=== PATIENT | male | born 1940 | race Caucasian/White ===

== ENCOUNTER → 2016-10-10 | Emergency (ER) | payer MEDICARE, BC, OTHER, MEDICAID ==
[~2016-10-10] VITALS: Ht 180.3 cm; Wt 95.3 kg
[~2016-10-10] MED LIST: ASPI1TAB PO; CALCTAB41 PO; COUM7.5T PO; DIGO0.12 PO; FISH1000 PO; FURO40TA2 PO; GLIM2TAB PO; LOVA1CAP17 PO; METO25TAB PO; MULTCAP PO; NS 500 ML IV ONE; SIMV40TA2 PO; TYLE325T5 PO; VITA200028 PO; VITA500046 PO; WARF-23 PO
[2016-10-10 12:53] LABS: CALCIUM LEVEL 9.8 MG/DL (8.8-10.2); CREATININE FOR GFR 1.51 MG/DL (0.70-1.30); GLOMERULAR FILTRATION RATE 48.1 (>42); POTASSIUM SERUM 3.9 MEQ/L (3.5-5.1)
[2016-10-10 13:27] LABS: MEAN CORPUSCULAR HEMOGLOBIN 30.6 pg (27.0-33.0); MEAN CORPUSCULAR VOLUME 92.7 fl (80.0-96.0); NEUTROPHILS % 65.6 % (36.0-66.0); PLATELET COUNT, AUTOMATED 236 k/mm3 (150-450); RED CELL DISTRIBUTION WIDTH 13.6 % (11.5-14.5); WHITE BLOOD COUNT 8.3 K/mm3 (4.0-10.0)
[2016-10-10 13:28] LABS: BASO # 0.1 K/mm3 (0.0-0.2); BASO % 1.6 % (0.0-1.0); DIFF SLIDE NUMBER 214; EOS # 0.3 K/mm3 (0.0-0.50); EOS % 3.6 % (0.0-3.0); LARGE UNSTAINED CELL # 0.2 K/mm3 (0.0-0.4); LYMPH # 1.8 K/mm3 (1.5-4.5); LYMPH % 21.9 % (24.0-44.0); MONO # 0.5 K/mm3 (0.0-0.8); MONO % 5.4 % (0.0-5.0); NEUTROPHILS # 5.5 K/mm3 (1.8-7.7)
--- NOTE | 2016-10-10 13:28 | REP ---
PORTABLE CHEST, ONE VIEW: HISTORY: Chest pain. COMPARISON: 05/21/2014. The lungs are clear. The cardiac silhouette is enlarged. The pulmonary vasculature is normal in appearance. IMPRESSION: Cardiomegaly. Signed by Joseph Corley MD 10/10/2016 01:30 P
[2016-10-10 13:32] LABS: INR 1.95
[2016-10-10 18:23] VITALS: BP 171/80
--- NOTE | 2016-10-13 08:15 | ECGEPIP ---
Stationary ECG Study [facility] - ED Test Date: 2016-10-10 Pat Name: BELIA PENA Department: Room: - Gender: M Carpenter Assembler: AYUSH : 1940 Requested By: SHARONDA Torres Order Number: [id number] Reading MD: Oswaldo London Measurements Intervals [place] Rate: 76 P: HI: 0 QRS: -60 QRSD: 190 T: 91 QT: 416 QTc: 470 Interpretive Statements ELECTRONIC VENTRICULAR PACEMAKER WITH PVCs Electronically Signed On 10-13-2016 8:15:02 EDT by Oswaldo London
== END | disposition home or self-care (01) ==
LOC: EDUNIT# 10:25 → M ED 17:48
DX: R53.83 Other fatigue (principal); R00.2 Palpitations; I51.7 Cardiomegaly; I50.9 Heart failure, unspecified; I10 Essential (primary) hypertension; Z95.0 Presence of cardiac pacemaker

== ENCOUNTER → 2017-07-15 | Outpatient (REF) | payer MEDICARE, OTHER ==
[2017-07-15 16:56] LABS: URIC ACID 7.1 MG/DL (3.5-7.2)
== END ==
LOC: M SFHCCLAY 11:27
DX: M10.9 Gout, unspecified (principal)
CPT/HCPCS: 84550

== ENCOUNTER → 2017-08-06 | Outpatient (REF) | payer MEDICARE, OTHER ==
[2017-08-06 17:21] LABS: URIC ACID 6.5 MG/DL (3.5-7.2)
== END ==
LOC: M SFHCCLAY 11:36
DX: M1A.0710 Idiopathic chronic gout, right ankle and foot, without tophus (tophi) (principal)
CPT/HCPCS: 84550

== ENCOUNTER → 2020-02-08 | Outpatient (REF) | payer MEDICARE, OTHER ==
[~2020-02-08] MED LIST changes: -ASPI1TAB PO; +ASPI81TA26 PO; -COUM7.5T PO; +COUM7.5T6 PO; -GLIM2TAB PO; +GLIM2TAB4 PO; +METO1TAB63 PO; -METO25TAB PO; -NS 500 ML IV ONE; -SIMV40TA2 PO; +SIMV40TA20 PO
[2020-02-08 16:39] LABS: HEMATOCRIT 38.8 % (42.0-52.0); HEMOGLOBIN 12.3 g/dl (13.5-17.5); MEAN CORPUSCULAR HEMOGLOBIN 29.7 pg (27.0-33.0); MEAN CORPUSCULAR HGB CONC 31.7 g/dl (32.0-36.5); MEAN CORPUSCULAR VOLUME 93.7 fl (80.0-96.0); PLATELET COUNT, AUTOMATED 209 10^3/uL (150-450); RED BLOOD COUNT 4.14 10^6/uL (4.30-6.10); WHITE BLOOD COUNT 8.1 10^3/uL (4.0-10.0)
[2020-02-08 17:03] LABS: CALCIUM LEVEL 9.1 MG/DL (8.8-10.2); CREATININE FOR GFR 1.28 MG/DL (0.70-1.30); GLOMERULAR FILTRATION RATE 57.7 (>42); POTASSIUM SERUM 4.1 MEQ/L (3.5-5.1); URIC ACID 5.5 MG/DL (3.5-7.2)
[2020-02-08 17:30] LABS: HEMOGLOBIN A1c 5.6 %
== END ==
LOC: M SFHCCLAY 11:43
PROVIDERS: ATTEND Family Medicine
DX: I48.20 Chronic atrial fibrillation, unspecified (principal); E11.9 Type 2 diabetes mellitus without complications; E79.0 Hyperuricemia without signs of inflammatory arthritis and tophaceous disease; Z87.19 Personal history of other diseases of the digestive system; Z23 Encounter for immunization
CPT/HCPCS: 80048; 83036; 83540; 84550; 85027; 90682; G0008; G0463

== ENCOUNTER → 2020-09-26 | Outpatient (CLI) | payer MEDICARE, OTHER ==
--- NOTE | 2020-09-26 11:32 | REP ---
INDICATION: LEFT HIP PAIN COMPARISON: None. TECHNIQUE: AP and frog-lateral views of the left hip FINDINGS: Advanced arthritic changes include essentially complete joint space obliteration with periarticular sclerosis/heterogeneity and small cystic changes as well as marginal spurring/early osteophyte formation. No acute fracture or dislocation. IMPRESSION: Early advanced osteoarthritic degenerative changes. <Electronically signed by Randall Abdullahi > 09/26/20 1125
== END ==
LOC: M CLY 11:01
PROVIDERS: ATTEND Family Medicine
DX: M16.12 Unilateral primary osteoarthritis, left hip (principal); M25.552 Pain in left hip; Z79.01 Long term (current) use of anticoagulants
CPT/HCPCS: 73502; 85610; G0463

== ENCOUNTER → 2020-10-02 | Outpatient (CLI) | payer MEDICARE, OTHER ==
--- NOTE | 2020-10-02 15:27 | REP ---
INDICATION: R05 COMPARISON: 10/10/2016 TECHNIQUE: PA and lateral. FINDINGS: Cardiomegaly is appreciated with single lead pacemaker in satisfactory position. The lung li demonstrate chronic appearing changes without acute consolidation, effusion, or pneumothorax. The skeletal structures are intact and normal. IMPRESSION: Cardiomegaly. No acute cardiopulmonary process. <Electronically signed by Randall Abdullahi > 10/02/20 7231
== END ==
LOC: M CLY 15:03
PROVIDERS: ATTEND Physician Assistant
DX: I51.7 Cardiomegaly (principal); R05 Cough; Z95.0 Presence of cardiac pacemaker
CPT/HCPCS: 71046; G0463

== ENCOUNTER → 2021-02-23 | Outpatient (CLI) | payer MEDICARE, BC, OTHER ==
[~2021-02-23] MED LIST changes: +ALLO100T PO; +BENE1POW5 PO; +ERGO500029 PO; +FERR325T81 PO; +SENO8.6T5 PO; +SIMV10TA21 PO; +VITMTA PO; +WARF4TAB51 PO
== END ==
LOC: M LABSMTC 09:46
PROVIDERS: ATTEND Anesthesiology
DX: Z01.812 Encounter for preprocedural laboratory examination (principal); Z20.822 Contact with and (suspected) exposure to COVID-19

== ENCOUNTER 2021-02-28 07:24 | Day surgery (SDC) | payer MEDICARE, BC, OTHER ==
[~2021-02-28] VITALS: Ht 180.3 cm; Wt 102.0 kg
[~2021-02-28 07:24] MED LIST changes: +LR 1,000 ML IV SCH; +MAXITROL OPHTH SUSP 5 ML As Ordered ONE; +MIDAZOLAM INJ 2MG/2ML VIAL (J2250 PER 1MG) As Ordered ONE; +fentaNYL 100 MCG/2 ML INJECTION (J3010) As Ordered ONE
--- OUTSIDE RECORDS SUMMARY | 2021-02-28 07:33 | CCD ---
Author Author [facility] Organization [facility] Address Unknown Phone Unavailable Care Team Providers Care Avionics Systems Integration Specialist Name Role Phone Thomas Griffith Unavailable PROBLEMS Type Condition ICD9-CM Code PRU42-SW Code Onset Dates Condition S tatus W/U Status Risk SNOMED Code Notes Problem Encounter for therapeutic drug monitoring Z51.81 Active confirmed 969875349 Problem Diabetes mellitus E11.9 Active confirmed 73 903721 Problem Acute gout of right foot, unspecified cause M10.9 Active confirmed 054334621 Problem S/P cardiac pacemaker procedure Z95.0 Active confi rmed 996327270 Problem Encounter for general adult medical exam ination with abnormal findings Z00.01 Active confirmed 721250301 Problem Dementia without behavioral disturbance, unspeci fied dementia type F03.90 Active confirmed 69954450 Problem Nocturnal hypoxemia G47.34 Active confirmed 679362482 Problem Other insomnia G47.09 Active confirmed 15445 2001 Problem Diverticulosis K57.90 Active confirmed 02471 1000 Problem Atrial fibrillation, persistent I48.19 Active confi rmed 537814933 Problem History of GI bleed Z87.19 Active confirmed 795927851 Problem long-term current use of anticoagulant therapy Z79 .01 Active confirmed 858028765 Problem Hyperuricemia E79.0 Active confirmed 063925 06 Problem long-term (current) use of anticoagulants Z79.01 Active confirmed 032884105 Problem Longstanding persistent atrial fibrillation I48.11 Active confirmed 676824433 Problem Constipation, unspecified constipation type K59.00 Active confirmed 62008340 Problem 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 Active confirmed [id number] ALLERGIES No Known Allergies ENCOUNTERS from 1940 to 2021-02-22 Encounter Location Date Provider Diagnosis [facility] August LY [phone] [place] [address] Feb, Thomas Griffith Encounter for immunization Z23 ; Pre-op exam Z01.818 ; Diabetes mellitus E11.9 ; Acute gout of right foot, unspecified cause M10.9 ; Longstanding persistent atrial fibrillation I48.11 ; Atrial fibrillation, persistent I48.19 and S/P cardiac pacemaker procedure Z95.0 IMMUNIZATIONS Vaccine Route Administration Date Status Influenza (High Dose 65 & up) Unknown Apr 10, 2018 Ad ministered Zoster 50mcg/0.5mL Shingrix Unknown August 18, 2018 Admi nistered Zoster 50mcg/0.5mL Shingrix Unknown October 18, 2018 Admi nistered JJ/Ethan COVID-19 (given elsewhere) SA RS-COV-2 vaccine, vector non- replicating, recombinant spike protein-Ad26, preservative free, 0.5 mL Unknown August 09, 2020 Administered Influenza (High Dose 65 & up) IM Intramuscular Mar 08, 2015 A dministered Influenza (High Dose 65 & up) IM Intramuscular Feb 07, 2016 A dministered Influenza (High Dose 65 & up) Unknown Feb 18, 2017 Ad ministered Influenza 6mo & up Fluzone IM Intramuscular May 14, 2010 Admi nistered Influenza 18 yrs & older Flublok IM Intramuscular Feb 08, 2020 Administered Influenza 18 yrs & older Flublok IM Intramuscular Feb 21, 2021 Administered Pneumococcal Adult 0.5mL Pneumovax 23 IM Intramuscular Dec 27 021 Administered Pneumococcal Adult 0.5mL Pneumovax 23 Unknown Jan 10 004 Administered TDAP 0.5mL (Boostrix) IM Intramuscular Dec 08, 2017 Administe red Pneumococcal 0.5mL Prevnar 13 IM Intramuscular Feb 07, 2016 A dministered Influenza 6mo & up Fluzone IM Intramuscular Apr 12, 2014 Admi nistered Influenza 6mo & up Fluzone IM Intramuscular Feb 24, 2013 Admi nistered Influenza 6mo & up Fluzone IM Intramuscular Mar 23, 2012 Admi nistered Influenza 6mo & up Fluzone IM Intramuscular Apr 09, 2011 Admi nistered SOCIAL HISTORY Tobacco Use: Social History Observation Description Date Details (start date - stop date) Former Smoker Sex Assigned At : Social History Observation Description Sex Assigned At Unknown Audit Question Answer Notes Total Score: 0 Interpretation: Alcohol Education Sexual Hx: Question Answer Notes Had sex in the last 12 months (vaginal, oral, or anal)? No Have you ever had an STD? No Drug and Alcohol Question Answer Notes Total Score: 0 Interpretation: No problems reported Alcohol Screening: Question Answer Notes Did you have a drink containing alcohol in the past year? No Points 0 Interpretation Negative BMI Care Goal Follow-Up Question Answer Notes Above Normal BMI Follow-Up Dietary management educatio n, guidance, and counseling Tobacco Use: Question Answer Notes Are you a: former smoker former smoker quit 1 997 Additional Findings: Tobacco User none Additional Findings: Tobacco Non-User Current non-smoker How long has it been since you last smoked? > 10 years updated 02/21/2021 REASON FOR REFERRAL No Information VITAL SIGNS Weight 227 lbs Feb, Height 71" in Feb, BMI 31.66 kg/m2 Feb, Heart Rate 68 /min Feb, Respiratory Rate 19 /min Feb, Temperature 97.8 degrees Fahrenheit Feb, Oximetry 97RA Feb, Blood pressure systolic 114 mm Hg Feb, Blood pressure diastolic 75 mm Hg Feb, MEDICATIONS Medication SIG (Take, Route, Frequency, Duration) Notes Start Da te End Date Status Lancets as directed - daily Jul, Act aaron Iron 325 (65 Fe) MG 1 tablet Orally every other day Active Multivitamins 1 tab Orally once a day Active Ergocalciferol 27224 UNIT 1 capsule Orally weekly Active Warfarin Sodium 2 MG 4 tablet (or as directed) Orally Once a day Active Senokot S 8.6-50 MG 1 tablet Orally bid Nov, Active Glimepiride 2MG 1 tab daily Daily Ac tive Zocor 10MG take 1 tablet once daily every evening Orally Once a day Active Flonase Allergy Relief 50 MCG/ACT 1 spray in each nostril Nasall y bid Oct, Active Glucostix - as directed In Vitro daily Jul, Active Benefiber - 1-3 tsp Orally Daily Nov, A ctive Furosemide 40 MG 1 tablet Orally bid, with 3r d dose if weight up 4 lb in am.(Dr. Chacon) for 90 day(s) Active Allopurinol 100 MG 2 tablet Orally Once a day Active PROCEDURES from 1940 to 2021-02-22 Procedure Date Ordered Result Body Site Imm: Flublok Quadrivalent 18 years & older 0.5mL IM Influenza 21-02-21 N/A RESULTS Component Value Reference Range PT-INR Fingerstick Reviewed date:02/21/2021 15:18:11 Interpretation: Performing Lab:[facility] [place] [address] INR 2.3 Verified Patient's Name and yes Current Dose 1 8mg Mon and Fri Current Dose 2 7mg ROW Tab Strength 2mg tabs Indication for Anticoagulation AFIB Recent Bleeding no Internal QC Acceptable (Y/N) yes Therapeutic Range 2-3 Education Given (Date / Initials) New Dose 1 no change in dose per New Dose 2 Weekly Total Next PT-INR 4 weeks 2021 - daughter aware - REASON FOR VISIT LEFT EYE CATARACT REMOVAL EKG TO BE DONE LOCAL W/SEDATION DR RICHARDSON /1 week INR check also MEDICAL (GENERAL) HISTORY Type Description Date Medical History HYPERTENSION Medical History ALCOHOLISM Medical History COPD Medical History OBESITY Medical History ANEMIA Medical History ABNORMAL LIVER FUNCTION, NEG ATIVE HEPATITIS SCREEN NEGATIVE ULTRASOUND OF THE LIVER 06/12 Medical History DIABETES 2001 Medical History ELEVATED CHOLESTEROL Medical History LOW VITAMIN D Medical History ATRIAL FIBRILLATION 05/14 Medical History NO COLONOSCOPY Medical History Echo 05/19/14 showed EF of 35% Medical History pacemaker Medical History Chronic atrial fibrillation Surgical History pacemaker 09/30/2016 Surgical History UGI Bleed 10/14/2019 Hospitalization History [facility] fluid retention 07/2014 Hospitalization History UGI bleed 10/14/2019 Goals Section No Information Health Concerns No Information MEDICAL EQUIPMENT No Information MENTAL STATUS No Information FUNCTIONAL STATUS No Information ASSESSMENTS Encounter Date Diagnosis Assessment Notes Treatment Notes Treatm ent Clinical Notes Feb, Encounter for immunization (ICD-10 - Z23) Patient Educated with: Flu Recombinant [id number] (Flu Recombinant [id number].pdf) Feb, Pre-op exam (ICD-10 - Z01.818) 1. Urgency of the surgery: elective 2. Active Cardiac Conditions: none 3. Surgery-specific risk: low 4: Patient's functional capacity: Low 5: Clinical risk factors: Patient is a suitable low risk candidate for the proposed operation. Patent should not take his meds that morning. It is ok to continue warfarin without interruption since bleeding is not anticipated during the procedure but if his surgeon needs for him to stop then he may interrupt the med for 3 days before the procedure. Recommendation: Feb, Diabetes mellitus (ICD-10 - E11.9) Feb, Acute gout of right foot, unspecified cause (ICD -10 - M10.9) Feb, Longstanding persistent atrial fibrillation (ICD -10 - I48.11) Feb, Atrial fibrillation, persistent (ICD-10 - I48.19 ) continue warfarin at current dose, repeat INR 4 weeks Feb, S/P cardiac pacemaker procedure (ICD-10 - Z95.0) PLAN OF TREATMENT Medication Medication Name Sig Start Date Stop Date Multivitamins 1 tab Orally once a day Warfarin Sodium 2 MG 4 tablet (or as directed) Orally Once a da y Iron 325 (65 Fe) MG 1 tablet Orally every other day Benefiber - 1-3 tsp Orally Daily Nov, Ergocalciferol 39146 UNIT 1 capsule Orally weekly Flonase Allergy Relief 50 MCG/ACT 1 spray in each nostril Na nick bid Oct, Senokot S 8.6-50 MG 1 tablet Orally bid Nov, Glimepiride 2MG 1 tab daily Daily Allopurinol 100 MG 2 tablet Orally Once a day Zocor 10MG take 1 tablet once daily every evening Orally Once a day Lancets as directed - daily Jul, Glucostix - as directed In Vitro daily Jul, Treatment Notes Assessment Notes Clinical Notes Encounter for immunization Patient Educated with: Flu Recombinant [id number] (Flu Recombinant [id number].pdf) Pre-op exam 1. Urgency of the surgery: e lective2. Active Cardiac Conditions: none3. Surgery-specific risk: low4: Patient's functional capacity: Low5: Clinical risk factors: Patient is a suitable low risk candidate for the proposed operation. Patent should not take his meds that morning. It is ok to continue warfarin without interruption since bleeding is not anticipated during the procedure but if his surgeon needs for him to stop then he may interrupt the med for 3 days before the procedure.Recommendation: Atrial fibrillation, persistent continue warfarin at c urrent dose, repeat INR 4 weeks Next Appt Details 3 Months Reason: Provider Name:Emma Alfonso, 2021-03 07:15:00 AM, [address] , , [place], [address], Provider Name:Thomas Griffith, 2021-04-11 11 :00:00 AM, [address], , [place], [address], Insurance Providers Payer Name Payer Address Payer Phone Insured Name Patient Relati onship to Insured Coverage Start Date Coverage End Date [facility] [address] [facility] [id number] [facility] MEDICARE Part A and B [address] [facility] [phone] BELIA PENA self
--- OUTSIDE RECORDS SUMMARY | 2021-02-28 07:33 | CCD ---
Author Author [facility] Organization [facility] Address Unknown Phone Unavailable Care Team Providers Care Instructional Interventionist Name Role Phone Thomas Griffith Unavailable PROBLEMS Type Condition ICD9-CM Code KXL96-JV Code Onset Dates Condition S tatus W/U Status Risk SNOMED Code Notes Problem Encounter for therapeutic drug monitoring Z51.81 Active confirmed 738021965 Problem Diabetes mellitus E11.9 Active confirmed 73 993622 Problem Acute gout of right foot, unspecified cause M10.9 Active confirmed 726325148 Problem S/P cardiac pacemaker procedure Z95.0 Active confi rmed 434445322 Problem Encounter for general adult medical exam ination with abnormal findings Z00.01 Active confirmed 069425779 Problem Dementia without behavioral disturbance, unspeci fied dementia type F03.90 Active confirmed 90433876 Problem Nocturnal hypoxemia G47.34 Active confirmed 774267618 Problem Other insomnia G47.09 Active confirmed 79932 2001 Problem Diverticulosis K57.90 Active confirmed 46031 1000 Problem Atrial fibrillation, persistent I48.19 Active confi rmed 868010833 Problem History of GI bleed Z87.19 Active confirmed 223099358 Problem custodial current use of anticoagulant therapy Z79 .01 Active confirmed 200175456 Problem Hyperuricemia E79.0 Active confirmed 486005 06 Problem custodial (current) use of anticoagulants Z79.01 Active confirmed 638537776 Problem Longstanding persistent atrial fibrillation I48.11 Active confirmed 032292619 Problem Constipation, unspecified constipation type K59.00 Active confirmed 33593901 Problem 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 Active confirmed [id number] ALLERGIES No Known Allergies ENCOUNTERS from 1940 to 2021-02-19 Encounter Location Date Provider Diagnosis [facility] August LY [phone] [place] [address] Feb, 2021 Thomas Griffith 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.01 and Atrial fibrillation, persistent I48.19 IMMUNIZATIONS Vaccine Route Administration Date Status Influenza (High Dose 65 & up) Unknown Apr 10, 2018 Ad ministered Zoster 50mcg/0.5mL Shingrix Unknown August 18, 2018 Admi nistered Zoster 50mcg/0.5mL Shingrix Unknown October 18, 2018 Admi nistered JJ/[employer] COVID-19 (given elsewhere) SA RS-COV-2 vaccine, vector [...] Flublok IM Intramuscular Feb 08, 2020 Administered Pneumococcal Adult 0.5mL Pneumovax 23 IM Intramuscular Dec 27, 021 Administered Pneumococcal Adult 0.5mL Pneumovax 23 Unknown Jan 10, 004 Administered TDAP 0.5mL (Boostrix) IM Intramuscular [...] you last smoked? > 10 years updated 12/27/2020 REASON FOR REFERRAL No Information VITAL SIGNS No information MEDICATIONS Medication SIG (Take, Route, Frequency, Duration) Notes Start Da te End Date Status Benefiber - 1-3 tsp Orally Daily Nov, A ctive Glucostix - as directed In Vitro daily Jul, Active Lancets as directed - daily Jul, Act aaron Allopurinol 100 MG 2 tablet Orally Once a day for 90 day(s) Active Warfarin Sodium 2 MG 4 tablet (or as directed) Orally Once a day for 90 day(s) Active Flonase Allergy Relief 50 MCG/ACT 1 spray in each nost ril Nasally bid for 90 day(s) Oct, Active Senokot S 8.6-50 MG 1 tablet Orally bid for 90 day(s) 2019 Active Zocor 10MG take 1 tablet once daily e very evening Orally Once a day for 90 day(s) Active Iron 325 (65 Fe) MG 1 tablet Orally every other day Active Furosemide 40 MG 1 tablet Orally bid, with 3r d dose if weight up 4 lb in am.(Dr. Chacon) for 90 day(s) Active Multivitamins 1 tab Orally once a day Active Glimepiride 2MG 1 tab daily Daily for 90 day(s) Active Ergocalciferol 41726 UNIT 1 capsule Orally weekly for 90 day(s) Active PROCEDURES No Information RESULTS Component Value Reference Range PT-INR Reviewed date:02/14/2021 17:12:02 Interpretation: Performing Lab:[facility] [place], [place] [address] INR 1.54 Verified Patient's Name and Done @ [facility] Current Dose 1 8mg Mon and Fri Current Dose 2 7mg ROW Tab Strength Indication for Anticoagulation AFIB Ecchymosis or Bleeding Noted INR Range 2-3 Prothrombin Time/INR 15.9 Protime 1.54 Hold for Day(s) Education Given (Date / Initials) New Dose 1 per no change recheck 1 week New Dose 2 Next PT Check 1 week daughter aware Comments for PT-INR REASON FOR VISIT [facility] PT/INR MEDICAL (GENERAL) HISTORY Type Description Date Medical [...] Treatment Notes Treatm ent Clinical Notes Feb, moth exterminator current use of anticoagulant therapy ( ICD-10 - Z79.01) Feb, Atrial fibrillation, persistent (ICD-10 - I48.19 ) PLAN OF TREATMENT Medication Medication Name Sig Start Date Stop Date Warfarin Sodium 2 MG 4 tablet (or as directed) Orally Once a day for 90 day(s) Glimepiride 2MG 1 tab daily Daily for 90 day(s) Allopurinol 100 MG 2 tablet Orally Once a day for 90 day(s) Lancets as directed - daily Jul, Senokot S 8.6-50 MG 1 tablet Orally bid for 90 day(s) Nov, 20 Benefiber - 1-3 tsp Orally Daily Nov, Zocor 10MG take 1 tablet once daily e very evening Orally Once a day for 90 day(s) Glucostix - as directed In Vitro daily Jul, Furosemide 40 MG 1 tablet Orally bid, with 3r d dose if weight up 4 lb in am.(Dr. Chacon) for 90 day(s) Ergocalciferol 20749 UNIT 1 capsule Orally weekly for 90 day(s) Flonase Allergy Relief 50 MCG/ACT 1 spray in each nost ril Nasally bid for 90 day(s) Oct, Iron 325 (65 Fe) MG 1 tablet Orally every other day Multivitamins 1 tab Orally once a day Next Appt Details Provider Name:Thomas Griffith, 2021-02-21 09 :00:00 AM, [address], , [place], [address], Provider Name:Thomas Griffith, 2021-04-11 11 :00:00 AM, [address], , [place], [address], Insurance Providers Payer Name Payer Address Payer Phone Insured Name Patient Relati onship to Insured Coverage Start Date Coverage End Date MEDICARE Part A and B [address] [facility] [phone] BELIA PENA [facility] [address] [facility] [id number] BELIA PENA
--- OUTSIDE RECORDS SUMMARY | 2021-02-28 07:33 | CCD ---
Author Author [facility] Organization [facility] Address Unknown Phone Unavailable Care Team Providers Care Chief Nurse Executive Name Role Phone Emma Alfonso Unavailable PROBLEMS Type Condition ICD9-CM Code NAD90-EL Code Onset Dates Condition S tatus W/U Status Risk SNOMED Code Notes Problem Encounter for therapeutic drug monitoring Z51.81 Active confirmed 239587388 Problem Diabetes mellitus E11.9 Active confirmed 73 845684 Problem Acute gout of right foot, unspecified cause M10.9 Active confirmed 121551871 Problem S/P cardiac pacemaker procedure Z95.0 Active confi rmed 957781588 Problem Encounter for general adult medical exam ination with abnormal findings Z00.01 Active confirmed 041893246 Problem Dementia without behavioral disturbance, unspeci fied dementia type F03.90 Active confirmed 10752482 Problem Nocturnal hypoxemia G47.34 Active confirmed 759753234 Problem Other insomnia G47.09 Active confirmed 93171 2001 Problem Diverticulosis K57.90 Active confirmed 49098 1000 Problem Atrial fibrillation, persistent I48.19 Active confi rmed 270591523 Problem History of GI bleed Z87.19 Active confirmed 229111150 Problem half-way current use of anticoagulant therapy Z79 .01 Active confirmed 925506643 Problem Hyperuricemia E79.0 Active confirmed 914127 06 Problem terminal carman (current) use of anticoagulants Z79.01 Active confirmed 597724391 Problem Longstanding persistent atrial fibrillation I48.11 Active confirmed 788245461 Problem Constipation, unspecified constipation type K59.00 Active confirmed 03165954 Problem 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 Active confirmed 773748047256442 ALLERGIES No Known Allergies ENCOUNTERS from 1940 to 2021-02-05 Encounter Location Date Provider Diagnosis [facility] August LY [phone] [place] [address] Jan, 2021 Emma Alfonso half-way current use of anticoagulant t herapy Z79.01 and Atrial fibrillation, persistent I48.19 IMMUNIZATIONS Vaccine Route Administration Date Status Influenza (High Dose 65 & up) Unknown Apr 10, 2018 Ad ministered Zoster 50mcg/0.5mL Shingrix Unknown August 18, 2018 Admi nistered Zoster 50mcg/0.5mL Shingrix Unknown October 18, 2018 Admi nistered J&J/Ethan COVID- 19 (given elsewhere) SARS-COV-2 vaccine, vector non- replicating, recombinant spike protein-Ad26, [...] daily Daily for 90 day(s) Active Ergocalciferol 74442 UNIT 1 capsule Orally weekly for 90 day(s) Active PROCEDURES No Information RESULTS Component Value Reference Range PT-INR Reviewed date:01/31/2021 13:43:57 Interpretation: Performing Lab:[facility], [place] [address] INR Verified Patient's Name and [facility] Current Dose 1 8mg mon and fri Current Dose 2 7mg ROW Tab Strength Indication for Anticoagulation AFIB Ecchymosis or Bleeding Noted INR Range 2-3 Prothrombin Time/INR 23.7 Protime 2.30 Hold for Day(s) Education Given (Date / Initials) New Dose 1 no change per New Dose 2 Next PT Check 2 weeks 02/14/2021 Comments for PT-INR Cristofer aware REASON FOR VISIT FS/INR MEDICAL (GENERAL) HISTORY Type Description Date Medical [...] Notes Treatment Notes Treatm ent Clinical Notes Jan, terminal carman current use of anticoagulant therapy ( ICD-10 - Z79.01) Jan, Atrial fibrillation, persistent (ICD-10 - I48.19 ) [...] in am.(Dr. Chacon) for 90 day(s) Ergocalciferol 28444 UNIT 1 capsule Orally weekly for 90 day(s) Flonase Allergy Relief 50 MCG/ACT 1 spray in each nost ril Nasally bid for 90 day(s) Oct, Iron 325 (65 Fe) MG 1 tablet Orally every other day Multivitamins 1 tab Orally once a day Next Appt Details Provider Name:Thomas Addison Griffith, 2021-02-14 09 :00:00 AM, [address] , , [place], [address], Provider Name:Thomas Addison Nacho, 2021-02-21 09 :00:00 AM, [address] , , [place], [address], Provider Name:Thomas Cyn Griffith, 2021-04-11 11 :00:00 AM, [address], , [place], [address], Insurance Providers Payer Name Payer Address Payer Phone Insured Name Patient Relati onship to Insured Coverage Start Date Coverage End Date [facility] [address] [facility] [id number] [phone] BELIA PENA self MEDICARE Part A and B [address] [facility] [address] [phone] BELIA PENA self
--- OUTSIDE RECORDS SUMMARY | 2021-02-28 07:34 | CCD ---
Author Author [facility] Organization [facility] Address Unknown Phone Unavailable Care Team Providers Care Defence Force Member Other Ranks Name Role Phone Cyn Collier MD Unavailable Unavailable Cyn Collier MD Unavailable Unavailable Cyn Collier MD Unavailable Unavailable Cyn Collier MD Unavailable Unavailable Cyn Collier MD Unavailable Unavailable Cyn Collier MD Unavailable Unavailable Cyn Collier MD Unavailable Unavailable Cyn Collier MD Unavailable Unavailable Cyn Collier MD Unavailable Unavailable Cyn Collier MD Unavailable Unavailable Cyn Collier MD Unavailable Unavailable Cyn Collier MD Unavailable Unavailable Cyn Collier MD Unavailable Unavailable Cyn Collier MD Unavailable Unavailable Cyn Collier MD Unavailable Unavailable Cyn Collier MD Unavailable Unavailable Cyn Collier MD Unavailable Unavailable Cyn Collier MD Unavailable Unavailable Cyn Collier MD Unavailable Unavailable Cyn Collier MD Unavailable Unavailable Cyn Collier MD Unavailable Unavailable Cyn Collier MD Unavailable Unavailable Cyn Collier MD Unavailable Unavailable Cyn Collier MD Unavailable Unavailable Cyn Collier MD Unavailable Unavailable Cyn Collier MD Unavailable Unavailable Cyn Collier MD Unavailable Unavailable Cyn Collier MD Unavailable Unavailable Cyn Collier MD Unavailable Unavailable Cyn Collier MD Unavailable Unavailable Cyn Collier MD Unavailable Unavailable Cyn Collier MD Unavailable Unavailable Cyn Collier MD Unavailable Unavailable Cyn Collier MD Unavailable Unavailable Cyn Collier MD Unavailable Unavailable Cyn Collier MD Unavailable Unavailable Cyn Collier MD Unavailable Unavailable Cyn Collier MD Unavailable Unavailable Cyn Collier MD Unavailable Unavailable Cyn Collier MD Unavailable Unavailable Cyn Collier MD Unavailable Unavailable Cyn Collier MD Unavailable Unavailable yCn Collier MD Unavailable Unavailable Cyn Collier MD Unavailable Unavailable Cyn Collier MD Unavailable Unavailable Cyn Collier MD Unavailable Unavailable Cyn Collier MD Unavailable Unavailable Cyn Collier MD Unavailable Unavailable Cyn Collier MD Unavailable Unavailable Cyn Collier MD Unavailable Unavailable Cyn Collier MD Unavailable Unavailable Cyn Collier MD Unavailable Unavailable Cyn Collier MD Unavailable Unavailable Cyn Collier MD Unavailable Unavailable Cyn Collier MD Unavailable Unavailable Cyn Collier MD Unavailable Unavailable Cyn Collier MD Unavailable Unavailable Cyn Collier MD Unavailable Unavailable Cyn Collier MD Unavailable Unavailable Cyn Collier MD Unavailable Unavailable Cyn Collier MD Unavailable Unavailable Cyn Collier MD Unavailable Unavailable Cyn Collier MD Unavailable Unavailable Cyn Collier MD Unavailable Unavailable Cyn Collier MD Unavailable Unavailable Cyn Collier MD Unavailable Unavailable Cyn Collier MD Unavailable Unavailable Cyn Collier MD Unavailable Unavailable Cyn Collier MD Unavailable Unavailable Cyn Collier MD Unavailable Unavailable Cyn Collier MD Unavailable Unavailable Cyn Collier MD Unavailable Unavailable Cyn Collier MD Unavailable Unavailable Cyn Collier MD Unavailable Unavailable Tulio, Reginah W Tanisha NATIONAL ACCOUNT EXECUTIVE-C Unavailable Unavailabl e Utlio, Reginah W Tanisha NATIONAL ACCOUNT EXECUTIVE-C Unavailable Unavailabl e Tulio, Reginah W Tanisha NATIONAL ACCOUNT EXECUTIVE-C Unavailable Unavailabl e Tulio, Reginah W Tanisha NATIONAL ACCOUNT EXECUTIVE-C Unavailable Unavailabl e Tulio, Reginah W Tanisha NATIONAL ACCOUNT EXECUTIVE-C Unavailable Unavailabl e Tulio, Reginah W Tanisha NATIONAL ACCOUNT EXECUTIVE-C Unavailable Unavailabl e Tulio, Reginah W Tanisha NATIONAL ACCOUNT EXECUTIVE-C Unavailable Unavailabl e Tulio, Reginah W Tanisha NATIONAL ACCOUNT EXECUTIVE-C Unavailable Unavailabl e Tulio, Reginah W Tanisha NATIONAL ACCOUNT EXECUTIVE-C Unavailable Unavailabl e Tulio, Reginah W Tanisha NATIONAL ACCOUNT EXECUTIVE-C Unavailable Unavailabl e Tulio, Reginagarret W Tanisha NATIONAL ACCOUNT EXECUTIVE-C Unavailable Unavailabl e Tulio, Reginagarret W Tanisha NATIONAL ACCOUNT EXECUTIVE-C Unavailable Unavailabl e Tulio, Reginagarret W Tanisha NATIONAL ACCOUNT EXECUTIVE-C Unavailable Unavailabl e Tulio, Reymundoinagarret W Tanisha NATIONAL ACCOUNT EXECUTIVE-C Unavailable Unavailabl e Tulio, Reginagarret W Tanisha NATIONAL ACCOUNT EXECUTIVE-C Unavailable Unavailabl e Tulio, Reginagarret W Tanisha NATIONAL ACCOUNT EXECUTIVE-C Unavailable Unavailabl e Tulio, Reginagarret W Tanisha NATIONAL ACCOUNT EXECUTIVE-C Unavailable Unavailabl e Tulio, Reginagarret W Tanisha NATIONAL ACCOUNT EXECUTIVE-C Unavailable Unavailabl e Tulio, Reymundoinagarret W Tanisha NATIONAL ACCOUNT EXECUTIVE-C Unavailable Unavailabl e Tulio, Reginagarret W Tanisha NATIONAL ACCOUNT EXECUTIVE-C Unavailable Unavailabl e Tulio, Reginagarret W Tanisha NATIONAL ACCOUNT EXECUTIVE-C Unavailable Unavailabl e Tulio, Reginagarret W Tanisha NATIONAL ACCOUNT EXECUTIVE-C Unavailable Unavailabl e Tulio, Reginagarret W Tanisha NATIONAL ACCOUNT EXECUTIVE-C Unavailable Unavailabl e Tulio, Reginagarret W Tanisha NATIONAL ACCOUNT EXECUTIVE-C Unavailable Unavailabl e Tulio, Reginagarret W Tanisha NATIONAL ACCOUNT EXECUTIVE-C Unavailable Unavailabl e Tulio, Reginagarret W Tanisha NATIONAL ACCOUNT EXECUTIVE-C Unavailable Unavailabl e Tulio, Regbecky W Tanisha NATIONAL ACCOUNT EXECUTIVE-C Unavailable Unavailabl e Tulio, Reginagarret W Tanisha NATIONAL ACCOUNT EXECUTIVE-C Unavailable Unavailabl e Tulio, Reginagarret W Tanisha NATIONAL ACCOUNT EXECUTIVE-C Unavailable Unavailabl e Tulio, Reginagarret W Tanisha NATIONAL ACCOUNT EXECUTIVE-C Unavailable Unavailabl e Tulio, Reginagarret W Tanisha NATIONAL ACCOUNT EXECUTIVE-C Unavailable Unavailabl e Tulio, Reginagarret W Tanisha NATIONAL ACCOUNT EXECUTIVE-C Unavailable Unavailabl e ERVIN, WAQAS AGGARWAL Unavailable Unavailable ERVINWAQAS MD Unavailable Unavailable ERVINWAQAS MD Unavailable Unavailable ERVINWAQAS MD Unavailable Unavailable ERVINWAAQS MD Unavailable Unavailable ERVINWAQAS MD Unavailable Unavailable ERVINWAQAS MD Unavailable Unavailable ERVINWAQAS MD Unavailable Unavailable ERVINWAQAS MD Unavailable Unavailable ERVIN, WAQAS AGGARWAL Unavailable Unavailable ERVIN, WAQAS AGGARWAL Unavailable Unavailable ERVIN, WAQAS AGGARWAL Unavailable Unavailable ERVIN, WAQAS AGGARWAL Unavailable Unavailable ERVIN, WAQAS AGGARWAL Unavailable Unavailable ERVIN, WAQAS AGGARWAL Unavailable Unavailable ERVIN, WAQAS AGGARWAL Unavailable Unavailable ERVIN, WAQAS AGGARWAL Unavailable Unavailable ERVIN, WAQAS AGGARWAL Unavailable Unavailable ERVIN, WAQAS AGGARWAL Unavailable Unavailable ERVIN, WAQAS AGGARWAL Unavailable Unavailable ERVIN, WAQAS AGGARWAL Unavailable Unavailable ERVIN, WAQAS AGGARWAL Unavailable Unavailable ERVIN, WAQAS AGGARWAL Unavailable Unavailable ERVIN, WAQAS AGGARWAL Unavailable Unavailable ERVIN, WAQAS AGGARWAL Unavailable Unavailable ERVIN, WAQAS AGGARWAL Unavailable Unavailable ERVIN, WAQAS AGGARWAL Unavailable Unavailable ERVIN, WAQAS AGGARWAL Unavailable Unavailable ERVIN, WAQAS AGGARWAL Unavailable Unavailable ERVIN, WAQAS AGGARWAL Unavailable Unavailable ERVIN, WAQAS AGGARWAL Unavailable Unavailable ERVIN, WAQAS AGGARWAL Unavailable Unavailable ERVIN, WAQAS AGGARWAL Unavailable Unavailable ERVIN, WAQAS AGGARWAL Unavailable Unavailable ERVIN, WAQAS AGGARWAL Unavailable Unavailable ERVIN, WAQAS AGGARWAL Unavailable Unavailable ERVIN, WAQAS AGGARWAL Unavailable Unavailable ERVIN, WAQAS AGGARWAL Unavailable Unavailable ERVIN, WAQAS AGGARWAL Unavailable Unavailable ERVIN, WAQAS AGGARWAL Unavailable Unavailable ERVIN, WAQAS AGGARWAL Unavailable Unavailable ERVIN, WAQAS AGGARWAL Unavailable Unavailable ERVIN, WAQAS AGGARWAL Unavailable Unavailable ERVIN, WAQAS AGGARWAL Unavailable Unavailable ERVIN, WAQAS AGGARWAL Unavailable Unavailable ERVIN, WAQAS AGGARWAL Unavailable Unavailable ERVIN, WAQAS AGGARWAL Unavailable Unavailable ERVIN, WAQAS AGGARWAL Unavailable Unavailable ERVIN, WAQAS AGGARWAL Unavailable Unavailable ERVIN, WAQAS AGGARWAL Unavailable Unavailable ERVIN, WAQAS AGGARWAL Unavailable Unavailable ERVIN, WAQAS AGGARWAL Unavailable Unavailable ERVIN, WAQAS AGGARWAL Unavailable Unavailable ERVIN, WAQAS AGGARWAL Unavailable Unavailable ERVIN, WAQAS AGGARWAL Unavailable Unavailable PETROFF, JOSR PA Unavailable Unavailable PETROFF, JOSR PA Unavailable Unavailable PETROFF, JOSR PA Unavailable Unavailable PETROFF, JOSR PA Unavailable Unavailable PETROFF, JOSR PA Unavailable Unavailable PETROFF, JOSR PA Unavailable Unavailable PETROFF, JOSR PA Unavailable Unavailable PETROFF, JOSR PA Unavailable Unavailable Schoeneman, [place] DO Unavailable Unavailable Schoeneman, Emma DO Unavailable Unavailable Schoeneman, [place] DO Unavailable Unavailable Schoeneman, [place] DO Unavailable Unavailable Schoeneman, Emma DO Unavailable Unavailable Schoeneman, [place] DO Unavailable Unavailable Schoeneman, Emma DO Unavailable Unavailable Schoeneman, [place] DO Unavailable Unavailable Schoeneman, [place] DO Unavailable Unavailable Schoeneman, Emma DO Unavailable Unavailable Schoeneman, [place] DO Unavailable Unavailable Schoeneman, [place] DO Unavailable Unavailable Schoeneman, Emma DO Unavailable Unavailable Schoeneman, [place] DO Unavailable Unavailable Schoeneman, [place] DO Unavailable Unavailable Schoeneman, [place] DO Unavailable Unavailable Schoeneman, Emma DO Unavailable Unavailable Schoeneman, Emma DO Unavailable Unavailable Schoeneman, [place] DO Unavailable Unavailable Schoeneman, Emma DO Unavailable Unavailable Schoeneman, Emma DO Unavailable Unavailable Schoeneman, Emma DO Unavailable Unavailable Schoeneman, [place] DO Unavailable Unavailable Schoeneman, Emma DO Unavailable Unavailable Schoeneman, [place] DO Unavailable Unavailable Schoeneman, Emma DO Unavailable Unavailable Schoeneman, [place] DO Unavailable Unavailable Schoeneman, [place] DO Unavailable Unavailable Schoeneman, [place] DO Unavailable Unavailable Schoeneman, Emma DO Unavailable Unavailable Schoeneman, [place] DO Unavailable Unavailable Schoeneman, Emma DO Unavailable Unavailable Schoeneman, Emma DO Unavailable Unavailable Schoeneman, [place] DO Unavailable Unavailable Schoeneman, [place] DO Unavailable Unavailable Schoeneman, Emma DO Unavailable Unavailable Schoeneman, Emma DO Unavailable Unavailable Schoeneman, [place] DO Unavailable Unavailable Schoeneman, Emma DO Unavailable Unavailable Schoeneman, Emma DO Unavailable Unavailable Schoeneman, Emma DO Unavailable Unavailable ILANA PAYAN MD Unavailable Unavailable ILANA PAYAN MD Unavailable Unavailable ILANA PAYAN MD Unavailable Unavailable ILANA PAYAN MD Unavailable Unavailable ILANA PAYAN MD Unavailable Unavailable ILANA PAYAN MD Unavailable Unavailable SCHUYLERILANA Heath MD Unavailable Unavailable SCHUYLERILANA Heath MD Unavailable Unavailable SCHUYLERILANA Heath MD Unavailable Unavailable EUNICE, L DEVON PA Unavailable Unavailable EUNICE, L DEVON PA Unavailable Unavailable EUNICE, L DEVON PA Unavailable Unavailable EUNICE, L DEVON PA Unavailable Unavailable EUNICE, L DEVON PA Unavailable Unavailable EUNICE, L DEVON PA Unavailable Unavailable EUNICE, Jan OSORIO PA Unavailable Unavailable EUNICE, L DEVON PA Unavailable Unavailable EUNICE, L DEVON PA Unavailable Unavailable EUNICE, L DEVON PA Unavailable Unavailable EUNICE, L DEVON PA Unavailable Unavailable EUNICE, L DEVON PA Unavailable Unavailable EUNICE, L DEVON PA Unavailable Unavailable EUNICE, L DEVON PA Unavailable Unavailable EUNICE, L DEVON PA Unavailable Unavailable EUNICE, L DEVON PA Unavailable Unavailable EUNICE, L DEVON PA Unavailable Unavailable EUNICE, L DEVON PA Unavailable Unavailable EUNICE, L DEVON PA Unavailable Unavailable EUNICE, L DEVON PA Unavailable Unavailable EUNICE, L DEVON PA Unavailable Unavailable EUNICE, L DEVON PA Unavailable Unavailable YAYO, A PERLA DO Unavailable Unavailable YAYO, A PERLA DO Unavailable Unavailable YAYO, A PERLA DO Unavailable Unavailable YAYO, A PERLA DO Unavailable Unavailable YAYO, A PERLA DO Unavailable Unavailable YAYO, A PERLA DO Unavailable Unavailable YAYO, A PERLA DO Unavailable Unavailable YAYO, A PERLA DO Unavailable Unavailable YAYO, A PERLA DO Unavailable Unavailable YAYO, A PERLA DO Unavailable Unavailable YAYO, A PERLA DO Unavailable Unavailable YAYO, A PERLA DO Unavailable Unavailable YAYO, A PERLA DO Unavailable Unavailable YAYO, A PERLA DO Unavailable Unavailable YAYO, A PERLA DO Unavailable Unavailable YAYO, A PERLA DO Unavailable Unavailable YAYO, A PERLA DO Unavailable Unavailable YAYO, A PERLA DO Unavailable Unavailable YAYO, A PERLA DO Unavailable Unavailable YAYO, A PERLA DO Unavailable Unavailable YAYO, A PERLA DO Unavailable Unavailable YAYO, A PERLA DO Unavailable Unavailable JERRY, JEREMY ELMIRA PA Unavailable Unavailable JERRY, JEREMY ELMIRA PA Unavailable Unavailable JERRY, JEREMY ELMIRA PA Unavailable Unavailable JERRY, JEREMY ELMIRA PA Unavailable Unavailable JERRY, JEREMY ELMIRA PA Unavailable Unavailable JERRY, JEREMY ELMIRA PA Unavailable Unavailable JERRY, JEREMY ELMIRA PA Unavailable Unavailable JERRY, JEREMY ELMIRA PA Unavailable Unavailable JERRY, JEREMY ELMIRA PA Unavailable Unavailable JERRY, JEREMY ELMIRA PA Unavailable Unavailable JERRY, JEREMY ELMIRA PA Unavailable Unavailable JERRY, JEREMY ELMIRA PA Unavailable Unavailable JERRY, JEREMY ELMIRA PA Unavailable Unavailable JERRY, JEREMY ELMIRA PA Unavailable Unavailable JERRY, JEREMY ELMIRA PA Unavailable Unavailable JERRY, JEREMY ELMIRA PA Unavailable Unavailable JERRY, JEREMY ELMIRA PA Unavailable Unavailable JERRY, JEREMY ELMIRA PA Unavailable Unavailable JERRY, JEREMY ELMIRA PA Unavailable Unavailable JERRY, JEREMY ELMIRA PA Unavailable Unavailable JERRY, JEREMY ELMIRA PA Unavailable Unavailable JERRY, JEREMY ELMIRA PA Unavailable Unavailable Re-disclosure Warning The records that you are about to access may contain information from federally-assisted alcohol or drug abuse programs. If such information is present, then the following federally mandated warning applies: This information has been disclosed to you from records protected by federal confidentiality rules (42 CFR part 2). The federal rules prohibit you from making any further disclosure of this information unless further disclosure is expressly permitted by the written consent of the person to whom it pertains or as otherwise permitted by 42 CFR part 2. A general authorization for the release of medical or other information is NOT sufficient for this purpose. The Federal rules restrict any use of the information to criminally investigate or prosecute any alcohol or drug abuse patient.The records that you are about to access may contain highly sensitive health information, the redisclosure of which is protected by Article 27-F of the [facility] Public Health law. If you continue you may have access to information: Regarding HIV / AIDS; Provided by facilities licensed or operated by the [facility] Office of Mental Health; or Provided by the [facility] Office for People With Developmental Disabilities. If such information is present, then the following [facility] mandated warning applies: This information has been disclosed to you from confidential records which are protected by state law. State law prohibits you from making any further disclosure of this information without the specific written consent of the person to whom it pertains, or as otherwise permitted by law. Any unauthorized further disclosure in violation of state law may result in a fine or shelter sentence or both. A general authorization for the release of medical or other information is NOT sufficient authorization for further disc losure. Allergies and Adverse Reactions Type Description Substance Reaction Status Data Source(s ) Allergy to substance No Known Allergies No known allergies (situation ) [facility] (Gabe Natarajan MD [facility]) Encounters Encounter Providers Location Date Indications Data Source(s ) Outpatient [address] [facility] [place] [id number] 02/21/2021 12:00:00 AM EDT eCW1 ([facility]) Outpatient Attender: Thomas Collier MDReferrer: Thomas combs MD EMERGENCY [facility] 02/14/2021 10:34:00 AM EDT - 02/14/2021 10:34:00 AM EDT [facility] (PT/INR TV) Telephone Encounter Visit [address] [place] [address] 02/14/2021 12:00:00 AM EDT eCW1 (Critical access hospital) Outpatient Attender: Emma Luong: Thomas Collier MD EMERGENCY ROOM-LABOTHPROV 01/31/2021 09:24:00 AM EDT - 01/31/2021 09:24:00 AM [facility] Outpatient [address] [facility] [place] [address] 01/31/2021 12:00:00 AM EDT eCW1 ([facility]) Outpatient Attender: Thomas Negro: Thomas combs MD EMERGENCY ROOM-LABOTHPROV 01/16/2021 09:17:00 AM EDT - 01/16/2021 09:17:00 AM [facility] (PT/INR TV) Telephone Encounter Visit [address] [place] [address] 01/16/2021 12:00:00 AM EDT eCW1 (Critical access hospital) Outpatient [address] [facility] [place] [address] 12/27/2020 12:00:00 AM EDT eCW1 ([facility]) Outpatient Attender: Thomas Negro: Thomas combs MD EMERGENCY ROOM-LABOTHPROV 12/19/2020 09:42:00 AM EDT - 12/19/2020 09:42:00 AM [facility] (PT/INR TV) Telephone Encounter Visit [address] [place] [address] 12/19/2020 12:00:00 AM EDT eCW1 (Critical access hospital) Outpatient Attender: Thomas Negro: Thomas combs MD EMERGENCY ROOM-LABOTHPROV 12/05/2020 09:17:00 AM EDT - 12/05/2020 09:17:00 AM [facility] (PAPERWORK) PAPERWORK (For Provider Blocking) [address] [place] [address] 12/05/2020 12:00:00 AM EDT eCW1 (Critical access hospital) Outpatient Attender: WAQAS MUELLER MD 12/04/2020 09:58:00 AM [facility] Outpatient Attender: WAQAS MUELLER MD [email or web address] 07:39:02 AM EDT - 12/04/2020 02:12:20 PM EDT [facility] Outpatient [email or web address] 11/23/2020 09:29:04 AM EDT [facility] Unknown [address] [facility] [place] [address] 11/22/2020 12:00:00 AM EDT eCW1 ([facility]) Outpatient Attender: Thomas Silvaer: Thomas combs MD EMERGENCY ROOM-LABOTHPROV 11/21/2020 09:40:00 AM EDT - 11/21/2020 09:40:00 AM [facility] (PT/INR TV) Telephone Encounter Visit [address] [place] [address] 11/21/2020 12:00:00 AM EDT eCW1 (Critical access hospital) Unknown [address] [facility] [place] [address] 11/21/2020 12:00:00 AM EDT eCW1 ([facility]) Outpatient Attender: Thomas Negro: Thomas combs MD EMERGENCY ROOM-LABOTHPROV 11/07/2020 09:25:00 AM EDT - 11/07/2020 09:25:00 AM [facility] (PT/INR TV) Telephone Encounter Visit [address] [place] [address] 11/07/2020 12:00:00 AM EDT eCW1 (Critical access hospital) Outpatient Attender: PERLA LIM DO 10/29/2020 08:30 :00 AM [facility] Outpatient Attender: Thomas Negro: Thomas combs MD EMERGENCY ROOM-LABOTHPROV 10/24/2020 09:31:00 AM EDT - 10/24/2020 09:31:00 AM [facility] Preadmit Attender: PERLA LIM DO 10/08/2020 09:00 :00 AM [facility] Preadmit Attender: Tanisha HARDY 10/05/2020 12:49:0 0 PM [facility] [place]patient [address] [facility] [address] 10/02/2020 12:00:00 AM EDT eCW1 ([facility]) [place] [address] [facility] [address] 10/02/2020 12:00:00 AM EDT eCW1 ([facility]) Outpatient [address] [facility] [address] 09/26/2020 12:00:00 AM EDT eCW1 ([facility]) Outpatient Attender: Thomas ROWLANDeferrer: Thomas combs [facility] 08/29/2020 09:38:00 AM EDT - 08/29/2020 09:38:00 AM [facility] (PT/INR TV) Telephone Encounter Visit [address] [place] [address] 08/29/2020 12:00:00 AM EDT eCW1 (Critical access hospital) [place] [address] [facility] [address] 08/24/2020 12:00:00 AM EDT eCW1 ([facility]) <td ID="encounterTypeDescriptionID0">NEW PATIENT WITH REFERRAL</td><td>Perla Lim DO</td><td>Gabe Porras MD [facility]</td><td>08/23/2020</td><td>12:39PM</td><td>1:48PM</td><td><content ID="encounterDiagnosisID0-0">Dry Eye Syndrome</content>, <content ID="encounterDiagnosisID0-1">Cataract Senile Nuclear</content>, <content ID="encounterDiagnosisID0-2">Vitreous Disorders Degeneration</content></td>Outpatient Attender: PERLA Encarnacion MD [facility] 08/23/2020 12:39:00 PM EDT - 08/23/2020 01:48:00 PM ED T Vitreous Disorders DegenerationCataract Senile NuclearDry Eye Syndrome [facility] (Gabe Natarajan MD [facility]) Vitreous Disorders Degeneration Cataract Senile Nuclear Dry Eye Syndrome Outpatient [email or web address] 08/21/2020 10:10:45 AM EDT [facility] Outpatient Attender: Thomas Austinerrer: Thomas combs MD EMERGENCY ROOM-LABOTHPROV 08/01/2020 09:13:00 AM EDT - 08/01/2020 09:13:00 AM EDT [facility] (PT/INR TV) Telephone Encounter Visit [address] [place] [address] 08/01/2020 12:00:00 AM EDT eCW1 (Critical access hospital) Unknown [address] [facility], [facility] [place] [address] 07/13/2020 12:00:00 AM EST eCW1 ([facility]) Outpatient Attender: Thomas Austinerrer: Thomas combs MD EMERGENCY ROOM-LABOTHPROV 07/04/2020 09:24:00 AM EST - 07/04/2020 09:24:00 AM [facility] (PT/INR TV) Telephone Encounter Visit [address] [place] [address] 07/04/2020 12:00:00 AM EST eCW1 (Critical access hospital) Outpatient Attender: WAQAS MUELLER MD 06/19/2020 10:07:00 AM [facility] Outpatient Attender: WAQAS MUELLER MD [email or web address] 06/19/2020 08:03:06 AM EST [facility] Outpatient Attender: Thomas Austinerrer: Thomas combs MD EMERGENCY ROOM-LABOTHPROV 06/06/2020 10:01:00 AM EST - 06/06/2020 10:01:00 AM [facility] (PT/INR TV) Telephone Encounter Visit [address] [place] [address] 06/06/2020 12:00:00 AM EST eCW1 (Critical access hospital) Unknown [address] [facility], [facility] [place] [address] 06/06/2020 12:00:00 AM EST eCW1 ([facility]) Outpatient Attender: Thomas Collier MDReferrer: Thomas combs MD EMERGENCY ROOM-LABOTHPROV 05/23/2020 09:48:00 AM EST - 05/23/2020 09:48:00 AM [facility] (PT/INR TV) Telephone Encounter Visit [address] [place] [address] 05/23/2020 12:00:00 AM EST eCW1 (Critical access hospital) Outpatient [email or web address] 05/10/2020 12:00:00 AM EST [facility] Outpatient [address] [facility] [place] [address] 05/09/2020 12:00:00 AM EST eCW1 ([facility]) Outpatient Attender: Thomas Collier MDReferrer: Thomas combs MD EMERGENCY ROOM-LABOTHPROV 04/25/2020 09:40:00 AM EST - 04/25/2020 09:40:00 AM [facility] (PT/INR TV) Telephone Encounter Visit [address] [place] [address] 04/25/2020 12:00:00 AM EST eCW1 (Critical access hospital) Outpatient Attender: WAQAS MUELLER MD [email or web address] 04/03/2020 08:00:58 AM [facility] Outpatient Attender: Thomas Collier MDReferrer: Thomas combs MD EMERGENCY ROOM-LABOTHPROV 03/14/2020 09:11:00 AM EST - 03/14/2020 09:11:00 AM [facility] (PT/INR TV) Telephone Encounter Visit [address] [place] [address] 03/14/2020 12:00:00 AM EST eCW1 (Critical access hospital) Outpatient Attender: Thomas Austinerrkailee: Thomas combs MD EMERGENCY ROOM-LABOTHPROV 02/15/2020 01:00:00 PM EDT - 02/15/2020 01:00:00 PM [facility] (PT/INR TV) Telephone Encounter Visit [address] [place] [address] 02/15/2020 12:00:00 AM EDT eCW1 (Critical access hospital) [place] [address] [facility] [address] 02/08/2020 12:00:00 AM EDT eCW1 ([facility]) Outpatient [id number] 02/04/2020 02:18:16 PM EDT [facility] Unknown [address] [address] 02/03/2020 12:00:00 AM EDT eCW1 ([facility]) Outpatient SJP.FRANK-SJP.FRANK 02/02/2020 12:00:00 AM EDT [facility] Outpatient Attender: Thomas Austinerrer: Thomas combs MD EMERGENCY ROOM-LABOTHPROV 02/01/2020 09:13:00 AM EDT - 02/01/2020 09:13:00 AM [facility] Outpatient Attender: Thomas ROWLANDeferrer: Thomas combs MD EMERGENCY ROOM-LABOTHPROV 01/18/2020 09:07:00 AM EDT - 01/18/2020 09:07:00 AM [facility] Outpatient Attender: Thomas ROWLANDeferrer: Thomas combs MD EMERGENCY ROOM-LABOTHPROV 01/04/2020 04:42:00 PM EDT - 01/04/2020 04:42:00 PM [facility] Outpatient Attender: Thomas ROWLANDeferrer: Thomas combs MD EMERGENCY ROOM-LABOTHPROV 01/04/2020 09:16:00 AM EDT - 01/04/2020 09:16:00 AM [facility] Outpatient Attender: Thomas ROWLANDeferrer: Thomas combs MD EMERGENCY ROOM-LABOTHPROV 12/07/2019 12:13:00 PM EDT - 12/07/2019 12:13:00 PM [facility] Outpatient Attender: WAQAS MUELLER MD 11/22/2019 10:55:00 AM [facility] Outpatient Attender: Thomas Collier MDReferrer: Thomas combs MD EMERGENCY ROOM-LABOTHPROV 11/09/2019 12:46:00 PM EDT - 11/09/2019 12:46:00 PM [facility] Outpatient Attender: Thomas Collier MDReferrer: Thomas combs MD EMERGENCY ROOM-LABOTHPROV 10/21/2019 07:20:00 AM EDT - 10/21/2019 07:20:00 AM [facility] Outpatient Attender: Thomas Collier MDReferrer: Thomas combs MD EMERGENCY ROOM-LABOTHPROV 09/28/2019 12:38:00 PM EDT - 09/28/2019 12:38:00 PM [facility] Outpatient Attender: Thomas Collier MDReferrer: Thomas combs MD EMERGENCY ROOM-LABOTHPROV 08/31/2019 08:31:00 AM EDT - 08/31/2019 08:31:00 AM [facility] Outpatient Attender: Thomas ROWLANDeferrer: Thomas combs MD EMERGENCY ROOM-LABOTHPROV 07/06/2019 08:10:00 AM [facility] - 07/06/2019 08:10:00 AM [facility] Outpatient Attender: WAQAS MUELLER MD 05/24/2019 10:34:00 AM [facility] Emergency Attender: DEVON BRADFORD EMERGENCY ROOM-ER 10:05:00 AM EDT - 08/01/2018 03:00:00 PM [facility] Outpatient Attender: Thomas Collier MD 12/11/2017 01:00:00 PM [facility] Emergency Attender: JOSR BRADFORD 2017 06:34:00 PM [facility] - 07/10/2017 11:40:00 AM [facility] Emergency Attender: ELMIRA BRADFORD EMERGENCY ROOM-ER 09/28/2016 05:12:00 PM EDT - 09/28/2016 07:32:00 PM [facility] Emergency Attender: ILANA PAYAN MDAdmitter: ILANA PAYAN MD EMERGENCY ROOM-ER 05/16/2014 05:41:00 PM [facility] - 05/17/2014 04:22:00 PM [facility] Immunizations Vaccine Date Status Description Data Source(s) influenza, recombinant, quadrIvalent,injectable, prese rvative free 02/21/2021 09:38:00 AM EDT completed eCW1 ([facility]) pneumococcal polysaccharide PPV23 12/27/2020 10:32:00 AM EDT comple jamaal eCW1 ([facility]) pneumococcal polysaccharide PPV23 12/27/2020 10:32:00 AM EDT comple jamaal eCW1 ([facility]) pneumococcal polysaccharide PPV23 12/27/2020 10:32:00 AM EDT comple jamaal eCW1 ([facility]) pneumococcal polysaccharide PPV23 12/27/2020 10:32:00 AM EDT comple jamaal eCW1 ([facility]) pneumococcal polysaccharide PPV23 12/27/2020 10:32:00 AM EDT comple jamaal eCW1 ([facility]) COVID-19 dose #1 given elsewhere Unspecified 08/09/2020 09:5 5:00 AM EDT completed eCW1 ([facility]) COVID-19 dose #1 given elsewhere Unspecified 08/09/2020 09:5 5:00 AM EDT completed eCW1 ([facility]) COVID-19 dose #1 given elsewhere Unspecified 08/09/2020 09:5 5:00 AM EDT completed eCW1 ([facility]) COVID-19 dose #1 given elsewhere Unspecified 08/09/2020 09:5 5:00 AM EDT completed eCW1 ([facility]) COVID-19 dose #1 given elsewhere Unspecified 08/09/2020 09:5 5:00 AM EDT completed eCW1 ([facility]) COVID-19 dose #1 given elsewhere Unspecified 08/09/2020 09:5 5:00 AM EDT completed eCW1 ([facility]) COVID-19 dose #1 given elsewhere Unspecified 08/09/2020 09:5 5:00 AM EDT completed eCW1 ([facility]) COVID-19 dose #1 given elsewhere Unspecified 08/09/2020 09:5 5:00 AM EDT completed eCW1 ([facility]) COVID-19 dose #1 given elsewhere Unspecified 08/09/2020 09:5 5:00 AM EDT completed eCW1 ([facility]) BEBETO/Ethan COVID-19 (given elsewhere) SA RS-COV-2 vaccine, vector non- replicating, recombinant spike protein-Ad26, preservative free, 0.5 mL 08/09/2020 09:45:00 AM EDT completed eCW1 ([facility]) JJ/Ethan COVID-19 (given elsewhere) SA RS-COV-2 vaccine, vector non- replicating, recombinant spike protein-Ad26, preservative free, 0.5 mL 08/09/2020 09:45:00 AM EDT completed eCW1 ([facility]) J&J/Ethan COVID- 19 (given elsewhere) SARS-COV-2 vaccine, vector non- replicating, recombinant spike protein-Ad26, preservative free, 0.5 mL 08/09/2020 09:45:00 AM EDT completed eCW1 ([facility]) J&J/Ethan COVID- 19 (given elsewhere) SARS-COV-2 vaccine, vector non- replicating, recombinant spike protein-Ad26, preservative free, 0.5 mL 08/09/2020 09:45:00 AM EDT completed eCW1 ([facility]) J&J/Ethan COVID- 19 (given elsewhere) SARS-COV-2 vaccine, vector non- replicating, recombinant spike protein-Ad26, preservative free, 0.5 mL 08/09/2020 09:45:00 AM EDT completed eCW1 ([facility] hospital) COVID-19 VACCINE Ethan 08/09/2020 12:00:00 AM EDT completed [facility] Vaccine Series Complete: YESThis Data wa s Submitted to [facility] Via [facility]. influenza, recombinant, quadrIvalent,injectable, prese rvative free 02/08/2020 11:08:00 AM EDT completed eCW1 ([facility]) influenza, recombinant, quadrIvalent,injectable, prese rvative free 02/08/2020 11:08:00 AM EDT completed eCW1 ([facility]) influenza, recombinant, quadrIvalent,injectable, prese rvative free 02/08/2020 11:08:00 AM EDT completed eCW1 ([facility]) influenza, recombinant, quadrIvalent,injectable, prese rvative free 02/08/2020 11:08:00 AM EDT completed eCW1 ([facility]) influenza, recombinant, quadrIvalent,injectable, prese rvative free 02/08/2020 11:08:00 AM EDT completed eCW1 ([facility]) influenza, recombinant, quadrIvalent,injectable, prese rvative free 02/08/2020 11:08:00 AM EDT completed eCW1 ([facility]) influenza, recombinant, quadrIvalent,injectable, prese rvative free 02/08/2020 11:08:00 AM EDT completed eCW1 ([facility]) influenza, recombinant, quadrIvalent,injectable, prese rvative free 02/08/2020 11:08:00 AM EDT completed eCW1 ([facility]) influenza, recombinant, quadrIvalent,injectable, prese rvative free 02/08/2020 11:08:00 AM EDT completed eCW1 ([facility]) influenza, recombinant, quadrIvalent,injectable, prese rvative free 02/08/2020 11:08:00 AM EDT completed eCW1 ([facility]) influenza, recombinant, quadrIvalent,injectable, prese rvative free 02/08/2020 11:08:00 AM EDT completed eCW1 ([facility]) influenza, recombinant, quadrIvalent,injectable, prese rvative free 02/08/2020 11:08:00 AM EDT completed eCW1 ([facility]) influenza, recombinant, quadrIvalent,injectable, prese rvative free 02/08/2020 11:08:00 AM EDT completed eCW1 ([facility]) influenza, recombinant, quadrIvalent,injectable, prese rvative free 02/08/2020 11:08:00 AM EDT completed eCW1 ([facility]) influenza, recombinant, quadrIvalent,injectable, prese rvative free 02/08/2020 11:08:00 AM EDT completed eCW1 ([facility]) influenza, recombinant, quadrIvalent,injectable, prese rvative free 02/08/2020 11:08:00 AM EDT completed eCW1 ([facility]) influenza, recombinant, quadrIvalent,injectable, prese rvative free 02/08/2020 11:08:00 AM EDT completed eCW1 ([facility]) influenza, recombinant, quadrIvalent,injectable, prese rvative free 02/08/2020 11:08:00 AM EDT completed eCW1 ([facility]) influenza, recombinant, quadrIvalent,injectable, prese rvative free 02/08/2020 11:08:00 AM EDT completed eCW1 ([facility]) influenza, recombinant, quadrIvalent,injectable, prese rvative free 02/08/2020 11:08:00 AM EDT completed eCW1 ([facility]) influenza, recombinant, quadrIvalent,injectable, prese rvative free 02/08/2020 11:08:00 AM EDT completed eCW1 ([facility]) influenza, recombinant, quadrIvalent,injectable, prese rvative free 02/08/2020 11:08:00 AM EDT completed eCW1 ([facility]) influenza, recombinant, quadrIvalent,injectable, prese rvative free 02/08/2020 11:08:00 AM EDT completed eCW1 ([facility]) influenza, recombinant, quadrIvalent,injectable, prese rvative free 02/08/2020 11:08:00 AM EDT completed eCW1 ([facility]) influenza, recombinant, quadrIvalent,injectable, prese rvative free 02/08/2020 11:08:00 AM EDT completed eCW1 ([facility]) influenza, recombinant, quadrIvalent,injectable, prese rvative free 02/08/2020 11:08:00 AM EDT completed eCW1 ([facility]) influenza, recombinant, quadrIvalent,injectable, prese rvative free 02/08/2020 11:08:00 AM EDT completed eCW1 ([facility]) Medications Medication Brand Name Start Date Product Form Dose Route Admi nistrative Instructions Pharmacy Instructions Status Indications Reaction Description Data Source(s) 10 mg 02/25/2021 12:00:00 AM EDT tablet 90 TAKE ONE TABLET BY MOUTH EVERY EVENING TAKE ONE TABLET BY MOUTH EVERY EVENING SOLD: 02/26/2021 [facility] Polymyxin B 05827 UNT/ML / Trimethoprim 1 MG/ML Ophthalmic Solution 10,000 unit- 1 mg/mL POLYMYXIN B SULF/TRIMETHOPRIM 02/08/2021 12:00:00 AM EDT drops 1 0 INSTILL 1 DROP INTO THE RIGHT EYE FOUR TIMES A DAY STARTING 3 DAYS PRIOR TO SURGERY INSTILL 1 DROP INTO THE RIGHT EYE FOUR T IMES A DAY STARTING 3 DAYS PRIOR TO SURGERY SOLD: 02/09/2021 [facility] 1 % 02/08/2021 12:00:00 AM EDT drops,suspension 10 INSTILL 1 DROP INTO THE RIGHT EYE FOUR TIMES A DAY STARTING AFTER SURGERY INSTILL 1 DROP INTO THE RIGHT EYE FOUR TIMES A DAY STARTING AFTER SURGERY SOLD: 02/09/2021 [facility] 0.5 % 02/07/2021 12:00:00 AM EDT drops 5 INSTILL 1 DROP INTO THE RIGHT EYE FOUR TIMES A DAY STARTING 3 DAYS PRIOR TO SURGERY INSTILL 1 DROP INTO THE RIGHT EYE FOUR TIMES A DAY STARTING 3 DAYS PRIOR TO SURGERY SOLD: 02/09/2021 [facility] 2 mg 12/27/2020 12:00:00 AM EDT tablet 360 TAKE FOUR TABLETS BY MOUTH EVERY DAY OR DIRECTED TAKE FOUR TABLETS BY MOUTH EVERY DAY OR DIRECTED SO LD: 01/03/2021 [facility] 40 mg 12/27/2020 12:00:00 AM EDT tablet 270 TAKE ONE TABLET BY MOUTH TWO TIMES A DAY - MAY TAKE EXTRA TABLET IF WEIGHT IS UP 4 POUNDS IN THE MORNING TAKE ONE TABLET BY MOUTH TWO TIMES A DAY - MAY TAKE EXTRA TABLET IF WEIGHT IS UP 4 POUNDS IN THE MORNING SOLD: 01/03/2021 [facility] 1,250 mcg (50,000 unit) 12/07/2020 12:00:00 AM EDT capsule 12 TAKE 1 CAPSULE BY MOUTH ONCE A WEEK TAKE 1 CAPSULE BY MOUTH ONCE A WEEK SOLD: 12/07/2020 [facility] 10 mg 11/23/2020 12:00:00 AM EDT tablet 90 TAKE ONE TABLET BY MOUTH EVERY EVENING TAKE ONE TABLET BY MOUTH EVERY EVENING SOLD: 11/24/2020 [facility] 100 mg 11/23/2020 12:00:00 AM EDT tablet 180 TAKE TWO TABLETS BY MOUTH ONCE DAILY TAKE TWO TABLETS BY MOUTH ONCE DAILY SOLD: 11/24/2020 [facility] 100 mg 11/23/2020 12:00:00 AM EDT tablet 180 TAKE TWO TABLETS BY MOUTH ONCE DAILY TAKE TWO TABLETS BY MOUTH ONCE DAILY SOLD: 02/22/2021 [facility] 40 mg 10/29/2020 12:00:00 AM EDT tablet 180 TAKE ONE TABLET BY MOUTH TWO TIMES A DAY MAY TAKE AN EXTRA DOSE IF WEIGHT IS UP 4 LBS IN THE MORNING TAKE ONE TABLET BY MOUTH TWO TIMES A DAY MAY TAKE AN EXTRA DOSE IF WEIGHT IS UP 4 LBS IN THE MORNING SOLD: 11/02/2020 [facility] glimepiride 2 MG Oral Tablet GLIMEPIRIDE 10/15/2020 12:00:00 AM EDT ta blet 90 TAKE ONE TABLET BY MOUTH ONCE DAILY TAKE ONE TABLET BY MOUTH ONCE DAILY SOLD: 01/11/2021 [facility] glimepiride 2 MG Oral Tablet GLIMEPIRIDE 10/15/2020 12:00:00 AM EDT ta blet 90 TAKE ONE TABLET BY MOUTH ONCE DAILY TAKE ONE TABLET BY MOUTH ONCE DAILY SOLD: 10/18/2020 [facility] 2 mg 10/09/2020 12:00:00 AM EDT tablet 360 TAKE FOUR TABLETS BY MOUTH ONCE DAILY TAKE FOUR TABLETS BY MOUTH ONCE DAILY SOLD: 10/12/2020 [facility] Flonase Allergy Relief 50 MCG/ACT Flonase Allergy Relief 50 MCG/ACT 10/02/2020 12:00:00 AM EDT 1.0 {spray_in_each_nostril} acti ve Flonase Allergy Relief 50 MCG/ACT eCW1 ([facility]) Flonase Allergy Relief 50 MCG/ACT Flonase Allergy Relief 50 MCG/ACT 10/02/2020 12:00:00 AM EDT 1.0 {spray_in_each_nostril} acti ve Flonase Allergy Relief 50 MCG/ACT eCW1 ([facility]) Flonase Allergy Relief 50 MCG/ACT Flonase Allergy Relief 50 MCG/ACT 10/02/2020 12:00:00 AM EDT 1.0 {spray_in_each_nostril} acti ve Flonase Allergy Relief 50 MCG/ACT eCW1 ([facility]) Flonase Allergy Relief 50 MCG/ACT Flonase Allergy Relief 50 MCG/ACT 10/02/2020 12:00:00 AM EDT 1.0 {spray_in_each_nostril} acti ve Flonase Allergy Relief 50 MCG/ACT eCW1 ([facility]) Flonase Allergy Relief 50 MCG/ACT Flonase Allergy Relief 50 MCG/ACT 10/02/2020 12:00:00 AM EDT 1.0 {spray_in_each_nostril} acti ve Flonase Allergy Relief 50 MCG/ACT eCW1 ([facility]) Flonase Allergy Relief 50 MCG/ACT Flonase Allergy Relief 50 MCG/ACT 10/02/2020 12:00:00 AM EDT 1.0 {spray_in_each_nostril} acti ve Flonase Allergy Relief 50 MCG/ACT eCW1 ([facility]) Flonase Allergy Relief 50 MCG/ACT Flonase Allergy Relief 50 MCG/ACT 10/02/2020 12:00:00 AM EDT 1.0 {spray_in_each_nostril} acti ve Flonase Allergy Relief 50 MCG/ACT eCW1 ([facility]) Flonase Allergy Relief 50 MCG/ACT Flonase Allergy Relief 50 MCG/ACT 10/02/2020 12:00:00 AM EDT 1.0 {spray_in_each_nostril} acti ve Flonase Allergy Relief 50 MCG/ACT eCW1 ([facility]) Flonase Allergy Relief 50 MCG/ACT Flonase Allergy Relief 50 MCG/ACT 10/02/2020 12:00:00 AM EDT 1.0 {spray_in_each_nostril} acti ve Flonase Allergy Relief 50 MCG/ACT eCW1 ([facility]) Flonase Allergy Relief 50 MCG/ACT Flonase Allergy Relief 50 MCG/ACT 10/02/2020 12:00:00 AM EDT 1.0 {spray_in_each_nostril} acti ve Flonase Allergy Relief 50 MCG/ACT eCW1 ([facility]) Flonase Allergy Relief 50 MCG/ACT Flonase Allergy Relief 50 MCG/ACT 10/02/2020 12:00:00 AM EDT 1.0 {spray_in_each_nostril} acti ve Flonase Allergy Relief 50 MCG/ACT eCW1 ([facility]) Flonase Allergy Relief 50 MCG/ACT Flonase Allergy Relief 50 MCG/ACT 10/02/2020 12:00:00 AM EDT 1.0 {spray_in_each_nostril} acti ve Flonase Allergy Relief 50 MCG/ACT eCW1 ([facility]) Flonase Allergy Relief 50 MCG/ACT Flonase Allergy Relief 50 MCG/ACT 10/02/2020 12:00:00 AM EDT 1.0 {spray_in_each_nostril} acti ve Flonase Allergy Relief 50 MCG/ACT eCW1 ([facility]) 1,250 mcg (50,000 unit) 09/14/2020 12:00:00 AM EDT capsule 12 TAKE 1 CAPSULE BY MOUTH ONCE WEEKLY TAKE 1 CAPSULE BY MOUTH ONCE WEEKLY SOLD: 09/20/2020 [facility] 100 mg 08/24/2020 12:00:00 AM EDT tablet 180 TAKE 2 TABLETS BY MOUTH ONCE A DAY TAKE 2 TABLETS BY MOUTH ONCE A DAY SOLD: 08/25/2020 [facility] 10 mg 08/24/2020 12:00:00 AM EDT tablet 90 TAKE 1 TABLET BY MOUTH ONCE DAILY EVERY EVENING TAKE 1 TABLET BY MOUTH ONCE DAILY EVERY EVENING SOLD: 2020 [facility] Vitamin D Oral Tablet Vitamin D Oral Tablet 08/23/2020 12:00:00 AM EDT active Vitamin D MEHNAZ (Gabe Natarajan MD [facility]) Simvastatin Oral Tablet Simvastatin Oral Tablet 08/23/2020 12:00:00 A M EDT 1 active Simvastatin MEHNAZ (Gabe Natarajan MD [facility]) Furosemide 40 MG Oral Tablet Furosemide 40 MG Oral Tablet 12:00:00 AM EDT 1 active furosemide 40 MG Oral Tablet MEHNAZ (Gabe Natarajan MD [facility]) Warfarin Sodium 1 MG Oral Tablet [Coumadin] Coumadin 1 MG Oral Tablet Coumadin 1 MG Oral Tablet 08/23/2020 12:00:00 AM EDT ac tive warfarin sodium 1 MG Oral Tablet [Coumadin] UNION (Gabe Natarajan MD [facility]) 1,250 mcg (50,000 unit) 06/20/2020 12:00:00 AM EST capsule 12 TAKE ONE CAPSULE BY MOUTH WEEKLY TAKE ONE CAPSULE BY MOUTH WEEKLY SOLD: 06/21/2020 [facility] 10 mg 05/18/2020 12:00:00 AM EST tablet 90 TAKE 1 TABLET BY MOUTH ONCE DAILY IN THE EVENING TAKE 1 TABLET BY MOUTH ONCE DAILY IN THE EVENING SOLD: 05/21/2020 [facility] 100 mg 04/28/2020 12:00:00 AM EST tablet 180 TAKE TWO TABLETS BY MOUTH EVERY DAY TAKE TWO TABLETS BY MOUTH EVERY DAY SOLD: 05/02/2020 [facility] 10 mg 02/17/2020 12:00:00 AM EDT tablet 90 TAKE ONE TABLET BY MOUTH EVERY DAY IN THE EVENING TAKE ONE TABLET BY MOUTH EVERY DAY IN THE EVENING SOLD : 02/23/2020 [facility] 2 mg 02/05/2020 12:00:00 AM EDT tablet 360 TAKE FOUR TABLETS BY MOUTH EVERY DAY OR DIRECTED TAKE FOUR TABLETS BY MOUTH EVERY DAY OR DIRECTED SO LD: 02/06/2020 [facility] 2 mg 02/05/2020 12:00:00 AM EDT tablet 360 TAKE FOUR TABLETS BY MOUTH EVERY DAY OR DIRECTED TAKE FOUR TABLETS BY MOUTH EVERY DAY OR DIRECTED SO LD: 05/07/2020 [facility] 2 mg 02/05/2020 12:00:00 AM EDT tablet 360 TAKE FOUR TABLETS BY MOUTH EVERY DAY OR DIRECTED TAKE FOUR TABLETS BY MOUTH EVERY DAY OR DIRECTED SO LD: 08/04/2020 [facility] 1,250 mcg (50,000 unit) 11/14/2019 12:00:00 AM EDT capsule 12 TAKE ONE TABLET BY MOUTH ONCE WEEKLY TAKE ONE TABLET BY MOUTH ONCE WEEKLY SOLD: 02/16/2020 [facility] 100 mg 11/02/2019 12:00:00 AM EDT tablet 180 TAKE TWO TABLETS BY MOUTH EVERY DAY TAKE TWO TABLETS BY MOUTH EVERY DAY SOLD: 02/06/2020 [facility] 40 mg 10/25/2019 12:00:00 AM EDT tablet 180 TAKE 2 TABLETS BY MOUTH ONCE A DAY TAKE 2 TABLETS BY MOUTH ONCE A DAY SOLD: 08/02/2020 [facility] glimepiride 2 MG Oral Tablet GLIMEPIRIDE 10/25/2019 12:00:00 AM EDT ta blet 90 TAKE 1 TABLET BY MOUTH ONCE A DAY TAKE 1 TABLET BY MOUTH ONCE A DAY SOLD: 04/19/2020 [facility] 40 mg 10/25/2019 12:00:00 AM EDT tablet 180 TAKE 2 TABLETS BY MOUTH ONCE A DAY TAKE 2 TABLETS BY MOUTH ONCE A DAY SOLD: 01/26/2020 [facility] 40 mg 10/25/2019 12:00:00 AM EDT tablet 180 TAKE 2 TABLETS BY MOUTH ONCE A DAY TAKE 2 TABLETS BY MOUTH ONCE A DAY SOLD: 05/02/2020 [facility] glimepiride 2 MG Oral Tablet GLIMEPIRIDE 10/25/2019 12:00:00 AM EDT ta blet 90 TAKE 1 TABLET BY MOUTH ONCE A DAY TAKE 1 TABLET BY MOUTH ONCE A DAY SOLD: 07/19/2020 [facility] glimepiride 2 MG Oral Tablet GLIMEPIRIDE 10/25/2019 12:00:00 AM EDT ta blet 90 TAKE 1 TABLET BY MOUTH ONCE A DAY TAKE 1 TABLET BY MOUTH ONCE A DAY SOLD: 01/20/2020 [facility] Insurance Providers Payer name Policy type / Coverage type Policy ID Covered alliance party ID Covered alliance party's relationship to brandon Policy Brandon Plan Information [employer] [id number] S [id number] [place] [id number] S [id number] [employer] [id number] S [id number] [place] [id number] S [id number] [place] [id number] S [id number] [employer] [id number] S [id number] MEDICARE [id number] Jessica [id number] [place] [id number] S [id number] [employer] [id number] S [id number] MEDICARE [id number] Jessica [id number] A [employer] [id number] S [id number] [place] [id number] S [id number] MEDICAID [id number] S [id number] [facility] [id number] S [id number] [facility] [id number] S [id number] [employer] E[employer]IRE [id number] S [id number] MEDICAID [id number] S [id number] MEDICAID [id number] S [id number] [facility] [id number] S [id number] MEDICAID [id number] Jessica [id number] EXCELLUS BCBS [id number] Jessica YLS [id number] EXCE[employer]US BCBS [id number] Jessica YLS [id number] [facility] [id number] S [id number] [employer]BS EMPIRE [id number] S [id number] [employer] E[employer]IRE [id number] S [id number] [facility] [id number] S [id number] [employer] E[employer]IRE [id number] S [id number] [employer] E[employer] [id number] S [id number] [employer] EMPIRE [id number] S [id number] MEDICAID [id number] S [id number] [facility] [id number] S [id number] MEDICAID [id number] S [id number] [employer] E[employer] [id number] S [id number] [employer] E[employer] [id number] S [id number] ANSI-Commercial [id number] ANSI-Medicare Part B [id number] ANSI-Medicare Part B [id number] ANSI-Commercial [id number] ANSI-Commercial [id number] ANSI-Medicare Part B [id number] ANSI-Commercial [id number] ANSI-Medicare Part B [id number] ANSI-Commercial [id number] ANSI-Medicare Part B [id number] ANSI-Commercial [id number] ANSI-Medicare Part B [id number] ANSI-Commercial [id number] ANSI-Medicare Part B [id number] ANSI-Medicare Part B [id number] ANSI-Commercial [id number] ANSI-Medicare Part B [id number] ANSI-Commercial [id number]-8uq6-ig47-2fn1y1th77v2 r22f0h52-4j9n-9qq1-tz32-8dj8l7xy95a6 [facility] [id number] S [id number] A MEDICARE [id number] S [id number] A ANSI-Commercial d3vh86w9-r223-26g1-630n-77307tu87n46 b9hr92u8-g905-67g2-316q-84575jw82b98 ANSI-Medicare Part B mf571usb-5612-94v1-7q49-89h85cqf13y6 gs228mbv-9361-32s4-0k13-07n98nfn13r7 ANSI-Commercial 5npj960n-200o-1g3f-2m26-n06u8th550vi 6mlf002r-987i-6d5y-8e07-s40h6sm039qd ANSI-Medicare Part B iq96vlr3-jd2k-6d6q-325z-0312n4ss757i is23cko0-yg8l-4j6q-792g-1227q7yy810y ANSI-Commercial n7kbr4i8-svi1-2389-5705-918w77r00qk6 j8fom5t0-iwh7-9931-1852-860n91r35wf7 ANSI-Medicare Part B 74m0x429-4g46-704p-22u0-5nnq65y929o1 04y2k759-1w34-039r-89f2-6vyb12l070e5 ANSI-Medicare Part B [id number]-wtq9-7ih3-f95t-822hww232d54 c6290244-ehc4-2vg0-k45j-307nfg815c87 ANSI-Commercial 25w3mwkz-6275-39ta-on8v-i7ayj33m7915 73k6kzyi-8428-72co-zf1m-p2uwg44x9690 ANSI-Medicare Part B 3519g5v4-9790-204k-0m88-rxp09kpd42ih 1804n2g8-0327-924z-6s38-blm95ttd63ee ANSI-Commercial 7p23b463-5i24-055v-93r0-g3q90y5021y1 5h46h399-7v40-179r-70d6-e1u38b0807n9 ANSI-Commercial 34622432-7748-4v3h-65wu-m4938d929h02 06220723-5729-9o2b-94uj-r2967l782h54 ANSI-Medicare Part B [id number]692 258f5949-1nb2-0mu1-3lg5-8a51t5l57080 ANSI-Medicare Part B [id number]-wxw7-3ir4-v644-77e9706935j9 82793335-uwf8-6oi4-m349-38v9378015o6 ANSI-Commercial w09q391l-2g9l-3ufl-jh90-8iiu409umtj8 e31b178l-0c6r-6bqn-lb83-8gjp779vaim8 ANSI-Medicare Part B [id number]-0738-5840-b8o1v41z6486 c3m43289-9f3s-3528-0435-f7c4c47l8658 ANSI-Commercial 17ank36h-74ii-34oj-8x69-cr0ymsl931o8 22bsc95b-76ix-00og-5c85-bf5mjok195q3 ANSI-Commercial 6j475715-g58p-9034-d95d-4dya586gn578 6p592245-y18e-3284-f01k-0uoz220er280 ANSI-Medicare Part B [id number] ANSI-Medicare Part B [id number] ANSI-Commercial [id number] ANSI-Medicare Part B [id number] ANSI-Commercial [id number] ANSI-Commercial [id number] ANSI-Medicare Part B [id number] ANSI-Medicare Part B [id number] ANSI-Commercial [id number] ANSI-Medicare Part B [id number] ANSI-Commercial [id number] ANSI-Commercial [id number] ANSI-Medicare Part B [id number] ANSI-Medicare Part B [id number] ANSI-Commercial [id number] ANSI-Medicare Part B [id number] ANSI-Commercial [id number] ANSI-Commercial [id number] ANSI-Medicare Part B [id number] ANSI-Commercial [id number] ANSI-Medicare Part B [id number] MEDICARE [id number] SP [id number] A MEDICAID [id number] SP [id number] MEDICAID [id number] SP [id number] MEDICARE [id number] SP [id number] [id number] A [facility] [id number] SP [id number] BCBS EMPIRE AMBAR DIV [id number] SP [id number] [facility] [id number] S [id number] [facility] [id number] SP [id number] BCBS EMPIRE [id number] S [id number] [facility] MEDICAID [id number] SP [id number] C BCBS EMPIRE AMBAR DIV [id number] SP [id number] [facility] [id number] S [id number] [place]ICARE [place] [id number] S [id number] MEDICAID [id number] S [id number] BCBS EMPIRE AMBAR DIV [id number] BCBS EMPIRE AMBAR DIV [id number] [facility] Employees ([place] - [facility] Other 0 [id number] Self 0 Medicare Part B [facility] Other 0 [id number] Self 0 BCBS EMPIRE AMBAR DIV UNAVAILABLE UNAVAILABLE MCRB [id number] S [id number] [id number] MEDICARE [id number] S [id number] [id number] MEDICAID [id number] S [id number] BLUE CROSS [id number] S [id number] ANSI-Commercial [id number] ANSI-Medicare Part B [id number] ANSI-Medicare Part B [id number] ANSI-Commercial [id number] ANSI-Medicare Part B [id number] ANSI-Commercial [id number] ANSI-Commercial [id number] ANSI-Medicare Part B [id number] ANSI-Medicare Part B [id number] ANSI-Commercial [id number] ANSI-Medicare Part B [id number] ANSI-Commercial [id number] Problems, Conditions, and Diagnoses Code Display Name Description Problem Type Effective Dates Data Source(s) Z79.01 care home (current) use of anticoagulant s INTERMEDIATE (CURRENT) USE OF ANTICOAGULANT Diagnosis 02/14/2021 10:34:00 AM [facility] M10.9 Gout, unspecified GOUT, UNSPECIFIED Diagnosis 01/16/2021 09:17:00 AM [facility] E11.9 Type 2 diabetes mellitus without complic ations TYPE 2 DIABETES MELLITUS WITHOUT COMPLIC Diagnosis 01/16/2021 09:17:00 AM [facility] I48.19 OTHER PERSISTENT ATRIAL FIBRILLATION OTH ER PERSISTENT ATRIAL FIBRILLATION Diagnosis 01/16/2021 09:17:00 AM [facility] I48.11 LONGSTANDING PERSISTENT ATRIAL FIBRILLAT ION LONGSTANDING PERSISTENT ATRIAL FIBRILLATION Diagnosis 12/19/2020 09:42:00 AM [facility] E66.9 Obesity, unspecified OBESITY, UNSPECIFIED Diagnosis 12/04/2020 09:58:00 AM [facility] N18.9 Chronic kidney disease, unspecified CHRONIC KIDN EY DISEASE, UNSPECIFIED Diagnosis 12/04/2020 09:58:00 AM [facility] Z95.0 Presence of cardiac pacemaker PRESENCE OF CARDIAC PACE MAKER Diagnosis 12/04/2020 09:58:00 AM [facility] I10 Essential (primary) hypertension ESSENTIAL (PRIMARY) H YPERTENSION Diagnosis 12/04/2020 09:58:00 AM [facility] M19.90 Unspecified osteoarthritis, unspecified site UNSPECIFIED OSTEOARTHRITIS, UNSPECIFIED SITE Diagnosis 12/04/2020 09:58:00 AM [facility] E78.5 Hyperlipidemia, unspecified HYPERLIPIDEMIA, UNSPECIFIE D Diagnosis 12/04/2020 09:58:00 AM [facility] I42.9 Cardiomyopathy, unspecified CARDIOMYOPATHY, UNSPECIFIE D Diagnosis 12/04/2020 09:58:00 AM [facility] I48.91 Unspecified atrial fibrillation UNSPECIFIED ATRI AL FIBRILLATION Diagnosis 12/04/2020 09:58:00 AM [facility] E66.9 Obesity, unspecified Obesity, unspecified Diagnosis 12/04/2020 07:39:02 AM [facility] N18.9 Chronic kidney disease, unspecified Chronic kidn ey disease, unspecified Diagnosis 12/04/2020 07:39:02 AM EDT [facility] Z95.0 Presence of cardiac pacemaker Presence of cardiac pace maker Diagnosis 12/04/2020 07:39:02 AM EDT [facility] I10 Essential (primary) hypertension Essential (primary) h ypertension Diagnosis 12/04/2020 07:39:02 AM EDT [facility] M19.90 Unspecified osteoarthritis, unspecified site Unspecified osteoarthritis, unspecified Diagnosis 12/04/2020 07:39:02 AM EDT [facility] E78.5 Hyperlipidemia, unspecified Hyperlipidemia, unspecifie d Diagnosis 12/04/2020 07:39:02 AM EDT [facility] I42.9 Cardiomyopathy, unspecified Cardiomyopathy, unspecifie d Diagnosis 12/04/2020 07:39:02 AM EDT [facility] I48.91 Unspecified atrial fibrillation Unspecified atri al fibrillation Diagnosis 12/04/2020 07:39:02 AM EDT [facility] Z01.818 Encounter for other preprocedural examin ation ENCOUNTER FOR OTHER PREPROCEDURAL EXAMIN Diagnosis 10/05/2020 12:00:00 AM [facility] I[facility].20 CHRONIC ATRIAL FIBRILLATION, UNSPECIFIED CHRONIC ATRIAL FIBRILLATION, UNSPECIFIED Diagnosis 05/23/2020 09:48:00 AM EST [facility] Z87.19 Personal history of other diseases of th e digestive system PERSONAL HISTORY OF OTHER DISEASES OF Diagnosis 05/23/2020 09:48:00 AM [facility] I48.19 [id number] Atrial fibrillation, persistent Problem 12/27/2020 12:00:00 AM EDT eCW1 ([facility]) Z79.01 Long-term current use of anticoagulant L genesis term current use of anticoagulant therapy Problem 12/05/2020 12:00:00 AM EDT eCW1 ([facility]) 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 systolic (congestive) and diastolic (congestive) heart failure Problem 09/26/2020 12:00:00 AM EDT eCW1 ([facility]) 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 Vitreous Disorders Deg eneration Problem 08/23/2020 12:00:00 AM EDT [facility] (Gabe Natarajan MD [facility]) 375.15 Dry Eye Syndrome Dry Eye Syndrome Problem 08/23/2020 12 :00:00 AM EDT [facility] (Gabe Natarajan MD [facility]) 366.16 Cataract Senile Nuclear Cataract Senile Nuclear Proble m 08/23/2020 12:00:00 AM EDT [facility] (Gabe Natarajan MD [facility]) I48.2 Chronic atrial fibrillation Chronic atrial fibrillatio n Problem 05/23/2020 12:00:00 AM EST eCW1 ([facility]) Surgeries/Procedures Procedure Description Date Indications Data Source(s) Imm: Flublok Quadrivalent 18 years & older 0.5mL IM Influenz a 02/21/2021 12:00:00 AM EDT eCW1 ([facility]) PNEUMOCOCCAL POLYSAC VACCINE 23-V 2 />YR SUBQ/IM 12/27 12:00:00 AM EDT eCW1 ([facility]) Surgical / procedural history Pacemaker Surgical / pr ocedural history Pacemaker 08/23/2020 12:00:00 AM EDT [facility] (El Natarajan MD [facility]) Medical Eye Exam Medical Eye Exam 08/23/2020 12:00:00 AM EDT [facility] (Gabe Natarajan MD [facility]) Immunization: Flublok Quadrivalent (18 years & older) 0.5mL IM (Influenza) 02/08/2020 12:00:00 AM EDT eCW1 ([facility]) Results ID Date Data Source PT-INR Fingerstick 02/21/2021 12:00:00 AM EDT eCW1 ([facility] Name Value Range Interpretation Code Description Data Dasia rce(s) Supporting Document(s) yes Verified Patient's Name and DO B eCW1 ([facility]) 2.3 INR eCW1 ([facility]) 8mg Mon and Fri Current Dose 1 eCW1 ([facility]) 7mg ROW Current Dose 2 eCW1 ([facility]) 2mg tabs Tab Strength eCW1 ([facility]) no Recent Bleeding eCW1 ([facility]) AFIB Indication for Anticoagulation eCW1 ([facility]) no change in dose per New Do se 1 eCW1 ([facility]) Education Given (Date / Initia ls) eCW1 ([facility]) 2-3 Therapeutic Range eCW1 ([facility]) yes Internal QC Acceptable (Y/N) e CW1 ([facility]) New Dose 2 eCW1 ([facility]) Weekly Total eCW1 ([facility]) daughter aware - eCW1 ([facility]) 4 weeks 2021 Next PT-INR eCW1 ([facility]) ID Date Data Source [id number] 02/14/2021 11:04:00 AM EDT [facility] [phone] Name Value Range Interpretation Code Description Data Dasia rce(s) Supporting Document(s) PROTHROMBIN TIME (PATIENT) 15.9 SECONDS 9.1-11.6 [facility] INR 1.54 0.87-1.06 H [facility] ID Date Data Source PT-INR 02/14/2021 12:00:00 AM EDT eCW1 ([facility]) Name Value Range Interpretation Code Description Data Dasia rce(s) Supporting Document(s) PROTHROMBIN TIME/INR eCW1 ([facility]) Comments eCW1 ([facility]) Dosage Change eCW1 ([facility]) Current Dose eCW1 ([facility]) Protime eCW1 ([facility]) INR eCW1 ([facility]) Done @ [facility] Verified Patient's Name and eCW1 ([facility]) 7mg ROW Current Dose 2 eCW1 ([facility]) 8mg Mon and Fri Current Dose 1 eCW1 ([facility]) INR in Platelet poor plasma by Coagulation assay 1.54 INR eCW1 ([facility]) Ecchymosis or Bleeding Noted e CW1 ([facility]) 2-3 INR Range eCW1 ([facility]) Tab Strength eCW1 ([facility]) AFIB Indication for Anticoagulation eCW1 ([facility]) Education Given (Date / Initia ls) eCW1 ([facility]) Hold for Day(s) eCW1 ([facility]) 15.9 Prothrombin Time/INR eCW1 ([facility]) Prothrombin time (PT) 1.54 Protime eCW1 ([facility]) New Dose 2 eCW1 ([facility]) per no change recheck 1 week New Dose 1 eCW1 ([facility]) Comments for PT-INR eCW1 ([facility]) 1 week daughter aware Next PT Check eCW1 ([facility]) ID Date Data Source [id number] 01/31/2021 11:59:00 AM EDT [facility] Name Value Range Interpretation Code Description Data Dasia rce(s) Supporting Document(s) PROTHROMBIN TIME (PATIENT) 23.7 SECONDS 9.1-11.6 H [facility] INR 2.30 0.87-1.06 H [facility] ID Date Data Source [id number] 01/16/2021 02:07:00 PM EDT [facility] Name Value Range Interpretation Code Description Data Dasia rce(s) Supporting Document(s) PROTHROMBIN TIME (PATIENT) 31.3 SECONDS 9.1-11.6 H [facility] INR 3.04 0.87-1.06 H [facility] ID Date Data Source [id number] 01/16/2021 10:12:00 AM EDT [facility] Name Value Range Interpretation Code Description Data Dasia rce(s) Supporting Document(s) URIC ACID 5.3 mg/dL 3.5-7.2 [facility] ID Date Data Source [id number] 01/16/2021 10:12:00 AM EDT [facility] Name Value Range Interpretation Code Description Data Dasia rce(s) Supporting Document(s) CHOLESTEROL 167 mg/dL 0-200 [facility] TRIGLYCERIDES 78 mg/dL 0-150 [facility] LDL CHOLESTEROL 104 mg/dL 0-100 [facility] HDL CHOLESTEROL 47 mg/dL 40-60 [facility] CHOL/HDL RATIO 3.6 0.0-5.0 [facility] ID Date Data Source [id number] 01/16/2021 10:12:[address] [facility] Name Value Range Interpretation Code Description Data Dasia rce(s) Supporting Document(s) GLUCOSE 100 mg/dL 74-106 [facility] BLOOD UREA NITROGEN 32 mg/dL 7-18 H [facility] CREATININE 1.20 mg/dL 0.7-1.3 [facility] SODIUM 144 mmol/L 136-145 [facility] POTASSIUM 4.3 mmol/L 3.5-5.1 [facility] CHLORIDE 102 mmol/L 98-107 [facility] CO2 32 mmol/L 21-32 [facility] CALCIUM 8.8 mg/dL 8.5-10.1 [facility] ANION GAP 10.0 mmol/L 5-12 [facility] GLOMERULAR FILTRATION RATE 58 mL/min [facility] GFR IS CALCULATED IN mL/min/1.73m2 KAYLYN L FUNCTION: >90MILDLY DECREASED: 60-89MILDY TO MODERATELY DECREASED: 45-59 MODERATELY TO SEVERELY DECREASED: 30-44SEVERELY DECREASED: 15-29RENAL FAILURE: <15 AST 20 U/L 15-37 [facility] ALT 35 U/L 12-78 [facility] ALKALINE PHOSPHATASE 55 U/L 46-116 [facility] TOTAL BILIRUBIN 0.5 mg/dL 0.2-1.0 [facility] TOTAL PROTEIN 8.1 g/dl 6.4-8.2 [facility] ALBUMIN 3.6 gm/dL 3.4-5.0 [facility] ID Date Data Source [id number] 01/16/2021 09:44:[address] [facility] Name Value Range Interpretation Code Description Data Dasia rce(s) Supporting Document(s) HGBA1C 5.7 % 3.8-5.6 H [facility] Diabetic > or = to 6.5%Prediabetes 5.7-6 .4%Normal <5.7 ESTIMATED AVERAGE GLUCOSE 116.9 mg/dL [facility] ID Date Data Source [id number] 01/16/2021 09:30:00 AM [facility] Name Value Range Interpretation Code Description Data Dasia rce(s) Supporting Document(s) WHITE BLOOD COUNT 8.5 K/mm3 4.0-10.0 [facility] al RED BLOOD COUNT 4.29 M/mm3 4.50-6.[address] [facility] HEMOGLOBIN 13.0 gm/dL 14.0-18.0 [facility] HEMATOCRIT 39.4 % 42.0-54.0 [facility] MEAN CELL VOLUME 91.8 fl 80-96 [facility] MEAN CORPUSCULAR HEMOGLOBIN 30.3 pg 27.0-31.0 [facility] MEAN CORPUSCULAR HGB CONC 33.0 g/dl 32.0-36.0 [facility] RED CELL DISTRIBUTION WIDTH 14.5 % 10.0-14.5 [facility] PLATELET COUNT 211 K/mm3 172-450 [facility] ID Date Data Source [id number] 12/19/2020 10:10:00 AM [facility] Name Value Range Interpretation Code Description Data Dasia rce(s) Supporting Document(s) PROTHROMBIN TIME (PATIENT) 25.9 SECONDS 9.1-11.6 H [facility] INR 2.51 0.87-1.06 [facility] ID Date Data Source [id number] 12/05/2020 10:08:00 AM [facility] Name Value Range Interpretation Code Description Data Dasia rce(s) Supporting Document(s) PROTHROMBIN TIME (PATIENT) 24.3 SECONDS 9.1-11.6 H [facility] INR 2.36 0.87-1.06 [facility] ID Date Data Source [id number] 11/21/2020 10:23:00 AM [facility] Name Value Range Interpretation Code Description Data Dasia rce(s) Supporting Document(s) PROTHROMBIN TIME (PATIENT) 18.4 SECONDS 9.1-11.6 H [facility] INR 1.78 0.87-1.06 [facility] ID Date Data Source [id number] 11/07/2020 09:50:00 AM [facility] Name Value Range Interpretation Code Description Data Dasia rce(s) Supporting Document(s) PROTHROMBIN TIME (PATIENT) 22.8 SECONDS 9.1-11.6 [facility] INR 2.21 0.87-1.06 [facility] ID Date Data Source [id number] 10/24/2020 09:59:00 AM EDT [facility] Name Value Range Interpretation Code Description Data Dasia rce(s) Supporting Document(s) PROTHROMBIN TIME (PATIENT) 33.8 SECONDS 9.1-11.6 [facility] INR 3.29 0.87-1.06 H [facility] ID Date Data Source HOLGER CHEST 2 VIEW 10/02/2020 12:00:00 AM EDT eCW1 ([facility]) Name Value Range Interpretation Code Description Data Dasia rce(s) Supporting Document(s) HOLGER CHEST 2 VIEW eCW1 ([facility]) ID Date Data Source [id number] 08/29/2020 10:11:00 AM EDT [facility] Name Value Range Interpretation Code Description Data Dasia rce(s) Supporting Document(s) PROTHROMBIN TIME (PATIENT) 21.0 SECONDS 9.1-11.6 H [facility] INR 2.03 0.87-1.06 [facility] ID Date Data Source [id number] 08/01/2020 09:55:00 AM EDT [facility] Name Value Range Interpretation Code Description Data Dasia rce(s) Supporting Document(s) PROTHROMBIN TIME (PATIENT) 20.0 SECONDS 9.1-11.6 [facility] INR 1.93 0.87-1.06 [facility] ID Date Data Source [id number] 07/04/2020 09:58:00 AM EST [facility] Name Value Range Interpretation Code Description Data Dasia rce(s) Supporting Document(s) PROTHROMBIN TIME (PATIENT) 24.8 SECONDS 9.1-11.6 [facility] INR 2.40 0.87-1.06 [facility] ID Date Data Source [id number] 06/06/2020 10:54:00 AM EST [facility] Name Value Range Interpretation Code Description Data Dasia rce(s) Supporting Document(s) PROTHROMBIN TIME (PATIENT) 23.8 SECONDS 9.1-11.6 [facility] INR 2.31 0.87-1.06 [facility] ID Date Data Source [id number] 05/23/2020 11:08:00 AM [facility] FAX [phone] Name Value Range Interpretation Code Description Data Dasia rce(s) Supporting Document(s) IRON 95 ug/dL 65-175 [facility] ID Date Data Source [id number] 05/23/2020 11:08:00 AM [facility] FAX [phone] Name Value Range Interpretation Code Description Data Dasia rce(s) Supporting Document(s) GLUCOSE 105 mg/dL 74-106 [facility] BLOOD UREA NITROGEN 34 mg/dL 7-18 H [facility] CREATININE 1.38 mg/dL 0.7-1.3 H [facility] SODIUM 142 mmol/L 136-145 [facility] POTASSIUM 3.8 mmol/L 3.5-5.1 [facility] CHLORIDE 101 mmol/L 98-107 [facility] CO2 33 mmol/L 21-32 H [facility] CALCIUM 9.3 mg/dL 8.5-10.1 [facility] ANION GAP 8.0 mmol/L 5-12 [facility] GLOMERULAR FILTRATION RATE 50 mL/min [facility] GFR IS CALCULATED IN mL/min/1.73m2 KAYLYN L FUNCTION: >90MILDLY DECREASED: 60-89MILDY TO MODERATELY DECREASED: 45-59 MODERATELY TO SEVERELY DECREASED: 30-44SEVERELY DECREASED: 15-29RENAL FAILURE: <15 AST 22 U/L 15-37 [facility] ALT 27 U/L 12-78 [facility] ALKALINE PHOSPHATASE 48 U/L 46-116 [facility] pital TOTAL BILIRUBIN 0.6 mg/dL 0.2-1.0 [facility] TOTAL PROTEIN 8.1 g/dl 6.4-8.2 [facility] ALBUMIN 3.7 gm/dL 3.4-5.0 [facility] ID Date Data Source [id number] 05/23/2020 10:23:00 AM [facility] FAX [phone] Name Value Range Interpretation Code Description Data Dasia rce(s) Supporting Document(s) PROTHROMBIN TIME (PATIENT) 27.9 SECONDS 9.1-11.6 H [facility] INR 2.71 0.87-1.06 H [facility] ID Date Data Source [id number] 05/23/2020 10:02:00 AM [facility] FAX [phone] Name Value Range Interpretation Code Description Data Dasia rce(s) Supporting Document(s) WHITE BLOOD COUNT 7.8 K/mm3 4.0-10.0 [facility] RED BLOOD COUNT 4.22 M/mm3 4.50-6.[address] [facility] HEMOGLOBIN 12.7 gm/dL 14.0-18.0 [facility] HEMATOCRIT 38.7 % 42.0-54.0 [facility] MEAN CELL VOLUME 91.7 fl 80-96 [facility] MEAN CORPUSCULAR HEMOGLOBIN 30.1 pg 27.0-31.0 [facility] MEAN CORPUSCULAR HGB CONC 32.8 g/dl 32.0-36.0 [facility] RED CELL DISTRIBUTION WIDTH 14.3 % 10.0-14.5 [facility] PLATELET COUNT 211 K/mm3 172-450 [facility] ID Date Data Source [id number] 04/25/2020 10:09:00 AM [facility] Name Value Range Interpretation Code Description Data Dasia rce(s) Supporting Document(s) PROTHROMBIN TIME (PATIENT) 25.0 SECONDS 9.1-11.6 H [facility] INR 2.42 0.87-1.06 H [facility] ID Date Data Source [id number] 03/14/2020 09:48:00 AM [facility] FAX [phone] Name Value Range Interpretation Code Description Data Dasia rce(s) Supporting Document(s) PROTHROMBIN TIME (PATIENT) 24.1 SECONDS 9.1-11.6 H [facility] INR 2.34 0.87-1.06 H [facility] ID Date Data Source [id number] 02/15/2020 01:52:[address] [facility] Name Value Range Interpretation Code Description Data Dasia rce(s) Supporting Document(s) PROTHROMBIN TIME (PATIENT) 21.6 SECONDS 9.2-11.6 H [facility] INR 2.13 0.87-1.06 H [facility] ID Date Data Source Basic Metabolic Profile (BMP) 02/08/2020 08:01:55 AM EDT eCW 1 ([facility]) Name Value Range Interpretation Code Description Data Dasia rce(s) Supporting Document(s) 72 GLUCOSE, FASTING eCW1 ([facility] hospital) 30 BLOOD UREA NITROGEN eCW1 ([facility]) 1.28 CREATININE FOR GFR eCW1 ([facility]) 4.1 POTASSIUM SERUM eCW1 ([facility]) 57.7 GLOMERULAR FILTRATION RATE eCW 1 ([facility]) 139 SODIUM LEVEL eCW1 ([facility]) 9.1 CALCIUM LEVEL eCW1 ([facility]) 104 CHLORIDE LEVEL eCW1 ([facility]) 33 CARBON DIOXIDE LEVEL eCW1 ([facility]) ID Date Data Source URIC ACID 02/08/2020 08:01:55 AM EDT eCW1 ([facility]) Name Value Range Interpretation Code Description Data Dasia rce(s) Supporting Document(s) 5.5 URIC ACID eCW1 ([facility]ly [facility]) ID Date Data Source [id number] 02/08/2020 08:01:55 AM EDT eCW1 ([facility]) Name Value Range Interpretation Code Description Data Dasia rce(s) Supporting Document(s) Hemoglobin A1c/Hemoglobin.total in Blood 5.6 HEMOGLOBIN A1c eCW1 ([facility]) ID Date Data Source IRON (FE) 02/08/2020 08:01:55 AM EDT eCW1 ([facility]) Name Value Range Interpretation Code Description Data Dasia rce(s) Supporting Document(s) 96 IRON (FE) eCW1 ([facility]) ID Date Data Source CBC - Complete Blood Count 02/08/2020 08:01:55 AM EDT eCW1 ( [facility]) Name Value Range Interpretation Code Description Data Dasia rce(s) Supporting Document(s) 8.1 WHITE BLOOD COUNT eCW1 ([facility]) 12.3 HEMOGLOBIN eCW1 ([facility]) 4.14 RED BLOOD COUNT eCW1 ([facility]ly [facility]) 93.7 MEAN CORPUSCULAR VOLUME eCW1 ( [facility]) 38.8 HEMATOCRIT eCW1 ([facility]) 31.7 MEAN CORPUSCULAR HGB CONC eCW1 ([facility]) 29.7 MEAN CORPUSCULAR HEMOGLOBIN eC W1 ([facility]) 15.0 RED CELL DISTRIBUTION WIDTH eC W1 ([facility]) 209 PLATELET COUNT, AUTOMATED eCW1 ([facility]) ID Date Data Source [id number] 02/04/2020 02:17:17 PM EDT [facility] Name Value Range Interpretation Code Description Data Dasia rce(s) Supporting Document(s) &PDF [facility] RSRPZm7jJaYVWvHe46/AKFixGOAsq6JtKXdfZOe7VNrnOPIlI1UyiSthNNKXJNMOTN9fPn0GArOJUO9e oRX [file] ICAgICAgICAgICAgICAgICAgICAgICAgICAgICAgICAgICAgICAgICAgICAgICAgICAgICAgICAgICAg ICAgICAgICAgICAgICANCiAgICAgICAgICAgICAgIC AgICAgICAgICAgICAgICAgICAgICAgICAgICAgICAgICAgICAgICAgICAgICAgICAgICAgICAgICAgIC AgICAgICAgICAgICAgICAgICAgICAgICANCiAgICAgICAgICAgICAgICAgICAgICAgICAgICAgICAgIC AgICAgICAgICAgICAgICAgICAgICAgICAgICAgICAg ICAgICAgICAgICAgICAgICAgICAgICAgICAgICAgICAgICANCiAgICAgICAgICAgICAgICAgICAgICAg ICAgICAgICAgICAgICAgICAgICAgICAgICAgICAgICAgICAgICAgICAgICAgICAgICAgICAgICAgICAg ICAgICAgICAgICAgICAgICANCiAgICAgICAgICAgIC AgICAgICAgICAgICAgICAgICAgICAgICAgICAgICAgICAgICAgICAgICAgICAgICAgICAgICAgICAgIC AgICAgICAgICAgICAgICAgICAgICAgICAgICANCiAgICAgICAgICAgICAgICAgICAgICAgICAgICAgIC AgICAgICAgICAgICAgICAgICAgICAgICAgICAgICAg ICAgICAgICAgICAgICAgICAgICAgICAgICAgICAgICAgICAgICANCiAgICAgICAgICAgICAgICAgICAg ICAgICAgICAgICAgICAgICAgICAgICAgICAgICAgICAgICAgICAgICAgICAgICAgICAgICAgICAgICAg ICAgICAgICAgICAgICAgICAgICANCiAgICAgICAgIC AgICAgICAgICAgICAgICAgICAgICAgICAgICAgICAgICAgICAgICAgICAgICAgICAgICAgICAgICAgIC AgICAgICAgICAgICAgICAgICAgICAgICAgICAgICANCiAgICAgICAgICAgICAgICAgICAgICAgICAgIC AgICAgICAgICAgICAgICAgICAgICAgICAgICAgICAg ICAgICAgICAgICAgICAgICAgICAgICAgICAgICAgICAgICAgICAgICANCiAgICAgICAgICAgICAgICAg ICAgICAgICAgICAgICAgICAgICAgICAgICAgICAgICAgICAgICAgICAgICAgICAgICAgICAgICAgICAg ICAgICAgICAgICAgICAgICAgICAgICANCjw/eHBhY2 uxsVTpbvU6C5qnHo9FHr6SIM6ax8CyIJVqIDrscyQkDswMZjDvQYFwUkuYVej1VPuhQK1MbWVaR7MmR5 ZeYAdzSC0FHTVaAQJtwMOxLNLdWMJnZbP8SZWiDPouNJ2VxJJjGYcuVOUvOYLhZG2KMPMdC517awHxFY 0UXk7UZvUyOE6ncs9TBoAaFLLtNgxUIdn3QMqdZA4L cAUwP6WiyEEro7oVCxVjM6JLGRSlRRGzBa6XSVKcBkSfMLCrLDrwOW3iUZUfURZKmDanvgH0PG6AXF2q oqLyLF1KBxHhIc2hWi0TRuTlU2VxZ1GoDKEuVNWEZSpcUO2VLOHdGNG8EFAvIxFqPFMTGwRnH22tCP3S D5Tky70fWbW2OKYcRaDtYMhhJT63pQiztvPofUCctA lwMN5GFt2+CGzsbvSfHtiWAvlyVMDCSbJfMbUQAvSnNZItFPWxAUOjSvD6GwAnZs5NKFChIYBsNGBlCt TcACXfCYDjAPnwLUOqJPHkPmG9CQCsUOCdRC1EQdNbQCVyUrO8CSjfRDAxKIVbaj0PLFPrMLDzDWA4KE FkCROaSQZlBNiiTSCqXYZxHDmbVTSyRRIjRW2IWpVg SAQlQOByFeLfKTExMWYsos5ZRWGhNWZjKIKtLGDcXPVkMVMeALbjTJVmWBU8IXZwDLWgKWOsDG4BEfCv OWJqSZT2VMJpLKLcLHVfdm2SJMUgZWIwVGH2OMFnZHKcCBStHZnjFXOmWVN8MxlpLRZwHQSdTS3LGxDj SKQwYXP7EQzrNJLtOQAwvg7OGGQaUJIvXZbkONBoQW XnDJElOCscGHMxVHXkOPAyFLEsCELpYG0QDeJhADUzVTGiSZKcJKVbKUXhjf6CKHOoTIJgYAV1UqDkVT XtNPNxHIexTZRyWVNnSgXlONRpPOHiDZ2YUyPlFKZsUIN0NfVjWRGrBKDkba8LBLQlTZMtXdy8NyVlQR CiTFUxBSqcZNSdOXTmBNYfFGKvITSaGR8TXfVjOSQd EQp5JFOfINViDBBexj0RPWYaCLQvBGgrYbKrEBSkCQLwFInhJPAqKUCxUEa6HSXzKTRkAS4XKiGjVQGl AvO6FJQoFUZkBWNjgc7XjZQrxMuyfx7TOSkMVy0ToEmzGAM3EYexLl2blGReQXTkXQINZl4CglWqZZDs YTXUZPykYIHxOInyK7T7SCX1Jmk4ELF5BTXrTNS2P9 CrM6MoJMGbDNApTdA0NAW6DvC9WOc5MTT0ANF4MEYiPYK9OHTxWcH3U6QpL7N+PT8rVYi+Rz8Ts4Pxvv A5elMrTFjrIrxmWw4KASVVV0VAFa== ID Date Data Source [id number] 02/01/2020 10:06:[address] [facility] FAX [phone] Name Value Range Interpretation Code Description Data Dasia rce(s) Supporting Document(s) PROTHROMBIN TIME (PATIENT) 19.5 SECONDS 9.2-11.6 H [facility] INR 1.92 0.87-1.06 [facility] ID Date Data Source [id number] 01/18/2020 10:08:00 AM EDT [facility] Name Value Range Interpretation Code Description Data Dasia rce(s) Supporting Document(s) PARTIAL THROMBOPLASTIN TIME 35.4 SECONDS 21.4-30.2 [facility] ID Date Data Source [id number] 01/18/2020 10:08:[address] [facility] l Name Value Range Interpretation Code Description Data Dasia rce(s) Supporting Document(s) PROTHROMBIN TIME (PATIENT) 22.8 SECONDS 9.2-11.6 H [facility] INR 2.24 0.87-1.06 [facility] ID Date Data Source [id number] 01/04/2020 05:24:00 PM EDT [facility] [phone] Name Value Range Interpretation Code Description Data Dasia rce(s) Supporting Document(s) PROTHROMBIN TIME (PATIENT) 33.7 SECONDS 9.2-11.6 H [facility] INR 3.36 0.87-1.06 [facility] ID Date Data Source [id number] 01/04/2020 10:26:[address] [facility] l FAX [facility] Name Value Range Interpretation Code Description Data Dasia rce(s) Supporting Document(s) ESTIMATED AVERAGE GLUCOSE 116.9 mg/dL [facility] ID Date Data Source [id number] 01/04/2020 10:26:00 AM [facility] l FAX [facility] Name Value Range Interpretation Code Description Data Dasia rce(s) Supporting Document(s) HGBA1C 5.7 % 3.8-5.6 H [facility] Diabetic > or = to 6.5%Prediabetes 5.7-6 .4%Normal <5.7 ID Date Data Source [id number] 01/04/2020 10:13:00 AM [facility] l FAX [facility] Name Value Range Interpretation Code Description Data Dasia rce(s) Supporting Document(s) GLUCOSE 80 mg/dL 74-106 [facility] BLOOD UREA NITROGEN 36 mg/dL 7-18 H [facility] CREATININE 1.4 mg/dL 0.7-1.3 H [facility] SODIUM 142 mmol/L 136-145 [facility] POTASSIUM 4.7 mmol/L 3.5-5.1 [facility] CHLORIDE 103 mmol/L 98-107 [facility] CO2 34 mmol/L 21-32 H [facility] CALCIUM 9.1 mg/dL 8.5-10.1 [facility] ANION GAP 5.0 mmol/L 5-12 [facility] GLOMERULAR FILTRATION RATE 49 mL/min [facility] GFR IS CALCULATED IN mL/min/1.73m2 KAYLYN L FUNCTION: >90MILDLY DECREASED: 60-89MILDY TO MODERATELY DECREASED: 45-59 MODERATELY TO SEVERELY DECREASED: 30-44SEVERELY DECREASED: 15-29RENAL FAILURE: <15 Procedure Social History Code Duration Value Status Description Data Source(s ) Smoking 02/21/2021 12:00:00 AM EDT Former Smoker completed Former Smoker eCW1 ([facility]) Smoking 12/27/2020 12:00:00 AM EDT Former Smoker completed Former Smoker eCW1 ([facility]) Smoking 12/27/2020 12:00:00 AM EDT Former Smoker completed Former Smoker eCW1 ([facility]) Smoking 12/27/2020 12:00:00 AM EDT Former Smoker completed Former Smoker eCW1 ([facility]) Smoking 12/27/2020 12:00:00 AM EDT Former Smoker completed Former Smoker eCW1 ([facility]) Smoking 10/02/2020 12:00:00 AM EDT Former Smoker completed Former Smoker eCW1 ([facility]) Smoking 10/02/2020 12:00:00 AM EDT Former Smoker completed Former Smoker eCW1 ([facility]) Smoking 10/02/2020 12:00:00 AM EDT Former Smoker completed Former Smoker eCW1 ([facility]) Smoking 10/02/2020 12:00:00 AM EDT Former Smoker completed Former Smoker eCW1 ([facility]) Smoking 10/02/2020 12:00:00 AM EDT Former Smoker completed Former Smoker eCW1 ([facility]) Smoking 10/02/2020 12:00:00 AM EDT Former Smoker completed Former Smoker eCW1 ([facility]) Smoking 10/02/2020 12:00:00 AM EDT Former Smoker completed Former Smoker eCW1 ([facility]) Smoking 10/02/2020 12:00:00 AM EDT Former Smoker completed Former Smoker eCW1 ([facility]) Smoking 09/26/2020 12:00:00 AM EDT Former Smoker completed Former Smoker eCW1 ([facility]) Smoking 08/23/2020 01:55:52 PM EDT Ex-smoker (finding) complet ed Ex-smoker (finding) MEHNAZ (Gabe Natarajan MD [facility]) Smoking 05/09/2020 12:00:00 AM EST Former Smoker completed Former Smoker eCW1 ([facility]) Smoking 05/09/2020 12:00:00 AM EST Former Smoker completed Former Smoker eCW1 ([facility]) Smoking 05/09/2020 12:00:00 AM EST Former Smoker completed Former Smoker eCW1 ([facility]) Smoking 05/09/2020 12:00:00 AM EST Former Smoker completed Former Smoker eCW1 ([facility]) Smoking 05/09/2020 12:00:00 AM EST Former Smoker completed Former Smoker eCW1 ([facility]) Smoking 05/09/2020 12:00:00 AM EST Former Smoker completed Former Smoker eCW1 ([facility]) Smoking 05/09/2020 12:00:00 AM EST Former Smoker completed Former Smoker eCW1 ([facility]) Smoking 05/09/2020 12:00:00 AM EST Former Smoker completed Former Smoker eCW1 ([facility]) Smoking 05/09/2020 12:00:00 AM EST Former Smoker completed Former Smoker eCW1 ([facility]) Smoking 02/08/2020 12:00:00 AM EDT Former Smoker completed Former Smoker eCW1 ([facility]) Smoking 02/08/2020 12:00:00 AM EDT Former Smoker completed Former Smoker eCW1 ([facility]) Smoking 02/08/2020 12:00:00 AM EDT Former Smoker completed Former Smoker eCW1 ([facility]) Smoking 02/08/2020 12:00:00 AM EDT Former Smoker completed Former Smoker eCW1 ([facility]) Vital Signs ID Date Data Source UNK Name Value Range Interpretation Code Description Data Source(s) Body weight 227 [lb_av] 227 [lb_av] eCW1 ([facility]) Body height [in_i] [facility] Diastolic blood pressure 75 mm[Hg] 75 mm[Hg] eCW1 ([facility]) Body mass index (BMI) [Ratio] 31.66 kg/m2 31.66 kg/m2 eCW1 ([facility]) Heart rate 68 /min 68 /min eCW1 ([facility]) Respiratory rate 19 /min 19 /min eCW1 ([facility]) Body temperature 97.8 [degF] 97.8 [degF] eCW1 ( [facility]) Systolic blood pressure 114 mm[Hg] 114 mm[Hg] e CW1 ([facility]) Body weight 228.12 [lb_av] 228.12 [lb_av] eCW1 ([facility]) Body height [in_i] eCW1 ([facility] Body mass index (BMI) [Ratio] 31.81 kg/m2 31.81 kg/m2 eCW1 ([facility]) Heart rate 70 /min 70 /min eCW1 ([facility]) Respiratory rate 18 /min 18 /min eCW1 ([facility]) Body temperature 96.7 [degF] 96.7 [degF] eCW1 ( [facility]) Systolic blood pressure 102 mm[Hg] 102 mm[Hg] e CW1 ([facility]) Diastolic blood pressure 68 mm[Hg] 68 mm[Hg] eCW1 ([facility]) Body weight 228 [lb_av] 228 [lb_av] eCW1 ([facility]) Body height [in_i] eCW1 ([facility] Body mass index (BMI) [Ratio] 31.80 kg/m2 31.80 kg/m2 eCW1 ([facility]) Heart rate 62 /min 62 /min eCW1 ([facility]) Respiratory rate 18 /min 18 /min eCW1 ([facility]) Body temperature 99.0 [degF] 99.0 [degF] eCW1 ( [facility]) Systolic blood pressure 108 mm[Hg] 108 mm[Hg] e CW1 ([facility]) Diastolic blood pressure 68 mm[Hg] 68 mm[Hg] eCW1 ([facility]) Body weight 228 [lb_av] 228 [lb_av] eCW1 ([facility]) Body height [in_i] eCW1 ([facility] Body mass index (BMI) [Ratio] 31.80 kg/m2 31.80 kg/m2 eCW1 ([facility]) Heart rate 62 /min 62 /min eCW1 ([facility]) Respiratory rate 18 /min 18 /min eCW1 ([facility]) Body temperature 98.3 [degF] 98.3 [degF] eCW1 ( [facility]) Systolic blood pressure 114 mm[Hg] 114 mm[Hg] e CW1 ([facility]) Diastolic blood pressure 69 mm[Hg] 69 mm[Hg] eCW1 ([facility]) Body weight 230.8 [lb_av] 230.8 [lb_av] eCW1 ([facility]) Body height [in_i] eCW1 ([facility] Body mass index (BMI) [Ratio] 32.19 kg/m2 32.19 kg/m2 eCW1 ([facility]) Heart rate 84 /min 84 /min eCW1 ([facility]) Respiratory rate 18 /min 18 /min eCW1 ([facility]) Body temperature 98 [degF] 98 [degF] eCW1 ([facility]) Systolic blood pressure 127 mm[Hg] 127 mm[Hg] e CW1 ([facility]) Diastolic blood pressure 76 mm[Hg] 76 mm[Hg] eCW1 ([facility]) Body weight 235 [lb_av] 235 [lb_av] eCW1 ([facility]) Body height [in_i] eCW1 ([facility] Body mass index (BMI) [Ratio] 32.77 kg/m2 32.77 kg/m2 eCW1 ([facility]) Heart rate 76 /min 76 /min eCW1 ([facility]) Respiratory rate 18 /min 18 /min eCW1 ([facility]) Body temperature 98 [degF] 98 [degF] eCW1 ([facility]) Systolic blood pressure 120 mm[Hg] 120 mm[Hg] e CW1 ([facility]) Diastolic blood pressure 75 mm[Hg] 75 mm[Hg] eCW1 ([facility]) ID Date Data Source [id number] 12/21/2020 02:55:[address] [facility] l Name Value Range Interpretation Code Description Data Source(s) WEIGHT 116.53346 kilos 116.53796 [facility] HEIGHT 179.07 centimeters 179.07 centimeter [facility] WEIGHT 116.40270 kilos 116.80834 [facility] HEIGHT 179.07 centimeters 179.07 centimeter [facility] Patient Treatment Plan of Care Planned Activity Planned Date Details Description Data Source (s) Flonase Allergy Relief 50 MCG/ACT 10/02/2020 12:00:00 AM EDT eCW1 ([facility]) Flonase Allergy Relief 50 MCG/ACT 10/02/2020 12:00:00 AM EDT eCW1 ([facility]) Flonase Allergy Relief 50 MCG/ACT 10/02/2020 12:00:00 AM EDT eCW1 ([facility]) Flonase Allergy Relief 50 MCG/ACT 10/02/2020 12:00:00 AM EDT eCW1 ([facility]) Flonase Allergy Relief 50 MCG/ACT 10/02/2020 12:00:00 AM EDT eCW1 ([facility]) Flonase Allergy Relief 50 MCG/ACT 10/02/2020 12:00:00 AM EDT eCW1 ([facility]) Flonase Allergy Relief 50 MCG/ACT 10/02/2020 12:00:00 AM EDT eCW1 ([facility]) Flonase Allergy Relief 50 MCG/ACT 10/02/2020 12:00:00 AM EDT eCW1 ([facility]) Flonase Allergy Relief 50 MCG/ACT 10/02/2020 12:00:00 AM EDT eCW1 ([facility]) Flonase Allergy Relief 50 MCG/ACT 10/02/2020 12:00:00 AM EDT eCW1 ([facility]) Flonase Allergy Relief 50 MCG/ACT 10/02/2020 12:00:00 AM EDT eCW1 ([facility]) Flonase Allergy Relief 50 MCG/ACT 10/02/2020 12:00:00 AM EDT eCW1 ([facility]) Flonase Allergy Relief 50 MCG/ACT 10/02/2020 12:00:00 AM EDT eCW1 ([facility])
--- OUTSIDE RECORDS SUMMARY | 2021-02-28 07:34 | CCD ---
Author Author [facility] Organization [facility] Address Unknown Phone Unavailable Care Team Providers Care Rides Supervisor Name Role Phone Thomas Griffith Unavailable PROBLEMS Type Condition ICD9-CM Code IZS25-QT Code Onset Dates Condition S tatus W/U Status Risk SNOMED Code Notes Problem Encounter for therapeutic drug monitoring Z51.81 Active confirmed 351942413 Problem Diabetes mellitus E11.9 Active confirmed 73 387664 Problem Acute gout of right foot, unspecified cause M10.9 Active confirmed 833455154 Problem S/P cardiac pacemaker procedure Z95.0 Active confi rmed 901450309 Problem Encounter for general adult medical exam ination with abnormal findings Z00.01 Active confirmed 308930769 Problem Dementia without behavioral disturbance, unspeci fied dementia type F03.90 Active confirmed 15358011 Problem Nocturnal hypoxemia G47.34 Active confirmed 586158464 Problem Other insomnia G47.09 Active confirmed 15053 2001 Problem Diverticulosis K57.90 Active confirmed 98656 1000 Problem Atrial fibrillation, persistent I48.19 Active confi rmed 221823076 Problem History of GI bleed Z87.19 Active confirmed 710920227 Problem alf current use of anticoagulant therapy Z79 .01 Active confirmed 748731009 Problem Hyperuricemia E79.0 Active confirmed 203543 06 Problem alf (current) use of anticoagulants Z79.01 Active confirmed 757657213 Problem Longstanding persistent atrial fibrillation I48.11 Active confirmed 197494038 Problem Constipation, unspecified constipation type K59.00 Active confirmed 82443344 Problem 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 Active confirmed [id number] ALLERGIES No Known Allergies ENCOUNTERS from 1940 to 2021-01-17 Encounter Location Date Provider Diagnosis [facility] August LY [phone] [place] [address] Jan, 2021 Thomas Griffith terminal make up operator current use of anticoagulant t herapy Z79.01 [...] daily Daily for 90 day(s) Active Ergocalciferol 67168 UNIT 1 capsule Orally weekly for 90 day(s) Active PROCEDURES No Information RESULTS Component Value Reference Range PT-INR Reviewed date:01/16/2021 14:57:23 Interpretation: Performing Lab:[facility], ,[place] [address] INR 3.04 Verified Patient's Name and LAB DRAW Current Dose 1 7mg tue,thur,sat,sun Current Dose 2 8mg M,W,F Tab Strength Indication for Anticoagulation AFIB Ecchymosis or Bleeding Noted INR Range 2-3 Prothrombin Time/INR 31.3 Protime 3.04 Hold for Day(s) Education Given (Date / Initials) New Dose 1 Per 8mg Mon and New Dose 2 7mg ROW Next PT Check Cristofer aware of dose change Comments for PT-INR 2 weeks 01/30/2021 REASON FOR VISIT RIVER/INR MEDICAL (GENERAL) HISTORY Type Description Date Medical [...] Treatment Notes Treatm ent Clinical Notes Jan, alf current use of anticoagulant therapy ( ICD-10 [...] in am.(Dr. Chacon) for 90 day(s) Ergocalciferol 96377 UNIT 1 capsule Orally weekly for 90 day(s) Flonase Allergy Relief 50 MCG/ACT 1 spray in each nost ril Nasally bid for 90 day(s) Oct, Iron 325 (65 Fe) MG 1 tablet Orally every other day Multivitamins 1 tab Orally once a day Next Appt Details Provider Name:Emma Alfonso, 2021-01 07:15:00 AM, [address] , , [place], [address], Provider Name:Thomas Griffith, 2021-02-21 09 :00:00 AM, [address] , , [place], [address], Provider Name:Thomas Griffith, 2021-04-11 11 :00:00 AM, [address] , , [place], [address], Insurance Providers Payer Name Payer Address Payer Phone Insured Name Patient Relati onship to Insured Coverage Start Date Coverage End Date [facility] [address] [facility] [id number] BELIA PENA self MEDICARE Part A and B [address] [facility] [id number] BELIA PENA self
--- OUTSIDE RECORDS SUMMARY | 2021-02-28 07:34 | CCD ---
Author Author [facility] Organization [facility] Address Unknown Phone Unavailable Care Team Providers Care Salesperson Burial Needs Name Role Phone Thomas Griffith Unavailable PROBLEMS Type Condition ICD9-CM Code [id number] Code Onset Dates Condition S tatus W/U Status Risk SNOMED Code Notes Problem Encounter for therapeutic drug monitoring Z51.81 Active confirmed 823203380 Problem Diabetes mellitus E11.9 Active confirmed 73 203762 Problem Acute gout of right foot, unspecified cause M10.9 Active confirmed 845110096 Problem S/P cardiac pacemaker procedure Z95.0 Active confi rmed 779900727 Problem Dementia without behavioral disturbance, unspeci fied dementia type F03.90 Active confirmed 91584983 Problem Encounter for general adult medical exam ination with abnormal findings Z00.01 Active confirmed 717134048 Problem Nocturnal hypoxemia G47.34 Active confirmed 722909522 Problem Other insomnia G47.09 Active confirmed 68561 2001 Problem Diverticulosis K57.90 Active confirmed 69100 1000 Problem 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 Active confirmed 303519700122444 Problem History of GI bleed Z87.19 Active confirmed 333597175 Problem skilled nursing current use of anticoagulant therapy Z79 .01 Active confirmed 843383817 Problem Hyperuricemia E79.0 Active confirmed 659253 06 Problem termite control representative (current) use of anticoagulants Z79.01 Active confirmed 948930618 Problem Longstanding persistent atrial fibrillation I48.11 Active confirmed 905664011 Problem Constipation, unspecified constipation type K59.00 Active confirmed 49010013 Problem Chronic atrial fibrillation I48.2 Active confirmed 539912283 ALLERGIES No Known Allergies ENCOUNTERS from 1940 to 2020-12-06 Encounter Location Date Provider Diagnosis [facility] August LY [phone] [place] [address] Dec, Thomas Griffith Longstanding persistent atrial fibrillat ion I48.11 and skilled nursing current use of anticoagulant therapy Z79.01 IMMUNIZATIONS Vaccine Route Administration Date Status Zoster 50mcg/0.5mL Shingrix Unknown August 18, 2018 Admi nistered Zoster 50mcg/0.5mL Shingrix Unknown October 18, 2018 Admi nistered COVID-19 dose #1 given elsewhere Unspecified Unknown Aug Administered Influenza 18 yrs & older Flublok IM Intramuscular Feb 08, 2020 Administered Influenza (High Dose 65 & up) IM Intramuscular Feb 07, 2016 A dministered Influenza (High Dose 65 & up) Unknown Feb 18, 2017 Ad ministered Influenza (High Dose 65 & up) Unknown Apr 10, 2018 Ad ministered Influenza 6mo & up Fluzone IM Intramuscular May 14, 2010 Admi nistered Influenza (High Dose 65 & up) IM Intramuscular Mar 08, 2015 A dministered Pneumococcal Adult 0.5mL Pneumovax 23 Unknown Jan [...] a: former smoker former smoker quit 1 997/updated 05/09/2020 Additional Findings: Tobacco User none Additional Findings: Tobacco Non-User Current non-smoker How long has it been since you last smoked? > 10 years REASON FOR REFERRAL No Information VITAL SIGNS No information MEDICATIONS Medication SIG (Take, Route, Frequency, Duration) Notes Start Da te End Date Status Iron 325 (65 Fe) MG 1 tablet Orally every other day Active Warfarin Sodium 2 MG 4 tablet (or as directed) Orally Once a da y for 90 days Active Lancets as directed - daily for 90 days Jul, Active Glucostix - as directed In Vitro daily for 90 days Jul, Active Furosemide 40 MG 1 tablet Orally bid, with 3r d dose if weight up 4 lb in am.(Dr. Chacon) for 90 days Active Zocor 10MG TAKE 1 TABLET ONCE DAILY EVERY EVENING Orally Once a day for 90 Active Multivitamins 1 tab Orally once a day Active Ergocalciferol 04236 UNIT 1 capsule Orally weekly for 84 days Active Flonase Allergy Relief 50 MCG/ACT 1 spray in each nost ril Nasally bid for 30 day(s) Oct, Active Senokot S 8.6-50 MG 1 tablet Orally bid for 90 days Nov Active Allopurinol 100 MG 2 tablet Orally Once a day for 90 Active Glimepiride 2MG 1 tab daily for 90 days Active Benefiber - 1-3 tsp Orally Daily for 90 days Nov, Active PROCEDURES No Information RESULTS Component Value Reference Range PT-INR Reviewed date:12/05/2020 12:45:07 Interpretation: Performing Lab:[facility] [place] [address] INR 2.36 Verified Patient's Name and Current Dose 1 7mg Tue,Th,Satand sun Current Dose 2 8mg Mon,Wed,Fri Tab Strength Indication for Anticoagulation AFIB Ecchymosis or Bleeding Noted INR Range 2-3 Prothrombin Time/INR 24.3 Protime 2.36 Hold for Day(s) Education Given (Date / Initials) New Dose 1 no change per New Dose 2 Next PT Check 2 weeks 12/19/2020 Comments for PT-INR daughter aware REASON FOR VISIT [facility] PT/INR MEDICAL (GENERAL) HISTORY Type Description Date Medical History HYPERTENSION Medical History ALCOHOLISM Medical History COPD Medical History OBESITY Medical History ANEMIA Medical History ABNORMAL LIVER FUNCTION, NEG ATIVE HEPATITIS SCREEN NEGATIVE ULTRASOUND OF THE LIVER 06/12 Medical History DIABETES 2002 Medical History ELEVATED CHOLESTEROL Medical History LOW VITAMIN D Medical History ATRIAL FIBRILLATION 05/14 Medical History NO COLONOSCOPY Medical History Echo 05/19/14 showed EF of 35% Medical History pacemaker Surgical History pacemaker 09/30/2016 Surgical History UGI Bleed 10/14/2019 Hospitalization History [facility] fluid retention 07/2014 Hospitalization History UGI bleed 10/14/2019 Goals Section No Information Health Concerns No Information MEDICAL EQUIPMENT No Information MENTAL STATUS No Information FUNCTIONAL STATUS No Information ASSESSMENTS Encounter Date Diagnosis Assessment Notes Treatment Notes Treatm ent Clinical Notes Dec, Longstanding persistent atrial fibrillation (ICD -10 - I48.11) Dec, skilled nursing current use of anticoagulant therapy ( ICD-10 - Z79.01) PLAN OF TREATMENT Medication Medication Name Sig Start Date Stop Date Allopurinol 100 MG 2 tablet Orally Once a day for 90 Zocor 10MG TAKE 1 TABLET ONCE DAILY EVERY EVENING Orally Once a day for 90 Flonase Allergy Relief 50 MCG/ACT 1 spray in each nost ril Nasally bid for 30 day(s) Oct, Next Appt Details Provider Name:Thomas Griffith, 2020-12-19 07 :00:00 AM, [address] , , [place], [address], Provider Name:Thomas Griffith, 2020-12-27 09 :30:00 AM, [address], , [place], [address], Insurance Providers Payer Name Payer Address Payer Phone Insured Name Patient Relati onship to Insured Coverage Start Date Coverage End Date [facility] [address] [facility] [id number] BELIA PENA MEDICARE Part A and B [address] [facility] [address] [phone] BELIA PENA
--- OUTSIDE RECORDS SUMMARY | 2021-02-28 07:34 | CCD ---
Author Author [facility] Organization [facility] Address Unknown Phone Unavailable Care Team Providers Care Stallion Keeper Name Role Phone Thomas Griffith Unavailable PROBLEMS Type Condition ICD9-CM Code ZIS64-IJ Code Onset Dates Condition S tatus W/U Status Risk SNOMED Code Notes Problem Encounter for therapeutic drug monitoring Z51.81 Active confirmed 664115812 Problem Diabetes mellitus E11.9 Active confirmed 73 692855 Problem Acute gout of right foot, unspecified cause M10.9 Active confirmed 477605962 Problem S/P cardiac pacemaker procedure Z95.0 Active confi rmed 285837080 Problem Encounter for general adult medical exam ination with abnormal findings Z00.01 Active confirmed 613098145 Problem Dementia without behavioral disturbance, unspeci fied dementia type F03.90 Active confirmed 64040185 Problem Nocturnal hypoxemia G47.34 Active confirmed 150738771 Problem Other insomnia G47.09 Active confirmed 47507 2001 Problem Diverticulosis K57.90 Active confirmed 60081 1000 Problem Atrial fibrillation, persistent I48.19 Active confi rmed 361488182 Problem History of GI bleed Z87.19 Active confirmed 651320776 Problem care home current use of anticoagulant therapy Z79 .01 Active confirmed 082546857 Problem Hyperuricemia E79.0 Active confirmed 539014 06 Problem care home (current) use of anticoagulants Z79.01 Active confirmed 363760727 Problem Longstanding persistent atrial fibrillation I48.11 Active confirmed 850687747 Problem Constipation, unspecified constipation type K59.00 Active confirmed 85039817 Problem 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 Active confirmed 341302028176100 ALLERGIES No Known Allergies ENCOUNTERS from 1940 to 2021-01-02 Encounter Location Date Provider Diagnosis [facility] August LY [phone] [place] [address] Dec, Thomas Griffith Acute gout of right foot, unspecified ca use M10.9 ; computer terminal operator current use of anticoagulant therapy Z79.01 ; Atrial fibrillation, persistent I48.19 ; Diabetes mellitus E11.9 ; Adenomatous polyp of colon, unspecified part of colon D12.6 ; Nasal congestion R09.81 and Encounter for immunization Z23 IMMUNIZATIONS Vaccine Route Administration Date Status Pneumococcal 0.5mL Prevnar 13 IM Intramuscular Feb 07, 2016 A dministered TDAP 0.5mL (Boostrix) IM Intramuscular Dec 08, 2017 Administe red Pneumococcal Adult 0.5mL Pneumovax 23 IM Intramuscular Dec 27 021 Administered J&J/AUPEO! COVID- 19 (given elsewhere) SARS-COV-2 vaccine, vector non- replicating, recombinant spike protein-Ad26, preservative free, 0.5 mL Unknown August 09, 2020 Administered Zoster 50mcg/0.5mL Shingrix Unknown October 18, 2018 Admi nistered Influenza (High Dose 65 & up) IM Intramuscular Mar 08, 2015 A dministered Influenza (High Dose 65 & up) IM Intramuscular Feb 07, 2016 A dministered Influenza 6mo & up Fluzone IM Intramuscular May 14, 2010 Admi nistered Influenza 18 yrs & older Flublok IM Intramuscular Feb 08, 2020 Administered Zoster 50mcg/0.5mL Shingrix Unknown August 18, 2018 Admi nistered Influenza (High Dose 65 & up) Unknown Apr 10, 2018 Ad ministered Influenza (High Dose 65 & up) Unknown Feb 18, 2017 Ad ministered Pneumococcal Adult 0.5mL Pneumovax 23 Unknown Jan 10 004 Administered Influenza 6mo & up Fluzone IM Intramuscular [...] FOR REFERRAL No Information VITAL SIGNS Weight 228.12 lbs Dec, Height 71" in Dec, BMI 31.81 kg/m2 Dec, Heart Rate 70 /min Dec, Respiratory Rate 18 /min Dec, Temperature 96.7 degrees Fahrenheit Dec, Oximetry 94RA Dec, Blood pressure systolic 102 mm Hg Dec, Blood pressure diastolic 68 mm Hg Dec, MEDICATIONS Medication SIG (Take, Route, Frequency, Duration) [...] daily Daily for 90 day(s) Active Ergocalciferol 36946 UNIT 1 capsule Orally weekly for 90 day(s) Active PROCEDURES from 1940 to 2021-01-02 Procedure Date Ordered Result Body Site Imm: Pneumovax 23 0.5mL IM Pneumococcal 2020-12-27 N/A RESULTS No Results REASON FOR VISIT 3 mo follow up MEDICAL (GENERAL) HISTORY Type Description Date Medical [...] Treatment Notes Treatm ent Clinical Notes Dec, Acute gout of right foot, unspecified cause (ICD -10 - M10.9) Dec, computer terminal operator current use of anticoagulant therapy ( ICD-10 - Z79.01) Dec, Atrial fibrillation, persistent (ICD-10 - I48.19 ) Dec, Diabetes mellitus (ICD-10 - E11.9) Dec, Adenomatous polyp of colon, unspecified part of colon (ICD-10 - D12.6) Dec, Nasal congestion (ICD-10 - R09.81) Dec, Encounter for immunization (ICD-10 - Z23) Patient Educated with: PPSV23 [id number] (PPSV23 [id number].pdf) PLAN OF TREATMENT Medication Medication Name Sig [...] tablet Orally bid for 90 day(s) Nov, Benefiber - 1-3 tsp Orally Daily Nov, Zocor 10MG take 1 tablet once daily e very evening Orally Once a day for 90 day(s) Glucostix - as directed In Vitro daily Jul, Furosemide 40 MG 1 tablet Orally bid, with 3r d dose if weight up 4 lb in am.(Dr. Chacon) for 90 day(s) Ergocalciferol 73755 UNIT 1 capsule Orally weekly for 90 day(s) Flonase Allergy Relief 50 MCG/ACT 1 spray in each nost ril Nasally bid for 90 day(s) Oct, Iron 325 (65 Fe) MG 1 tablet Orally every other day Multivitamins 1 tab Orally once a day Treatment Notes Assessment Notes Clinical Notes Encounter for immunization Patient Educated with: PPSV 23 [id number] (PPSV23 [id number].pdf) Future Test Test Name Order Date Comprehensive Metabolic Profile (CMP) [id number] CBC - Complete Blood Count [id number] URIC ACID 20201227 LIPID PANEL (CARDIAC RISK) 20201227 HEMOGLOBIN A1c [id number] Next Appt Details 4 Months Reason: Provider Name:hTomas Griffith, 2021-01-16 08 :15:00 AM, [address] , , [place], [address], Provider Name:Thomas Griffith, 2021-04-11 11 :00:00 AM, [address] , , [place], [address], Insurance Providers Payer Name Payer Address Payer Phone Insured Name Patient Relati onship to Insured Coverage Start Date Coverage End Date MEDICARE Part A and B [address] [facility] [phone] BELIA PENA [facility] [address] [facility] [id number] BELIA PENA
--- OUTSIDE RECORDS SUMMARY | 2021-02-28 07:34 | CCD ---
Author Author [facility] Organization [facility] Address Unknown Phone Unavailable Care Team Providers Care Computer Sciences Professor Name Role Phone Thomas Griffith Unavailable PROBLEMS Type Condition ICD9-CM Code WAL37-UY Code Onset Dates Condition S tatus W/U Status Risk SNOMED Code Notes Problem Encounter for therapeutic drug monitoring Z51.81 Active confirmed 164975386 Problem Diabetes mellitus E11.9 Active confirmed 73 654238 Problem Acute gout of right foot, unspecified cause M10.9 Active confirmed 963143425 Problem S/P cardiac pacemaker procedure Z95.0 Active confi rmed 681873402 Problem Dementia without behavioral disturbance, unspeci fied dementia type F03.90 Active confirmed 39426762 Problem Encounter for general adult medical exam ination with abnormal findings Z00.01 Active confirmed 902816232 Problem Nocturnal hypoxemia G47.34 Active confirmed 589085723 Problem Other insomnia G47.09 Active confirmed 23627 2001 Problem Diverticulosis K57.90 Active confirmed 70871 1000 Problem 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 Active confirmed 027914969593162 Problem History of GI bleed Z87.19 Active confirmed 954647275 Problem alf current use of anticoagulant therapy Z79 .01 Active confirmed 251743541 Problem Hyperuricemia E79.0 Active confirmed 738641 06 Problem long term care phlebotomist (current) use of anticoagulants Z79.01 Active confirmed 589851940 Problem Longstanding persistent atrial fibrillation I48.11 Active confirmed 730794786 Problem Constipation, unspecified constipation type K59.00 Active confirmed 65743309 Problem Chronic atrial fibrillation I48.2 Active confirmed 835047962 ALLERGIES No Known Allergies ENCOUNTERS from 1940 to 2020-12-26 Encounter Location Date Provider Diagnosis [facility] August LY [phone] [place] [address] Dec, Thomas Griffith Longstanding persistent atrial fibrillat ion I48.11 and alf current use of anticoagulant therapy Z79.01 IMMUNIZATIONS [...] if weight up 4 lb in am.(Dr. Cahcon) for 90 days Active Zocor 10MG TAKE 1 TABLET ONCE DAILY EVERY EVENING Orally Once a day for 90 Active Multivitamins 1 tab Orally once a day Active Ergocalciferol 81895 UNIT 1 capsule Orally weekly for 84 [...] RESULTS Component Value Reference Range PT-INR Reviewed date:12/19/2020 12:38:18 Interpretation: Performing Lab:[facility] [place], ,[place] [address] INR 2.51 Verified Patient's Name and LAB DRAW Current Dose 1 7MG TUE,THUR,SAT,SUN Current Dose 2 8MG M,W,F Tab Strength Indication for Anticoagulation AFIB Ecchymosis or Bleeding Noted INR Range 2-3 Prothrombin Time/INR 25.9 Protime 2.51 Hold for Day(s) Education Given (Date / Initials) New Dose 1 PER NO CHANGE IN DOSE New Dose 2 Next PT Check 4 WEEKS Comments for PT-INR DAUGHTER AWARE REASON FOR VISIT [facility] PT/INR MEDICAL (GENERAL) [...] atrial fibrillation (ICD -10 - I48.11) Dec, alf current use of anticoagulant therapy ( [...] Oct, Next Appt Details Provider Name:Thomas Griffith, 2020-12-27 09 :30:00 AM, [address] , , [place], [address], Provider Name:Thomas Griffith, 2021-01-16 08 :15:00 AM, [address], , [place], [address], Insurance Providers Payer Name Payer Address Payer Phone Insured Name Patient Relati onship to Insured Coverage Start Date Coverage End Date MEDICARE Part A and B [address] [facility] [id number] [phone] BELIA PENA [facility] [address] [facility] [id number] BELIA PENA
[2021-02-28] MEDS: TETRACAINE 0.5% OPHTH SOLN 4ML OD SCH ×2 (07:57→08:02)
[2021-02-28] MEDS: PHENYLEPHRINE 2.5% OPHTH SOL 2ML OD SCH ×3 (08:03→08:29)
[2021-02-28] MEDS: CYCLOPENTOLATE 1% OPHTH SOLN 2 ML BTL OD SCH ×3 (08:04→08:30)
[2021-02-28] MEDS: FLURBIPROFEN 0.03% OPHTH SOLN 2.5 ML OD SCH ×3 (08:04→08:29)
[2021-02-28] MEDS ORDERED: BUPIVACAINE 0.75% 10 ML VIAL As Ordered ONE (08:56)
[2021-02-28] MEDS ORDERED: LIDOCAINE PRES-FREE 2% 10ML AMP As Ordered ONE (08:56)
[2021-02-28] MEDS ORDERED: TRYPAN BLUE 0.06 % 2.25 ML OPHTH SYR (VISIONBLUE) As Ordered ONE (08:58)
[2021-02-28] MEDS ORDERED: LIDOCAINE 1% SDV 5ML VIAL As Ordered ONE (09:03)
[2021-02-28] MEDS ORDERED: propofoL 200 MG/20 ML VIAL As Ordered ONE (10:10)
[2021-02-28] MEDS ORDERED: DUOVISC (0.50ML VISCOAT/0.85ML PROVISC) OPHTH KIT As Ordered ONE (10:41)
[2021-02-28] MEDS ORDERED: MAXITROL OPHTH OINT 3.5 GM As Ordered ONE (10:48)
[2021-02-28 11:40] VITALS: BP 134/68
--- NOTE | 2021-02-28 15:31 | ROOPDOC ---
[facility] Report Of Operation Report of Operation DATE OF PROCEDURE: 02/28/21 PREPROCEDURE DIAGNOSES: Cataract right eye. POSTPROCEDURE DIAGNOSES: Same. PROCEDURE PERFORMED: Cataract extraction with intraocular lens implantation right eye. SURGEON: Bryan Richardson MD ENVIRONMENTAL ECONOMIST: None ANESTHESIA: Local with IV sedation ESTIMATED BLOOD LOSS: None. COMPLICATIONS: None. SPECIMENS REMOVED: None DESCRIPTION OF PROCEDURE: The patient was brought to the operating room and administered a retrobulbar block after receiving intravenous sedation. He was then prepped and draped in the usual sterile fashion and an eyelid speculum was inserted in the right eye. A paracentesis was made and the anterior chamber was inflated with non-preserved lidocaine. This was followed by injection of air, Trypan blue dye and Viscoat due to the density of the lens. A groove was then made in the temporal clear cornea which was tunneled forward with the crescent blade and the anterior chamber was entered with a 2.75 keratome. The cystotome was used to make an incision in the center of the capsule and a continuous cur vilinear capsulorhexis was created. The lens was hydrodissected until it was found to rotate freely within the capsular bag. Phacoemulsification was then used to remove the lens in its entirety. Irrigation and aspiration were used to remove residual cortical material. The anterior chamber and capsular bag were reinflated with Provisc and a 24.5 diopter [id number] lens was injected into the capsular bag using the [place] injector. The lens was dialed into place using the Sinskey hook. Irrigation and aspiration were used to remove residual viscoelastic. The wound was stromally hydrated until was found to be watertight and the eye was in an appropriate pressure. The eyelid speculum was removed from the eye and Maxitrol ointment and a pressure patch were placed over the right eye. The patient was transferred to the recovery room in stable condition and will follow up tomorrow. The total CDE was 51.87. BRYAN RICHARDSON MD Feb 28, 2021 15:31
== END 2021-02-28 11:40 | disposition home or self-care (01) ==
LOC: M SDC 07:24
PROVIDERS: ATTEND Ophthalmology
DX: H25.11 Age-related nuclear cataract, right eye (principal); I11.0 Hypertensive heart disease with heart failure; I50.9 Heart failure, unspecified; J44.9 Chronic obstructive pulmonary disease, unspecified; F10.20 Alcohol dependence, uncomplicated; E66.9 Obesity, unspecified; E11.9 Type 2 diabetes mellitus without complications; M19.90 Unspecified osteoarthritis, unspecified site; G47.30 Sleep apnea, unspecified; N28.81 Hypertrophy of kidney; M10.9 Gout, unspecified; I48.11 Longstanding persistent atrial fibrillation; Z95.0 Presence of cardiac pacemaker; Z87.891 Personal history of nicotine dependence; Z88.8 Allergy status to other drugs, medicaments and biological substances; Z79.899 Other long term (current) drug therapy; Z79.01 Long term (current) use of anticoagulants
CPT/HCPCS: 66984; J2250; J3010; V2632

== ENCOUNTER → 2021-04-13 | Outpatient (CLI) | payer MEDICARE, BC, OTHER ==
[~2021-04-13] MED LIST changes: -LR 1,000 ML IV SCH; -MAXITROL OPHTH SUSP 5 ML As Ordered ONE; -MIDAZOLAM INJ 2MG/2ML VIAL (J2250 PER 1MG) As Ordered ONE; -fentaNYL 100 MCG/2 ML INJECTION (J3010) As Ordered ONE
== END ==
LOC: M LABSMTC 10:18
PROVIDERS: ATTEND Anesthesiology
DX: Z01.812 Encounter for preprocedural laboratory examination (principal)

== ENCOUNTER → 2021-06-08 | Outpatient (CLI) | payer MEDICARE, BC, OTHER ==
[~2021-06-08] MED LIST changes: +TORS100T PO; +XARE10TA PO
== END ==
LOC: M LABSMTC 11:50
PROVIDERS: ATTEND Anesthesiology
DX: Z01.812 Encounter for preprocedural laboratory examination (principal); Z20.822 Contact with and (suspected) exposure to COVID-19

== ENCOUNTER 2021-06-13 10:46 | Day surgery (SDC) | payer MEDICARE, BC, OTHER ==
[~2021-06-13] VITALS: Ht 180.3 cm; Wt 101.2 kg
[~2021-06-13 10:46] MED LIST changes: +CYCLOPENTOLATE 1% OPHTH SOLN 2 ML BTL OS SCH; +FLURBIPROFEN 0.03% OPHTH SOLN 2.5 ML OS SCH; +LIDOCAINE 1% SDV 5ML VIAL As Ordered ONE; +LR 1,000 ML IV SCH; +MIDAZOLAM INJ 2MG/2ML VIAL (J2250 PER 1MG) As Ordered ONE; +PHENYLEPHRINE 2.5% OPHTH SOL 2ML OS SCH; +TETRACAINE 0.5% OPHTH SOLN 4ML OS SCH; +TOBRADEX OPHTH SUSP 2.5 ML As Ordered ONE; +fentaNYL 100 MCG/2 ML INJECTION As Ordered ONE
[2021-06-13] MEDS ORDERED: propofoL 200 MG/20 ML VIAL As Ordered ONE (10:52)
[2021-06-13] MEDS ORDERED: LIDOCAINE 2% 100MG/5ML SDV (FOR ANES.) As Ordered ONE (10:52)
[2021-06-13] MEDS ORDERED: LIDOCAINE 1% SDV 5ML VIAL As Ordered ONE (11:56)
[2021-06-13] MEDS: BUPIVACAINE HCL 0.25% 30ML VIAL As Ordered ONE ×2 (11:56→12:23)
[2021-06-13] MEDS ORDERED: TRYPAN BLUE 0.06 % 2.25 ML OPHTH SYR (VISIONBLUE) As Ordered ONE ×2 (11:57→12:05)
[2021-06-13] MEDS ORDERED: BUPIVACAINE HCL 0.25% 10ML VIAL As Ordered ONE (11:59)
[2021-06-13] MEDS ORDERED: BUPIVACAINE 0.75% 10 ML VIAL As Ordered ONE (12:07)
[2021-06-13] MEDS ORDERED: TOBRADEX OPHTH OINT 3.5 GM As Ordered ONE (12:27)
[2021-06-13 13:30] VITALS: BP 137/66
== END 2021-06-13 13:40 | disposition home or self-care (01) ==
LOC: M SDC 10:46
PROVIDERS: ATTEND Ophthalmology
DX: H25.12 Age-related nuclear cataract, left eye (principal); I48.91 Unspecified atrial fibrillation; I11.0 Hypertensive heart disease with heart failure; Z95.0 Presence of cardiac pacemaker; E11.9 Type 2 diabetes mellitus without complications; M10.9 Gout, unspecified; M19.90 Unspecified osteoarthritis, unspecified site; G30.9 Alzheimer's disease, unspecified; G47.33 Obstructive sleep apnea (adult) (pediatric); Z87.891 Personal history of nicotine dependence; Z88.8 Allergy status to other drugs, medicaments and biological substances; Z79.899 Other long term (current) drug therapy
CPT/HCPCS: 66983; J2250; J3010; V2632

== ENCOUNTER → 2022-01-31 | Outpatient (REF) | payer MEDICARE, OTHER ==
[~2022-01-31] MED LIST changes: -CYCLOPENTOLATE 1% OPHTH SOLN 2 ML BTL OS SCH; -FLURBIPROFEN 0.03% OPHTH SOLN 2.5 ML OS SCH; -LIDOCAINE 1% SDV 5ML VIAL As Ordered ONE; -LR 1,000 ML IV SCH; -MIDAZOLAM INJ 2MG/2ML VIAL (J2250 PER 1MG) As Ordered ONE; -PHENYLEPHRINE 2.5% OPHTH SOL 2ML OS SCH; -TETRACAINE 0.5% OPHTH SOLN 4ML OS SCH; -TOBRADEX OPHTH SUSP 2.5 ML As Ordered ONE; -fentaNYL 100 MCG/2 ML INJECTION As Ordered ONE
[2022-01-31 11:41] LABS: HEMATOCRIT 37.5 % (42.0-52.0); HEMOGLOBIN 11.8 g/dl (13.5-17.5); MEAN CORPUSCULAR HEMOGLOBIN 30.3 pg (27.0-33.0); MEAN CORPUSCULAR HGB CONC 31.5 g/dl (32.0-36.5); MEAN CORPUSCULAR VOLUME 96.2 fl (80.0-96.0); PLATELET COUNT, AUTOMATED 214 10^3/uL (150-450); WHITE BLOOD COUNT 7.4 10^3/uL (4.0-10.0)
[2022-01-31 12:36] LABS: CREATININE FOR GFR 1.71 MG/DL (0.70-1.30); GLOMERULAR FILTRATION RATE 41.1 (>35); POTASSIUM SERUM 4.3 MEQ/L (3.5-5.1); URIC ACID 6.4 MG/DL (3.5-7.2)
== END ==
LOC: M SFHCCLAY 07:05
PROVIDERS: ATTEND Family Medicine
DX: I50.42 Chronic combined systolic (congestive) and diastolic (congestive) heart failure (principal); E11.9 Type 2 diabetes mellitus without complications; E79.0 Hyperuricemia without signs of inflammatory arthritis and tophaceous disease

== ENCOUNTER → 2022-02-20 | Outpatient (CLI) | payer MEDICARE, OTHER | LOC: M CLY 14:39 | PROVIDERS: ATTEND Physician Assistant | DX: M17.11 Unilateral primary osteoarthritis, right knee (principal) ==

== ENCOUNTER → 2022-04-29 | Outpatient (REF) | payer MEDICARE, OTHER ==
[2022-04-29 17:18] LABS: BASO # 0.1 10^3/uL (0.0-0.2); BASO % 0.6 % (0.0-1.0); EOS # 0.2 10^3/uL (0.0-0.5); EOS % 1.8 % (0.0-3.0); HEMATOCRIT 43.1 % (42.0-52.0); HEMOGLOBIN 13.4 g/dl (13.5-17.5); LYMPH # 1.7 10^3/uL (1.5-5.0); LYMPH % 16.8 % (24.0-44.0); MEAN CORPUSCULAR HEMOGLOBIN 29.4 pg (27.0-33.0); MEAN CORPUSCULAR HGB CONC 31.1 g/dl (32.0-36.5); MEAN CORPUSCULAR VOLUME 94.5 fl (80.0-96.0); MONO # 0.9 10^3/uL (0.0-0.8); MONO % 8.8 % (2.0-8.0); NEUTROPHILS # 7.4 10^3/uL (1.5-8.5); NEUTROPHILS % 71.5 % (36.0-66.0); PLATELET COUNT, AUTOMATED 267 10^3/uL (150-450); RED BLOOD COUNT 4.56 10^6/uL (4.30-6.10); WHITE BLOOD COUNT 10.3 10^3/uL (4.0-10.0)
[2022-04-29 17:28] LABS: HEMOGLOBIN A1c 5.3 % (4.0-6.0)
[2022-04-29 17:43] LABS: CALCIUM LEVEL 8.8 MG/DL (8.3-10.6); CREATININE FOR GFR 1.88 MG/DL (0.70-1.30); GLOMERULAR FILTRATION RATE 36.8 (>35); POTASSIUM SERUM 4.6 MMOL/L (3.5-5.1)
== END ==
LOC: M SFHCCLAY 13:47
PROVIDERS: ATTEND Family Medicine
DX: Z23 Encounter for immunization (principal); E11.9 Type 2 diabetes mellitus without complications; Z87.19 Personal history of other diseases of the digestive system

== ENCOUNTER → 2023-05-05 | Outpatient (REF) | payer MEDICARE, BC, OTHER ==
[2023-05-05 18:28] LABS: HEMATOCRIT 30.6 % (42.0-52.0); HEMOGLOBIN 9.5 g/dl (13.5-17.5); MEAN CORPUSCULAR HEMOGLOBIN 30.9 pg (27.0-33.0); MEAN CORPUSCULAR VOLUME 99.7 fl (80.0-96.0); PLATELET COUNT, AUTOMATED 251 10^3/uL (150-450); RED BLOOD COUNT 3.07 10^6/uL (4.30-6.10); WHITE BLOOD COUNT 9.4 10^3/uL (4.0-10.0)
[2023-05-05 18:52] LABS: BLOOD UREA NITROGEN 14 MG/DL (9-23); CALCIUM LEVEL 8.2 MG/DL (8.3-10.6); CARBON DIOXIDE LEVEL 27 MMOL/L (20-31); CHLORIDE LEVEL 108 MMOL/L (98-107); CREATININE FOR GFR 1.05 MG/DL (0.70-1.30); GLOMERULAR FILTRATION RATE > 60.0 (>35); GLUCOSE, FASTING 71 MG/DL (74-106); POTASSIUM SERUM 4.6 MMOL/L (3.5-5.1); SODIUM LEVEL 140 MMOL/L (136-145)
[2023-05-05 18:53] LABS: TOTAL IRON BINDING CAPACITY 305 UG/DL (250-425)
[2023-05-06 17:07] LABS: IRON (FE) 33 UG/DL (65-175); PERCENT SATURATION 10.8 % (19.7-50.0)
== END ==
LOC: M SFHCCLAY 10:45
PROVIDERS: ATTEND Family Medicine
DX: K92.2 Gastrointestinal hemorrhage, unspecified (principal)

== ENCOUNTER → 2023-09-03 | Outpatient (REF) | payer MEDICARE, BC, OTHER, MEDICAID ==
[2023-09-03 11:38] LABS: HEMATOCRIT 32.4 % (42.0-52.0); HEMOGLOBIN 10.1 g/dl (13.5-17.5); MEAN CORPUSCULAR HEMOGLOBIN 27.9 pg (27.0-33.0); MEAN CORPUSCULAR HGB CONC 31.2 g/dl (32.0-36.5); MEAN CORPUSCULAR VOLUME 89.5 fl (80.0-96.0); PLATELET COUNT, AUTOMATED 269 10^3/uL (150-450); RED BLOOD COUNT 3.62 10^6/uL (4.30-6.10); WHITE BLOOD COUNT 8.3 10^3/uL (4.0-10.0)
[2023-09-03 12:08] LABS: CALCIUM LEVEL 8.6 MG/DL (8.3-10.6); CREATININE FOR GFR 1.77 MG/DL (0.70-1.30); GLOMERULAR FILTRATION RATE 39.3 (>35); POTASSIUM SERUM 4.8 MMOL/L (3.5-5.1)
== END ==
LOC: SKLAB3 10:42
PROVIDERS: ATTEND Family Medicine
DX: I50.9 Heart failure, unspecified (principal); I70.0 Atherosclerosis of aorta; Z95.0 Presence of cardiac pacemaker

== ENCOUNTER → 2023-09-04 | Outpatient (REF) | payer MEDICARE, BC, OTHER, MEDICAID | LOC: SKLAB3 08:27 | PROVIDERS: ATTEND Family Medicine | DX: I50.9 Heart failure, unspecified (principal) ==

== ENCOUNTER → 2023-10-05 | Outpatient (REF) | payer MEDICARE, BC, OTHER, MEDICAID | LOC: SKLAB8 09:16 | PROVIDERS: ATTEND Family Medicine | DX: Z51.81 Encounter for therapeutic drug level monitoring (principal); Z79.899 Other long term (current) drug therapy ==

== ENCOUNTER → 2023-10-15 | Outpatient (REF) | payer MEDICARE, MEDICAID ==
[2023-10-15 14:17] LABS: PHOSPHORUS LEVEL 4.4 MG/DL (2.4-5.1); PTH INTACT 71.2 PG/ML (18.5-88.0)
[2023-10-15 14:20] LABS: TOTAL 25(OH) VITAMIN D 72.8 NG/ML (20.0-100.0)
== END ==
LOC: SKLAB8 07:39
PROVIDERS: ATTEND Internal Medicine
DX: N18.9 Chronic kidney disease, unspecified (principal); Z79.899 Other long term (current) drug therapy

== ENCOUNTER → 2024-03-21 | Outpatient (REF) | payer MEDICARE, MEDICAID, BC, OTHER ==
[2024-03-21 10:34] LABS: HEMATOCRIT 34.8 % (42.0-52.0); HEMOGLOBIN 11.4 g/dl (13.5-17.5); MEAN CORPUSCULAR HEMOGLOBIN 30.6 pg (27.0-33.0); MEAN CORPUSCULAR HGB CONC 32.8 g/dl (32.0-36.5); MEAN CORPUSCULAR VOLUME 93.5 fl (80.0-96.0); PLATELET COUNT, AUTOMATED 200 10^3/uL (150-450); RED BLOOD COUNT 3.72 10^6/uL (4.30-6.10); WHITE BLOOD COUNT 8.5 10^3/uL (4.0-10.0)
[2024-03-21 10:55] LABS: CALCIUM LEVEL 9.1 MG/DL (8.3-10.6); CREATININE FOR GFR 1.72 MG/DL (0.70-1.30); GLOMERULAR FILTRATION RATE 40.5 (>35); POTASSIUM SERUM 4.8 MMOL/L (3.5-5.1)
== END ==
LOC: SKLAB8 06:59
PROVIDERS: ATTEND Family Medicine
DX: Z91.81 History of falling (principal)

== ENCOUNTER → 2024-03-21 | Outpatient (CLI) | payer BC, MEDICARE | LOC: M RAD 10:52 | PROVIDERS: ATTEND Nurse Practitioner Adult Health | DX: M16.12 Unilateral primary osteoarthritis, left hip (principal); Z91.81 History of falling ==

== ENCOUNTER → 2024-05-20 | Outpatient (REF) | payer MEDICAID, MEDICARE ==
[2024-05-20 12:13] LABS: HEMATOCRIT 35.4 % (42.0-52.0); HEMOGLOBIN 11.5 g/dl (13.5-17.5); MEAN CORPUSCULAR HEMOGLOBIN 29.9 pg (27.0-33.0); MEAN CORPUSCULAR HGB CONC 32.5 g/dl (32.0-36.5); MEAN CORPUSCULAR VOLUME 92.2 fl (80.0-96.0); PLATELET COUNT, AUTOMATED 208 10^3/uL (150-450); RED BLOOD COUNT 3.84 10^6/uL (4.30-6.10)
[2024-05-20 12:45] LABS: CALCIUM LEVEL 8.6 MG/DL (8.3-10.6); CREATININE FOR GFR 1.56 MG/DL (0.70-1.30); GLOMERULAR FILTRATION RATE 45.4 (>35); POTASSIUM SERUM 4.7 MMOL/L (3.5-5.1)
== END ==
LOC: SKLAB8 08:03
PROVIDERS: ATTEND Internal Medicine
DX: R41.82 Altered mental status, unspecified (principal)

== ENCOUNTER → 2024-05-23 | Outpatient (REF) | payer MEDICARE, MEDICAID ==
[2024-05-23 19:27] LABS: APPEARANCE, URINE CLEAR (CLEAR); BACTERIA, URINE AUTO 1+ (NEGATIVE); BILIRUBIN, URINE AUTO NEGATIVE (NEGATIVE); BLOOD, URINE BLOOD NEGATIVE (NEGATIVE); COLOR, URINE YELLOW (YELLOW); GLUCOSE, URINE (UA) AUTO NEGATIVE (NEGATIVE); KETONE, URINE AUTO NEGATIVE (NEGATIVE); LEUKOCYTE ESTERASE, URINE AUTO 2+ (NEGATIVE); MUCUS, URINE SMALL (NEGATIVE); NITRITE, URINE AUTO NEGATIVE (NEGATIVE); PROTEIN, URINE AUTO NEGATIVE (NEGATIVE); RBC, URINE AUTO 2 /HPF (0-3); SPECIFIC GRAVITY URINE AUTO 1.011 (1.002-1.035); SQUAMOUS EPITHELIAL CELL UR AU 0 /HPF (0-6); UROBILINOGEN, URINE AUTO 0.2 mg/dL (0.0-2.0); WBC, URINE AUTO 26 /HPF (0-3)
== END ==
LOC: SKLAB8 14:42
PROVIDERS: ATTEND Internal Medicine
DX: R41.82 Altered mental status, unspecified (principal)

== ENCOUNTER 2024-07-07 11:49 | Inpatient (IN) | payer MEDICARE, MEDICAID ==
[~2024-07-07] VITALS: Ht 180.3 cm; Wt 87.0 kg
[~2024-07-07 11:49] MED LIST changes: -ACET-683 PO; -BENA25CA4 PO; -BISA10SU27 PR; -DEXT4TAB9 PO; -DICL100G10 TOP; -ELIQ2.5T PO; -EMOL454C2 TOP; -HYDR-643 PO; -NYST-13 TOP; -PARO20TA4 PO; -QUET1TAB17 PO; -QUET50TA4 PO; -TORS10TA3 PO; -TRAM50TA2 PO
[2024-07-07 12:34] LABS: HEMATOCRIT 36.4 % (42.0-52.0); HEMOGLOBIN 11.9 g/dl (13.5-17.5); MEAN CORPUSCULAR HEMOGLOBIN 30.3 pg (27.0-33.0); MEAN CORPUSCULAR HGB CONC 32.7 g/dl (32.0-36.5); MEAN CORPUSCULAR VOLUME 92.6 fl (80.0-96.0); PLATELET COUNT, AUTOMATED 221 10^3/uL (150-450); RED BLOOD COUNT 3.93 10^6/uL (4.30-6.10); WHITE BLOOD COUNT 11.2 10^3/uL (4.0-10.0)
[2024-07-07 12:48] LABS: INR 1.3; PARTIAL THROMBOPLASTIN TIME 35.5 SECONDS (24.8-34.2); PROTHROMBIN TIME 16.5 SECONDS (12.5-14.5)
[2024-07-07 13:02] LABS: CALCIUM LEVEL 8.9 MG/DL (8.3-10.6); CREATININE FOR GFR 1.55 MG/DL (0.70-1.30); GLOMERULAR FILTRATION RATE 45.7 (>35)
[2024-07-07] MEDS: MORPHINE 2 MG/ML 1ML VIAL IV ONE (13:30)
[2024-07-07] MEDS ORDERED: DEXT4TAB9 PO (14:08)
[2024-07-07] MEDS ORDERED: NYST-13 TOP (14:08)
[2024-07-07] MEDS ORDERED: TORS10TA3 PO (14:08)
[2024-07-07] MEDS ORDERED: ACET-683 PO (14:08)
[2024-07-07] MEDS ORDERED: PARO20TA4 PO (14:08)
[2024-07-07] MEDS ORDERED: HYDR-643 PO (14:08)
[2024-07-07] MEDS ORDERED: ELIQ2.5T PO (14:08)
[2024-07-07] MEDS ORDERED: BENA25CA4 PO (14:08)
[2024-07-07] MEDS ORDERED: TRAM50TA2 PO (14:08)
[2024-07-07] MEDS ORDERED: DICL100G10 TOP (14:08)
[2024-07-07] MEDS ORDERED: QUET1TAB17 PO (14:08)
[2024-07-07] MEDS ORDERED: BISA10SU27 PR (14:08)
[2024-07-07] MEDS ORDERED: QUET50TA4 PO (14:08)
[2024-07-07] MEDS ORDERED: EMOL454C2 TOP (14:08)
[2024-07-07] MEDS ORDERED: HOME MED LIST COMPLETE! XX SCH (14:10)
[2024-07-07] MEDS ORDERED: ACETAMINOPHEN 325 MG TAB PO PRN (15:15)
[2024-07-07] MEDS ORDERED: BISACODYL 10MG SUPP PR PRN (15:25)
[2024-07-07] MEDS ORDERED: PILL CUTTER 1 EACH XX PRN (15:45)
[2024-07-07 16:00] VITALS: BP 126/46; TEMP 97.3; O2SAT 91
[2024-07-07] MEDS: ACETAMINOPHEN 500 MG TAB PO SCH (16:30)
[2024-07-07] MEDS ORDERED: DEXTROSE 50% 50ML SYRINGE IV PRN (19:50)
[2024-07-07] MEDS ORDERED: GLUCOSE 4 GM CHEW PO PRN (19:50)
[2024-07-07] MEDS ORDERED: GLUCAGON INJ 1MG VIAL SC PRN (19:50)
[2024-07-07 19:51] VITALS: BP 150/73; TEMP 97.9; O2SAT 93
[2024-07-07] MEDS: INSULIN LISPRO (NovoLOG) PER UNIT SC SCH (21:00)
[2024-07-07] MEDS: MIRALAX *UNIT DOSE* 17GM PACKET PO SCH (21:05)
[2024-07-07] MEDS: FUROSEMIDE 100MG/10ML VIAL IV ONE (21:05)
[2024-07-07] MEDS: QUEtiapine FUMARATE 50MG TAB PO SCH (21:06)
[2024-07-07] MEDS: SIMVASTATIN 10 MG TAB PO SCH (21:06)
[2024-07-07] MEDS: SENOKOT S TAB PO SCH (21:07)
[2024-07-08] VITALS (7 sets, daily range): BP systolic 100–141; BP diastolic 50–68; TEMP 97.3–97.9; O2SAT 90–96
[2024-07-08] MEDS: oxyCODONE 5MG TAB PO PRN (00:31)
[2024-07-08 05:52] LABS: HEMATOCRIT 36.8 % (42.0-52.0); HEMOGLOBIN 12.1 g/dl (13.5-17.5); MEAN CORPUSCULAR HEMOGLOBIN 29.8 pg (27.0-33.0); MEAN CORPUSCULAR HGB CONC 32.9 g/dl (32.0-36.5); MEAN CORPUSCULAR VOLUME 90.6 fl (80.0-96.0); PLATELET COUNT, AUTOMATED 221 10^3/uL (150-450); RED BLOOD COUNT 4.06 10^6/uL (4.30-6.10); WHITE BLOOD COUNT 11.9 10^3/uL (4.0-10.0)
[2024-07-08 06:13] LABS: CREATININE FOR GFR 1.83 MG/DL (0.70-1.30); GLOMERULAR FILTRATION RATE 37.7 (>35); POTASSIUM SERUM 4.4 MMOL/L (3.5-5.1)
[2024-07-08] MEDS: INSULIN LISPRO (NovoLOG) PER UNIT SC SCH (07:30)
[2024-07-08] MEDS: QUEtiapine FUMARATE 12.5 MG HALF-TAB PO SCH (08:10)
[2024-07-08] MEDS ORDERED: LIDOCAINE 2% 100MG/5ML SDV (FOR ANES.) As Ordered ONE (12:20)
[2024-07-08] MEDS ORDERED: propofoL 200 MG/20 ML VIAL As Ordered ONE (12:20)
[2024-07-08] MEDS ORDERED: ROCURONIUM BROMIDE 50MG/5ML VIAL As Ordered ONE (12:20)
[2024-07-08] MEDS ORDERED: ONDANSETRON 4MG 2ML VIAL As Ordered ONE (12:25)
[2024-07-08] MEDS ORDERED: BUPivacaine LIPOSOME/PF 266MG 20ML VIAL (13.3MG/ML)(EXPAREL) As Ordered ONE (13:23)
[2024-07-08] MEDS ORDERED: LIDOCAINE W/EPINEPHRINE 1% 20ML VIAL As Ordered ONE (13:23)
[2024-07-08] MEDS: TRANEXAMIC ACID 100 MG/ML 10ML VIAL As Ordered ONE (13:23)
[2024-07-08] MEDS ORDERED: fentaNYL 100 MCG/2 ML INJECTION As Ordered ONE (13:30)
[2024-07-08] MEDS ORDERED: MIDAZOLAM INJ 2MG/2ML VIAL As Ordered ONE (13:30)
[2024-07-08] MEDS: TORSEMIDE 10 MG TABLET PO SCH (14:56)
[2024-07-08] MEDS: PARoxetine 20MG TABLET PO SCH (14:56)
[2024-07-08] MEDS: tiZANidine 4 MG TAB PO PRN (22:39)
[2024-07-08] MEDS: SENNA 8.6 MG TAB (SENOKOT) PO PRN (22:42)
[2024-07-09] VITALS (11 sets, daily range): BP systolic 93–109; BP diastolic 53–64; TEMP 97.3–97.9; O2SAT 88–98
[2024-07-09 06:26] LABS: HEMOGLOBIN 11.3 g/dl (13.5-17.5); MEAN CORPUSCULAR HEMOGLOBIN 29.8 pg (27.0-33.0); MEAN CORPUSCULAR HGB CONC 32.3 g/dl (32.0-36.5); MEAN CORPUSCULAR VOLUME 92.3 fl (80.0-96.0); PLATELET COUNT, AUTOMATED 167 10^3/uL (150-450); RED BLOOD COUNT 3.79 10^6/uL (4.30-6.10); WHITE BLOOD COUNT 11.8 10^3/uL (4.0-10.0)
[2024-07-09 06:59] LABS: CALCIUM LEVEL 8.8 MG/DL (8.3-10.6); CREATININE FOR GFR 2.07 MG/DL (0.70-1.30); GLOMERULAR FILTRATION RATE 32.7 (>35); POTASSIUM SERUM 3.8 MMOL/L (3.5-5.1)
[2024-07-09] MEDS ORDERED: D5W/0.9% SODIUM CHLORIDE 1,000 ML IV SCH (08:05)
[2024-07-09] MEDS: D5W/LR 1,000 ML IV SCH (09:28)
[2024-07-09] MEDS ORDERED: ETOMIDATE INJ 20MG/10ML VIAL As Ordered ONE (10:07)
[2024-07-09] MEDS ORDERED: ACETAMINOPHEN 1000MG/100ML IV BAG As Ordered ONE (10:08)
[2024-07-09] MEDS: CLINDAMYCIN 600MG/50ML PREMIX BAG As Ordered ONE (11:19)
[2024-07-09] MEDS ORDERED: PHENYLephrine 500MCG 5ML (100MCG/ML) SYRINGE As Ordered ONE (11:29)
[2024-07-09] MEDS ORDERED: ePHEDrine SULFATE 25 MG/5 ML(5MG/ML) SYRINGE As Ordered ONE (11:29)
[2024-07-09] MEDS: ceFAZolin SODIUM 2 GM VIAL As Ordered ONE (11:36)
[2024-07-09] MEDS ORDERED: PHENYLEPHRINE 10MG/ML 1ML VIAL As Ordered ONE (12:00)
[2024-07-09] MEDS ORDERED: SUGAMMADEX SODIUM 500 MG/5 ML VIAL (BRIDION) As Ordered ONE (12:17)
[2024-07-09] MEDS ORDERED: ONDANSETRON 4MG 2ML VIAL IV PRN (13:45)
[2024-07-09] MEDS ORDERED: fentaNYL 100 MCG/2 ML INJECTION IV PRN (13:45)
[2024-07-09] MEDS ORDERED: MORPHINE 2 MG/ML 1ML VIAL IV PRN (13:45)
[2024-07-09] MEDS: cefTRIAXone SOD 1 GM in DEXTROSE 5% (D5W) ADV/MINI-BAG 50 ML IV SCH (15:25)
[2024-07-09 15:49] LABS: APPEARANCE, URINE CLOUDY (CLEAR); BACTERIA, URINE AUTO NEGATIVE (NEGATIVE); BILIRUBIN, URINE AUTO NEGATIVE (NEGATIVE); BLOOD, URINE BLOOD 2+ (NEGATIVE); COLOR, URINE YELLOW (YELLOW); GLUCOSE, URINE (UA) AUTO NEGATIVE (NEGATIVE); KETONE, URINE AUTO NEGATIVE (NEGATIVE); LEUKOCYTE ESTERASE, URINE AUTO 2+ (NEGATIVE); MUCUS, URINE SMALL (NEGATIVE); NITRITE, URINE AUTO NEGATIVE (NEGATIVE); PROTEIN, URINE AUTO 2+ mg/dL (NEGATIVE); RBC, URINE AUTO 46 /HPF (0-3); SQUAMOUS EPITHELIAL CELL UR AU 1 /HPF (0-6); UROBILINOGEN, URINE AUTO 0.2 mg/dL (0.0-2.0); WBC, URINE AUTO 56 /HPF (0-3)
[2024-07-10] VITALS (10 sets, daily range): BP systolic 99–101; BP diastolic 50–57; TEMP 97.5–97.7; O2SAT 89–95
[2024-07-10 06:14] LABS: HEMATOCRIT 30.6 % (42.0-52.0); HEMOGLOBIN 9.9 g/dl (13.5-17.5); MEAN CORPUSCULAR HEMOGLOBIN 30.6 pg (27.0-33.0); MEAN CORPUSCULAR HGB CONC 32.4 g/dl (32.0-36.5); MEAN CORPUSCULAR VOLUME 94.4 fl (80.0-96.0); PLATELET COUNT, AUTOMATED 145 10^3/uL (150-450); RED BLOOD COUNT 3.24 10^6/uL (4.30-6.10); WHITE BLOOD COUNT 11.2 10^3/uL (4.0-10.0)
[2024-07-10 06:40] LABS: CALCIUM LEVEL 8.4 MG/DL (8.3-10.6); CREATININE FOR GFR 2.12 MG/DL (0.70-1.30); GLOMERULAR FILTRATION RATE 31.8 (>35); POTASSIUM SERUM 5.1 MMOL/L (3.5-5.1)
[2024-07-10] MEDS: ASPIRIN 81MG CHEW TABLET PO SCH (09:28)
[2024-07-10] MEDS: PATIROMER SORBITEX CALCIUM 8.4 GM POWDER PACKET (VELTASSA) PO ONE (16:10)
[2024-07-10] MEDS: APIXABAN 2.5 MG TAB (ELIQUIS) PO SCH (21:08)
[2024-07-11] VITALS (9 sets, daily range): BP systolic 90–118; BP diastolic 54–57; TEMP 97–97.7; O2SAT 74–96
[2024-07-11] MEDS: oxyCODONE 5MG TAB PO PRN (01:21)
[2024-07-11 05:24] LABS: HEMATOCRIT 28.3 % (42.0-52.0); HEMOGLOBIN 9.1 g/dl (13.5-17.5); MEAN CORPUSCULAR HEMOGLOBIN 29.5 pg (27.0-33.0); MEAN CORPUSCULAR HGB CONC 32.2 g/dl (32.0-36.5); MEAN CORPUSCULAR VOLUME 91.9 fl (80.0-96.0); PLATELET COUNT, AUTOMATED 151 10^3/uL (150-450); RED BLOOD COUNT 3.08 10^6/uL (4.30-6.10); WHITE BLOOD COUNT 9.6 10^3/uL (4.0-10.0)
[2024-07-11 05:46] LABS: CALCIUM LEVEL 7.9 MG/DL (8.3-10.6); CREATININE FOR GFR 2.1 MG/DL (0.70-1.30); GLOMERULAR FILTRATION RATE 32.2 (>35); POTASSIUM SERUM 4.6 MMOL/L (3.5-5.1)
[2024-07-11 17:09] LABS: HEMATOCRIT 29.2 % (42.0-52.0); HEMOGLOBIN 9.4 g/dl (13.5-17.5); MEAN CORPUSCULAR HEMOGLOBIN 29.7 pg (27.0-33.0); MEAN CORPUSCULAR HGB CONC 32.2 g/dl (32.0-36.5); MEAN CORPUSCULAR VOLUME 92.4 fl (80.0-96.0); PLATELET COUNT, AUTOMATED 175 10^3/uL (150-450); RED BLOOD COUNT 3.16 10^6/uL (4.30-6.10); WHITE BLOOD COUNT 10.2 10^3/uL (4.0-10.0)
[2024-07-12] VITALS (11 sets, daily range): BP systolic 105–136; BP diastolic 52–64; TEMP 97.5–97.7; O2SAT 92–98
[2024-07-12 05:55] LABS: HEMATOCRIT 28.1 % (42.0-52.0); HEMOGLOBIN 9.2 g/dl (13.5-17.5); MEAN CORPUSCULAR HEMOGLOBIN 29.9 pg (27.0-33.0); MEAN CORPUSCULAR HGB CONC 32.7 g/dl (32.0-36.5); MEAN CORPUSCULAR VOLUME 91.2 fl (80.0-96.0); PLATELET COUNT, AUTOMATED 165 10^3/uL (150-450); RED BLOOD COUNT 3.08 10^6/uL (4.30-6.10); WHITE BLOOD COUNT 8.5 10^3/uL (4.0-10.0)
[2024-07-12 06:30] LABS: CALCIUM LEVEL 7.9 MG/DL (8.3-10.6); CREATININE FOR GFR 1.63 MG/DL (0.70-1.30); GLOMERULAR FILTRATION RATE 43.1 (>35); POTASSIUM SERUM 4.3 MMOL/L (3.5-5.1)
[2024-07-12] MEDS: CEFDINIR 300 MG CAP (OMNICEF) PO SCH (20:30)
[2024-07-13 03:50] VITALS: BP 132/63; TEMP 97.5; O2SAT 95
[2024-07-13 06:00] LABS: HEMOGLOBIN 9.1 g/dl (13.5-17.5); MEAN CORPUSCULAR HEMOGLOBIN 30.3 pg (27.0-33.0); MEAN CORPUSCULAR HGB CONC 32.5 g/dl (32.0-36.5); MEAN CORPUSCULAR VOLUME 93.3 fl (80.0-96.0); PLATELET COUNT, AUTOMATED 205 10^3/uL (150-450); WHITE BLOOD COUNT 9.5 10^3/uL (4.0-10.0)
[2024-07-13 06:37] LABS: CALCIUM LEVEL 7.9 MG/DL (8.3-10.6); CREATININE FOR GFR 1.5 MG/DL (0.70-1.30); GLOMERULAR FILTRATION RATE 47.5 (>35); POTASSIUM SERUM 4.9 MMOL/L (3.5-5.1)
[2024-07-13] MEDS ORDERED: OXYC-517 PO (08:37)
[2024-07-13] MEDS ORDERED: FERR325T3 PO (08:37)
[2024-07-13] MEDS ORDERED: SENN-52 PO (08:37)
== END 2024-07-13 10:01 | DRG 480 ==
LOC: M ED 11:49 → M ED INP 15:15 → M MSPAV 16:13
PROVIDERS: ADMIT Student in an Organized Health Care Education/Training Program; ATTEND Internal Medicine Nephrology
PROC: 0QS704Z Reposition Left Upper Femur with Internal Fixation Device, Open Approach (ICD-10-PCS; principal; 2024-07-09 10:30)
DX: S72.142A Displaced intertrochanteric fracture of left femur, initial encounter for closed fracture (principal); G93.41 Metabolic encephalopathy; I50.42 Chronic combined systolic (congestive) and diastolic (congestive) heart failure; N17.9 Acute kidney failure, unspecified; D62 Acute posthemorrhagic anemia; G30.9 Alzheimer's disease, unspecified; F02.80 Dementia in other diseases classified elsewhere, unspecified severity, without behavioral disturbance, psychotic disturbance, mood disturbance, and anxiety; E11.22 Type 2 diabetes mellitus with diabetic chronic kidney disease; I48.91 Unspecified atrial fibrillation; Z95.0 Presence of cardiac pacemaker; E78.5 Hyperlipidemia, unspecified; Z66 Do not resuscitate; N18.30 Chronic kidney disease, stage 3 unspecified; Z79.01 Long term (current) use of anticoagulants; Z79.899 Other long term (current) drug therapy; Z88.8 Allergy status to other drugs, medicaments and biological substances; W19.XXXA Unspecified fall, initial encounter; Y92.129 Unspecified place in nursing home as the place of occurrence of the external cause; I95.9 Hypotension, unspecified; R33.9 Retention of urine, unspecified; J20.9 Acute bronchitis, unspecified

== ENCOUNTER → 2024-07-07 | Outpatient (CLI) | payer MEDICARE, MEDICAID ==
[~2024-07-07] MED LIST changes: +ACET-683 PO; +BENA25CA4 PO; +BISA10SU27 PR; +DEXT4TAB9 PO; +DICL100G10 TOP; +ELIQ2.5T PO; +EMOL454C2 TOP; +HYDR-643 PO; +NYST-13 TOP; +PARO20TA4 PO; +QUET1TAB17 PO; +QUET50TA4 PO; +TORS10TA3 PO; +TRAM50TA2 PO
== END ==
LOC: M RAD 11:08
PROVIDERS: ATTEND Nurse Practitioner Adult Health
DX: S72.142A Displaced intertrochanteric fracture of left femur, initial encounter for closed fracture (principal); X58.XXXA Exposure to other specified factors, initial encounter; Y92.9 Unspecified place or not applicable; Y93.9 Activity, unspecified; Y99.9 Unspecified external cause status

== ENCOUNTER → 2024-07-18 | Outpatient (REF) | payer MEDICARE, MEDICAID ==
[~2024-07-18] MED LIST changes: +ACET-683 PO; +BENA25CA4 PO; +BISA10SU27 PR; +DEXT4TAB9 PO; +DICL100G10 TOP; +ELIQ2.5T PO; +EMOL454C2 TOP; +FERR325T3 PO; +HYDR-643 PO; +NYST-13 TOP; +OXYC-517 PO; +PARO20TA4 PO; +QUET1TAB17 PO; +QUET50TA4 PO; +SENN-52 PO; +TORS10TA3 PO; +TRAM50TA2 PO
[2024-07-18 06:25] LABS: HEMATOCRIT 28.7 % (42.0-52.0); HEMOGLOBIN 9.2 g/dl (13.5-17.5); MEAN CORPUSCULAR HEMOGLOBIN 29.8 pg (27.0-33.0); MEAN CORPUSCULAR HGB CONC 32.1 g/dl (32.0-36.5); MEAN CORPUSCULAR VOLUME 92.9 fl (80.0-96.0); PLATELET COUNT, AUTOMATED 290 10^3/uL (150-450); RED BLOOD COUNT 3.09 10^6/uL (4.30-6.10); WHITE BLOOD COUNT 11.1 10^3/uL (4.0-10.0)
[2024-07-18 06:53] LABS: ALBUMIN 2.6 G/DL (3.2-5.2); BILIRUBIN,TOTAL 0.7 MG/DL (0.3-1.2); CALCIUM LEVEL 8.4 MG/DL (8.3-10.6); CREATININE FOR GFR 1.38 MG/DL (0.70-1.30); GLOMERULAR FILTRATION RATE 52.3 (>35); TOTAL PROTEIN 6.7 G/DL (5.7-8.2)
[2024-07-18 07:10] LABS: HEMOGLOBIN A1c 5.2 % (4.0-6.0)
== END ==
LOC: SKLAB8 07:00
PROVIDERS: ATTEND Internal Medicine
DX: E11.9 Type 2 diabetes mellitus without complications (principal)

== ENCOUNTER → 2024-07-21 | Outpatient (REF) | payer MEDICARE, MEDICAID ==
[2024-07-21 08:14] LABS: HEMOGLOBIN 9.6 g/dl (13.5-17.5); MEAN CORPUSCULAR HEMOGLOBIN 29.6 pg (27.0-33.0); MEAN CORPUSCULAR VOLUME 92.6 fl (80.0-96.0); PLATELET COUNT, AUTOMATED 308 10^3/uL (150-450); RED BLOOD COUNT 3.24 10^6/uL (4.30-6.10)
== END ==
LOC: SKLAB8 07-18 10:46
PROVIDERS: ATTEND Internal Medicine
DX: T81.49XA Infection following a procedure, other surgical site, initial encounter (principal); Z79.899 Other long term (current) drug therapy

== ENCOUNTER → 2024-07-22 | Outpatient (REF) | payer MEDICARE, MEDICAID ==
[2024-07-22 08:27] LABS: HEMOGLOBIN A1c 5.5 % (4.0-6.0)
== END ==
LOC: SKLAB8 06:41
PROVIDERS: ATTEND Internal Medicine
DX: E11.9 Type 2 diabetes mellitus without complications (principal)

== ENCOUNTER → 2024-07-26 | Outpatient (REF) | payer MEDICARE, MEDICAID ==
[2024-07-26 08:27] LABS: HEMOGLOBIN A1c 5.1 % (4.0-6.0)
== END ==
LOC: SKLAB6 07:00
PROVIDERS: ATTEND Internal Medicine
DX: E11.9 Type 2 diabetes mellitus without complications (principal)

== ENCOUNTER → 2024-08-04 | Outpatient (CLI) | payer MEDICARE, MEDICAID | LOC: M SOG 07:14 | PROVIDERS: ATTEND Physician Assistant | DX: Z53.9 Procedure and treatment not carried out, unspecified reason (principal) ==

== ENCOUNTER → 2024-08-18 | Outpatient (REF) | payer MEDICARE, MEDICAID ==
[~2024-08-18] MED LIST changes: -NYST-13 TOP; +NYST0.1C TOP
[2024-08-18 07:46] LABS: HEMATOCRIT 33.9 % (42.0-52.0); HEMOGLOBIN 10.8 g/dl (13.5-17.5); MEAN CORPUSCULAR HEMOGLOBIN 29.3 pg (27.0-33.0); MEAN CORPUSCULAR HGB CONC 31.9 g/dl (32.0-36.5); MEAN CORPUSCULAR VOLUME 91.9 fl (80.0-96.0); PLATELET COUNT, AUTOMATED 241 10^3/uL (150-450); RED BLOOD COUNT 3.69 10^6/uL (4.30-6.10); WHITE BLOOD COUNT 6.6 10^3/uL (4.0-10.0)
[2024-08-18 08:21] LABS: CALCIUM LEVEL 8.7 MG/DL (8.3-10.6); CREATININE FOR GFR 1.2 MG/DL (0.70-1.30); GLOMERULAR FILTRATION RATE 59.6 (>35); POTASSIUM SERUM 4.4 MMOL/L (3.5-5.1)
== END ==
LOC: SKLAB8 07:00
PROVIDERS: ATTEND Internal Medicine
DX: D64.9 Anemia, unspecified (principal)

== ENCOUNTER → 2024-08-22 | Outpatient (CLI) | payer MEDICARE, MEDICAID ==
[~2024-08-22] MED LIST changes: +NYST-13 TOP; -NYST0.1C TOP
== END ==
LOC: M SOG 07:56
PROVIDERS: ATTEND Physician Assistant
DX: S72.102D Unspecified trochanteric fracture of left femur, subsequent encounter for closed fracture with routine healing (principal)

== ENCOUNTER → 2024-09-15 | Outpatient (REF) | payer MEDICARE, MEDICAID ==
[~2024-09-15] MED LIST changes: -NYST-13 TOP; +NYST0.1C TOP
[2024-09-15 10:03] LABS: HEMOGLOBIN A1c 5.6 % (4.0-6.0)
== END ==
LOC: SKLAB8 07:40
PROVIDERS: ATTEND Internal Medicine
DX: E11.9 Type 2 diabetes mellitus without complications (principal)

== ENCOUNTER → 2025-02-02 | Outpatient (CLI) | payer MEDICARE, MEDICAID ==
[~2025-02-02] MED LIST changes: +SENN-225 PO; -SENO8.6T5 PO
== END ==
LOC: M SOG 07:20
PROVIDERS: ATTEND Physician Assistant
DX: S72.102D Unspecified trochanteric fracture of left femur, subsequent encounter for closed fracture with routine healing (principal)

== ENCOUNTER → 2025-03-01 | Outpatient (REF) | payer MEDICARE, MEDICAID ==
[2025-03-01 07:45] LABS: BASO # 0.1 10^3/uL (0.0-0.2); BASO % 0.8 % (0.0-1.0); EOS # 0.3 10^3/uL (0.0-0.5); EOS % 4.5 % (0.0-3.0); LYMPH # 1.4 10^3/uL (1.5-5.0); LYMPH % 21.3 % (24.0-44.0); MONO # 0.7 10^3/uL (0.0-0.8); MONO % 10.3 % (2.0-8.0); NEUTROPHILS # 4.0 10^3/uL (1.5-8.5); NEUTROPHILS % 62.5 % (36.0-66.0); PLATELET COUNT, AUTOMATED 266 10^3/uL (150-450)
[2025-03-01 08:03] LABS: ESTIMATED AVERAGE GLUCOSE 126.0 MG/DL (60-110)
[2025-03-01 08:12] LABS: ALT/SGPT 35.0 U/L (7.0-40); AST/SGOT 27.0 U/L (<34); CALCIUM LEVEL 9.0 MG/DL (8.3-10.6); CARBON DIOXIDE LEVEL 30.0 MMOL/L (20-31); CHLORIDE LEVEL 101.0 MMOL/L (98-107); CHOLESTEROL LEVEL 153.0 MG/DL (<200); CHOLESTEROL RISK RATIO 3.35 (<5); CREATININE FOR GFR 1.44 MG/DL (0.70-1.30); GLOMERULAR FILTRATION RATE 47.9 (>35); LDL CHOLESTEROL 93.8 MG/DL (<100); NON-HDL-C 107.4 MG/DL; POTASSIUM SERUM 4.1 MMOL/L (3.5-5.1); SODIUM LEVEL 140.0 MMOL/L (136-145); TRIGLYCERIDES LEVEL 68.0 MG/DL (<150)
== END ==
LOC: SKLAB8 07:00
PROVIDERS: ATTEND Family Medicine
DX: E11.9 Type 2 diabetes mellitus without complications (principal)